=== PATIENT | female | born 1955 | race Caucasian/White ===

== ENCOUNTER 2023-11-16 06:48 | Outpatient (OUT) | payer MEDICARE, SELFPAY ==
[2023-11-16 07:30] LABS: Basophils Percent Auto 0.4 % (0.2-2.0); Eosinophils Absolute Auto 0.2 10^3/uL (0.0-0.7); Eosinophils Percent Auto 2.3 % (0.9-7.0); Hematocrit 42.4 % (36.0-48.0); Hemoglobin 12.9 g/dL (12.0-16.0); Immature Granulocytes Abs Auto 0.02 10^3/uL (0.00-0.03); Immature Granulocytes Pct Auto 0.2 % (0.0-0.5); Lymphocytes Absolute Auto 1.3 10^3/uL (1.2-3.8); Lymphocytes Percent Auto 14.5 % (20.5-60.0); Mean Corpuscular HGB Conc 30.4 g/dL (29.9-35.2); Mean Corpuscular Hemoglobin 27.9 pg (26.7-34.0); Mean Corpuscular Volume 91.6 fL (81.0-99.0); Mean Platelet Volume 9.4 fL (9.5-13.5); Monocytes Absolute Auto 0.6 10^3/uL (0.3-0.8); Neutrophils Percent Auto 76.6 % (43.0-75.0); Platelet Count 305 10^3/uL (150-450); Red Blood Count 4.63 10^6/uL (4.20-5.40); Red Cell Distribution Width 13.2 % (11.0-15.0); White Blood Count 9.1 10^3/uL (4.0-11.0)
[2023-11-16 08:15] LABS: Alanine Aminotransferase 25 U/L (14-59); Albumin Globulin Ratio 1.1; Albumin Level 3.5 g/dL (3.4-5.0); Alkaline Phosphatase 89 U/L (46-116); Anion Gap 12.1; Aspartate Amino Transferase 15 U/L (15-37); Bilirubin Total 0.6 mg/dL (0.2-1.0); Calcium 9.5 mg/dL (8.5-10.1); Carbon Dioxide 29.5 mmol/L (21.0-32.0); Chloride 105 mmol/L (98-107); Chol HDL Ratio 3.1; Cholesterol 218 mg/dL (<=200); Estimated GFR (African America >60 (>=60); Estimated GFR (Non-African Ame 59 (>=60); Globulin 3.2 g/dL; Glucose 97 mg/dL (74-106); HDL Cholesterol 70 mg/dL (40-60); Potassium 4.6 mmol/L (3.5-5.1); Sodium 142 mmol/L (136-145); Total Protein 6.7 g/dL (6.4-8.2); Triglycerides 166 mg/dL (<=150); VLDL CHOLESTEROL 33.2 mg/dL
== END 2023-11-16 06:49 | disposition home or self-care (01) ==
PROVIDERS: PCP Family Medicine; Visit Provider Family Medicine
DX: Z00.00 Encounter for general adult medical examination without abnormal findings (principal); E78.2 Mixed hyperlipidemia
CPT/HCPCS: 36415; 80053; 80061; 85025

== ENCOUNTER 2023-12-09 07:28 | Outpatient (OUT) | payer MEDICARE, SELFPAY ==
--- NOTE | 2023-12-09 07:31 | MM_ITS ---
Patient Name: JUANITA STOKES MR#: [id number] : 1955 Exam Date: 12/09/2023 Ordering Doctor: DR Yun Belcher M.D. RADIOLOGY REPORT PROCEDURE: MM TOMOSYNTHESIS SCREENING BI COMPARISON: MG MAMM SCREEN 3D FRED CAD, 11/18/2022. MG MAMM SCREEN 3D FRED CAD, 11/10/2021. INDICATIONS: Screening Calculator Name NCI Breast Cancer Risk Assessment Tool 5 Year Breast Cancer Risk 3.10% Lifetime Breast Cancer Risk 10.50% Personal Breast Cancer No Personal Ovarian Cancer No Treatments None Family Cancers Father with skin cancer at age ~70; Sister with breast cancer at age 38; Uncle-paternal with colon cancer at age 86. LOCATION: [facility] BREAST COMPOSITION: Scattered areas fibroglandular density. FINDINGS: DIAGNOSTIC CATEGORY 1--NEGATIVE. NO CHANGE FROM COMPARISON ASSESSMENT. Scattered benign-appearing calcifications are present. Scattered benign-appearing lymph nodes are present. RIGHT BREAST: No significant suspicious finding. LEFT BREAST: No significant suspicious finding. RECOMMENDATIONS: ROUTINE MAMMOGRAM AND CLINICAL EVALUATION IN 12 MONTHS. PLEASE NOTE: A NORMAL MAMMOGRAM DOES NOT EXCLUDE THE POSSIBILITY OF BREAST CANCER. A CLINICALLY SUSPICIOUS PALPABLE LUMP SHOULD BE BIOPSIED. Dictated by: Swapnil Vincent MD on 12/12/2023 at 07:56 Approved by: Swapnil Vincent MD on 12/12/2023 at 07:57
--- OUTSIDE RECORDS SUMMARY | 2023-12-09 07:31 | XMS_ITS | CCD ---
Author Name Unknown Address [address] [place] [address] Organization [facility] Care Team Providers Care [employer] News Reporter Name Role Phone KamleshBabita Unavailable YUN GLOVER Primary Care Physician [phone] Vishal WOODARD Attending Unavailable Vishal WOODARD Referring Unavailable Vishal WOODARD Admitting Unavailable Racheal Macias Admitting Unavailable Racheal Macias Attending Unavailable Racheal Macias Attending Unavailable Yun Glover Unavailable DR YUN GLOVER Primary Care Unavailable DIAB ., PAYAM Admitting Unavailable DIAB ., PAYAM Consulting Unavailable DIAB ., PAYAM Attending Unavailable ADALBERTO, DR YUN Tijerina Primary Care Unavailable ADALBERTO, DR YUN Tijerina Primary Care Unavailable ADALBERTO, DR YUN Tijerina Attending Unavailable PRESTON, DR SOLOMON Byrne Consulting Unavailable ADALBERTO, DR YUN Tijerina Admitting Unavailable ADALBERTO, DR YUN Tijerina Consulting Unavailable Camila Mcdonald Unavailable MD Yun Glover Primary Care Provider [phone] GOLDY Mcdonald Attending Provider MD Yun Glover Attending Provider Yun Glover Attending Unavailable Yun Glover Admitting Unavailable Camila Mcdonald Attending Unavailable Camila cMdonald Admitting Unavailable Yun Glover Primary Care Unavailable Allergies Allergy Classification Reported Allergen(s) Allergy Type Date of Onset Reaction(s) Facility (5 sources) patient allergy list reviewed by nurse or physicia Propensity to adverse reactions 9 Comment:Done Freeze Tag Other (5 sources) Allergies Reconciled Propensity to adverse reactions Unknown Freeze Tag Other Medications Current Medications Medication Drug Class(es) Dates Sig (Normalized) Sig (Original) Aspir-81 81 MG (7 sources) take 1 tablet by mouth once daily Aspir-81 81 MG 1 tablet Orally Once a day Active aspirin 81 mg oral tablet (2 sources) Platelet Aggregation Inhibitor, Nonsteroidal Anti-inflammatory Drug Start: 02-15-2013 take 1 tablet by mouth once daily aspirin 81 mg oral tablet 81 mg = 1 tab(s), Oral, Daily, Refills(s) 0, Prophylaxis Start Date: 02/15/13 Status: Ordered atorvastatin 10 mg oral tablet (9 sources) HMG-CoA Reductase Inhibitor Start: 02-15-2013 take 1 tablet by mouth once daily at bedtime Lipitor 10 mg Tab 10 mg = 1 tab(s), Oral, Once a day (at bedtime), Refills(s) 0, High cholesterol Start Date: 02/15/13 Status: Ordered take 1 tablet by mouth once najma y Atorvastatin Calcium 20 MG TAKE 1 TABLET BY MOUTH EVERY DAY for 90 Active Atorvastatin Elliott cium Active calcium carbonate 1250 mg oral tablet (4 sources) take 1 tablet by mouth every twelve hours Calcium 500 MG 1 tablet with meals Orally Twice a day Active famotidine 20 mg oral tablet (2 sources) Histamine-2 Receptor Antagonist Start: End: take 1 tablet by mouth once daily at bedtime Pepcid 20 mg Tab 20 mg = 1 tab(s), Oral, Once a day (at bedtime), X 90 day(s), # 90 tab(s), Refills(s) 0, Pharmacy: [facility]/pharmacy #[id number], 169, cm, 12/10/22 14:03:00 EST, Height/Length Dosing, 92.2, kg, 12/10/22 14:03:00 EST, Weight Dosing Start Date: 12/10/22 Stop Date: 03/10/23 Status: Ordered magnesium sulfate 225 MG / potassium chloride 188 MG / sodium sulfate 1479 MG Oral Tablet [Sutab] (1 source) Start: 023 take 1 tablet by mouth once Sutab oral tablet See Instructions, 1 EA, Refill(s) 0, BOB, Please follow instructions per packaging and physician's handout, [facility]/pharmacy #[id number], 169, cm, 12/10/22 14:03:00 EST, Height/Length Dosing, 92.2, kg, 12/10/22 14:03:00 EST, Weight Dosing Start Date: 12/10/22 Status: Ordered meloxicam 15 mg oral tablet (6 sources) Nonsteroidal Anti-inflammatory Drug take 1 tablet by mouth every twenty-four hours Meloxicam 15 MG 1 tablet Orally Once a day for 30 days Active methylPREDNISolone 4 mg oral tablet (2 sources) Corticosteroid Start: Medrol 4 MG as directed Orally As Directed for 6 days Jul, Active montelukast 10 mg oral tablet (2 sources) Leukotriene Receptor Antagonist Start: take 10 mg by mouth once daily montelukast 10 mg, Oral, Daily, Refills(s) 0, Allergy symptoms Start Date: 07/15/21 Status: Ordered omeprazole 20 mg delayed release oral capsule (7 sources) Proton Pump Inhibitor take 1 capsule by mouth once daily PriLOSEC 20 MG 1 capsule Orally Once a day Active pantoprazole 40 mg delayed release oral tablet (4 sources) Proton Pump Inhibitor Start: 023 End: 023 take 1 tablet by mouth once daily Pantoprazole [address] Tab 40 mg = 1 tab(s), Oral, Daily, X 90 day(s), # 90 tab(s), Refills(s) 2, Pharmacy: [facility]/pharmacy #[id number], 169, cm, 12/10/22 14:03:00 EST, Height/Length Dosing, 92.2, kg, 12/10/22 14:03:00 EST, Weight Dosing Start Date: 12/10/22 Stop Date: 09/06/23 Status: Ordered Completed/Discontinued Medications Medication Drug Class(es) Dates Sig (Normalized) Sig (Original) Docusate (7 sources) Doculase Not-Ervin ing/PRN Doculase Not-Ervin ing Doculase Active paxlovid (300/100) 20 x 150 mg & 10 x 100mg tablet therapy pack (3 sources) Start: 02-24-2023 take 3 tablets by mouth every twelve hours Paxlovid (300/100) 20 x 150 MG & 10 x 100MG 3 tablets Orally Twice a day for 5 days Feb, Not-Taking/PRN triamcinolone acetonide 40 mg/ml injectable suspension (6 sources) Corticosteroid Start: 05-26-2022 Kenalog-40 May, 40 mg Vitamin D 1000 UNIT (7 sources) take 1 tablet by mouth once daily as needed Vitamin D 1000 UNIT 1 tablet Orally Once a day Not-Taking/PRN take 1 tablet by mouth once najma y Vitamin D 1000 UNIT 1 tablet Orally Once a day Not-Taking take 1 tablet by mouth once najma y Vitamin D 1000 UNIT 1 tablet Orally Once a day Active {20 (nirmatrelvir 150 MG Oral Tablet) / 10 (ritonavir 100 MG Oral Tablet) } Pack [Paxlovid 5-Day] (3 sources) Start: 02-24-2023 take 3 tablets by mouth every twelve hours Paxlovid (300/100) 20 x 150 MG & 10 x 100MG 3 tablets Orally Twice a day for 5 days Feb, Not-Taking Start: 02-24-2023 take 3 tablets by mo uth every twelve hours Paxlovid (300/100) 20 x 150 MG & 10 x 100MG 3 tablets Orally Twice a day for 5 days Feb, Active Problems Active Problems Problem Classification Problem Date Documented Da te Episodic/Chronic Coagulation and hemorrhagic disorders (5 sources) Spontaneous ecchymosis; Translations: [Spontaneous ecchymoses] Episodic Disorders of lipid metabolism (10 sources) Hyperlipidemia; Translations: [Hyperlipidemia, unspecified] Chronic Diverticulosis and diverticulitis (2 sources) Diverticulitis 07-27-2019 Chronic E Codes: Struck by; against (1 source) Walked into furniture, initial encounter; Translations: [WALKED INTO FURNITURE INITIAL ENC] Onset: Episodic Esophageal disorders (12 sources) Gastroesophageal reflux disease; Translations: [GERD [Gastroesophageal reflux disease]] Chronic Gastritis and duodenitis (2 sources) Chronic gastritis 09-04-2021 Chronic Hemorrhoids (2 sources) Hemorrhoids 07-27-2019 Episodic Joint disorders and dislocations; trauma-related (6 sources) Patellofemoral stress syndrome; Translations: [Patellofemoral disorders, right knee] Chronic Osteoarthritis (5 sources) Primary osteoarthritis, left ankle and foot; Translations: [Osteoarthritis of left foot] Chronic Other aftercare (1 source) manager terminal (current) use of aspirin; Translations: [FCI CURRENT USE OF ASPIRIN] Onset: 3 Episodic Other and unspecified benign neoplasm (6 sources) History of polyp of colon 12-09-2022 Episodic Other and unspecified benign neoplasm (3 sources) Polyp of colon; Translations: [Polyp of colon] Onset: 3 09-28-2019 Episodic Other circulatory disease (2 sources) Feeling of lump in throat 07-15-2021 Episodic Other connective tissue disease (3 sources) Other specified soft tissue disorders; Translations: [OTHER SPEC SOFT TISSUE DISORDERS] Onset: 3 Episodic Other connective tissue disease (1 source) Pain in left foot Episodic Other gastrointestinal disorders (2 sources) Abdominal wind pain 12-10-2022 Episodic Other gastrointestinal disorders (2 sources) Heartburn 07-27-2019 Episodic Other lower respiratory disease (5 sources) Chronic cough; Translations: [Chronic cough] Episodic Other non-traumatic joint disorders (5 sources) Arthralgia of the lower leg; Translations: [Pain in right knee] Episodic Other nutritional; endocrine; and metabolic disorders (5 sources) Obese class I; Translations: [Body mass index (BMI) 31.0-31.9, adult] Chronic Other screening for suspected conditions (not mental disorders or infectious disease) (5 sources) Encounter for screening mammogram for malignant neoplasm of breast; Translations: [ENC SCR MAMMO MALIG NEOPLASM BREAST] Onset: 2 Episodic Other upper respiratory disease (12 sources) Seasonal allergic rhinitis; Translations: [Other seasonal allergic rhinitis] Chronic Other upper respiratory disease (1 source) Other seasonal allergic rhinitis Onset: 1 Resolved: 1 Chronic Other upper respiratory disease (5 sources) Allergic rhinitis; Translations: [Allergic rhinitis, unspecified] Chronic Residual codes; unclassified (2 sources) Family history of cancer of colon 12-10-2022 Episodic Residual codes; unclassified (2 sources) Family history of polyp of colon 12-10-2022 Episodic Residual codes; unclassified (5 sources) Family history of breast cancer; Translations: [Family history of malignant neoplasm of breast] Episodic Residual codes; unclassified (5 sources) Family history of malignant neoplasm of gastrointestinal tract; Translations: [Family history of malignant neoplasm of digestive organs] Episodic Residual codes; unclassified (5 sources) Family history of diabetes mellitus; Translations: [Family history of diabetes mellitus] Episodic Screening and history of mental health and substance abuse codes (1 source) Personal history of nicotine dependence; Translations: [PERSONAL HISTORY OF NICOTINE DEPEND] Onset: 3 Episodic Superficial injury; contusion (1 source) Contusion of right lower leg, initial encounter; Translations: [CONTUSION RIGHT LOWER LEG INITIAL] Onset: 3 Episodic Unclassified (1 source) Encounter for screening for malignant neoplasm of cervix; Translations: [Encounter for screening for malignant neoplasm of cervix] Onset: 3 Unclassified (1 source) Pain in left foot; Translations: [Pain in left foot] Onset: 3 Past or Other Problems Problem Classification Problem Date Documented Da te Episodic/Chronic Acute bronchitis (5 sources) Acute bronchitis; Translations: [Acute bronchitis, unspecified] Onset: 12-04-2013 Episodic Conditions associated with dizziness or vertigo (5 sources) Benign paroxysmal positional vertigo; Translations: [Benign paroxysmal positional vertigo] Onset: 05-19-2017 Episodic Esophageal disorders (1 source) Esophageal disorders Immunizations and screening for infectious disease (6 sources) Contact with and (suspected) exposure to other viral communicable diseases; Translations: [Vaccination given] Onset: 09-14-2018 Resolved: 10-13-2021 Episodic Mycoses (5 sources) Candidiasis; Translations: [Candidiasis, unspecified] Onset: 09-10-2015 Episodic Other connective tissue disease (1 source) Myalgia/myositis - multiple; Translations: [Unspecified myalgia and myositis] Onset: 03-16-2019 Episodic Other connective tissue disease (5 sources) Hand pain; Translations: [Pain in unspecified hand] Onset: 12-25-2013 Episodic Other connective tissue disease (5 sources) Spasm; Translations: [Spasm of muscle] Onset: 09-14-2018 Episodic Other connective tissue disease (4 sources) Muscle pain; Translations: [Unspecified myalgia and myositis] Onset: 03-16-2019 Episodic Other non-traumatic joint disorders (5 sources) Shoulder joint pain; Translations: [Pain in joint, shoulder region] Onset: 08-14-2013 Episodic Other upper respiratory disease (5 sources) Bleeding from nose; Translations: [Epistaxis] Onset: 09-14-2018 Episodic Other upper respiratory infections (5 sources) Acute maxillary sinusitis; Translations: [Acute recurrent maxillary sinusitis] Onset: 08-30-2016 Episodic Residual codes; unclassified (1 source) Family history of malignant neoplasm of breast; Translations: [FAMILY HX MALIG NEOPLASM OF BREAST] Onset: 11-20-2022 Episodic Residual codes; unclassified (1 source) Family history of malignant neoplasm of digestive organs; Translations: [FAM HX MIRTA NEOPLASM DIGESTIV ORGN] Onset: 11-20-2022 Episodic Residual codes; unclassified (1 source) Family history of malignant neoplasm of other organs or systems; Translations: [FAM HX MALHOLGER NEOPLASM OTH ORGN/SYS] Onset: 11-20-2022 Episodic Urinary tract infections (5 sources) Acute cystitis; Translations: [Acute cystitis] Onset: 09-10-2015 Episodic Viral infection (1 source) COVID-19 Results Test Name Value Interpretation Reference Range Facility IGP,Aptima HPV,Age Gdlnon Pap Image Guided Note Normal . [facility] Comment on above: Order Comment: LATISHA LIZAMA TECHNIQUE:: BROOM-ALONE GYNOCOLOGICAL BODY SITE:: CERVIX ENDOCERVIX Result Comment: TEST S RESULT FLAG UNITS REF RANGE LAB Clinician Provided Cytology Information Source.............Cervix;Endocervix No. of containers..01 ThinPrep Vial Age Algo ACOG Allyn... Note 01 <21 or >65 or no age provided FLAG LEGEND: L-Low Normal,H-High Normal,LL-Alert Low,HH-Alert High <-Panic Low,>-Panic High,A-Abnormal,AA-Critical Abnormal Performed at: 01 =G [facility] [address] [place] [id number] Argelia Stewart MD, Performed By: #### P AP [id number] #### [facility] , Result Comment: TEST S RESULT FLAG UNITS REF RANGE LAB DIAGNOSIS: 02 NEGATIVE FOR INTRAEPITHELIAL LESION OR MALIGNANCY. CELLULAR CHANGES ASSOCIATED WITH ATROPHY ARE PRESENT. Specimen adequacy: 02 Satisfactory for evaluation. Endocervical component may not be distinguished in cases of atrophy. Performed by: 02 John Birch, Conveyor Technician ([facility]) . 02 Note: Note 02 The Pap smear is a screening test designed to aid in the detection of premalignant and malignant conditions of the uterine cervix. It is not a diagnostic procedure and should not be used as the sole means of detecting cervical cancer. Both false-positive and false-negative reports do occur. Test Methodology: Note 02 This liquid based ThinPrep(R) pap test was screened with the use of an image guided system. FLAG LEGEND: L-Low Normal,H-High Normal,LL-Alert Low,HH-Alert High <-Panic Low,>-Panic High,A-Abnormal,AA-Critical Abnormal Performed at: 02 WB [facility] [address] [place] [address] Argelia Stewart MD, Performed at: =G - [facility] [address], [place] [id number] Flame Hardening Machine Setter: Argelia Stewart MD, Phone: [phone] Performed at: - [facility] [address], [place] [id number] Flame Hardening Machine Setter: Argelia Stewart MD, Phone: [phone] PERFORMED BY: [address] [facility] PATHOLOGIST CHIEF CONCIERGE ROSALBA SONI M.D. XR foot LT min 3V*on 023 XR foot LT min 3V* [facility] [employer] Other XR foot LT min 3V* [facility] Freeze Tag Other XR foot LT min 3V* [address] [facility] Freeze Tag Other XR foot LT min 3V* [facility] Freeze Tag Other XR foot LT min 3V* XRay Report Freeze Tag Other XR foot LT min 3V* Signed Freeze Tag Other XR foot LT min 3V* Patient: Sharyn Riggs MR#: [id number] Freeze Tag Other XR foot LT min 3V* : 1955 Acct:[id number] Freeze Tag Other XR foot LT min 3V* Age/Sex: 68 / F ADM Date: 08/06/23 Freeze Tag Other XR foot LT min 3V* Loc: XDUCLY Room: Type: [facility] Freeze Tag Other XR foot LT min 3V* Attending Dr: Camila WINSLOW Freeze Tag Other XR foot LT min 3V* Copies to: GOLDY Broderick Freeze Tag Other XR foot LT min 3V* Ordering Provider: GOLDY Brdoerick Freeze Tag Other XR foot LT min 3V* Date of Service: 08/06/23 Freeze Tag Other XR foot LT min 3V* XR/XR foot LT min 3V*: LEFT FOOT PAIN Freeze Tag Other XR foot LT min 3V* XR foot LT min 3V* 08/06/2023 11:23 AM Freeze Tag Other XR foot LT min 3V* SIGNS AND SYMPTOMS: Left foot pain along the dorsum of the left foot/metatarsals for 3 weeks Freeze Tag Other XR foot LT min 3V* PROTOCOL: Frontal, lateral, and oblique radiographs of the left foot Freeze Tag Other XR foot LT min 3V* COMPARISON: None Freeze Tag Other XR foot LT min 3V* FINDINGS: Freeze Tag Other XR foot LT min 3V* The bones are in anatomic alignment. There is no fracture or dislocation. Degenerative changes are Freeze Tag Other XR foot LT min 3V* noted throughout the midfoot with mild soft tissue swelling over the dorsum of the midfoot. Mild Freeze Tag Other XR foot LT min 3V* plantar and Achilles surface calcaneal spurring is noted. Freeze Tag Other XR foot LT min 3V* XR/XR foot LT min 3V* Freeze Tag Other XR foot LT min 3V* IMPRESSION: Freeze Tag Other XR foot LT min 3V* No acute bony injury. Freeze Tag Other XR foot LT min 3V* Degenerative changes are noted in the midfoot with soft tissue swelling over the dorsum of the Freeze Tag Other XR foot LT min 3V* midfoot. Freeze Tag Other XR foot LT min 3V* Impression dictated by: Jay Bowling M.D.08/06/2023 11:49 AM Freeze Tag Other XR foot LT min 3V* Dictation Location: RADIO-PC-13 Freeze Tag Other XR foot LT min 3V* Transcribed By: PWS 08/06/23 [facility] Freeze Tag Other XR foot LT min 3V* Dictated By: Jay Bowling II, MD 08/06/23 [facility] Freeze Tag Other XR foot LT min 3V* Signed By: Freeze Tag Other XR foot LT min 3V* 08/06/[address] [place] [address] [employer] Other XR foot LT min 3V* [facility] Main [place] [address] [place] [address] XRay Report Signed Patient: Sharyn Riggs MR#: [id number] : 1955 Acct:[id number] Age/Sex: 68 / F ADM Date: 08/06/23 [facility]: Type: [facility] Attending Dr: Camila WINSLOW Copies to: GOLDY Broderick Ordering Provider: GOLYD Broderick Date of Service: 08/06/23 XR/XR foot LT min 3V*: LEFT FOOT PAIN XR foot LT min 3V* 08/06/2023 11:23 AM SIGNS AND SYMPTOMS: Left foot pain along the dorsum of the left foot/metatarsals for 3 weeks PROTOCOL: Frontal, lateral, and oblique radiographs of the left foot COMPARISON: None FINDINGS: The bones are in anatomic alignment. There is no fracture or dislocation. Degenerative changes are noted throughout the midfoot with mild soft tissue swelling over the dorsum of the midfoot. Mild plantar and Achilles surface calcaneal spurring is noted. XR/XR foot LT min 3V* IMPRESSION: No acute bony injury. Degenerative changes are noted in the midfoot with soft tissue swelling over the dorsum of the midfoot. Impression dictated by: Jay Bowling M.D.08/06/2023 11:49 AM Dictation Location: [place] [address] Transcribed By: NICKY 08/06/23 1149 Dictated By: Jay oBwling II, MD 08/06/23 1147 Signed By: 08/06/23 1149 [facility] Postoperative Documentson Postoperative Documents [id number] 1.00CD:127 Normal [facility] Patient Letter FTMCon 2022 Patient [place] [facility] [place] 15, 2023 [place] [address] SHARYN RIGGS 1955 Below is a summary of the results of your recent colonoscopy. Your results have been sent to your primary care provider along with recommendations on when the procedure should be repeated. COLONOSCOPY WITH POLYP REMOVAL _X__ Normal - NO CANCER Type of polyp tubular adenoma - not cancer but can become cancer if not removed. Additional colonoscopies will be necessary to monitor your condition and assure that new polyps have not developed. Based on your results we are recommending you repeat the procedure in 5 years You will be placed in our reminder system and will receive a reminder letter prior to your next due date. [facility] [phone] Normal [facility] Reminderson 02-15-2023 Reminders - From: Elisabeth Beck I To: JULIO - Reminders/Recalls; Sent: 02/15/2023 14:22:52 EDT Show up: 12/10/2027 14:22:00 EST Subject: Colonoscopy Recall Due Date/Time: 02/08/2028 14:22:00 EDT Reminder/Recall 5 year colon recall 02/08/2028 Dr. Woodard [facility] IntraOperative Documentson 0 02-11-2023 IntraOperative Documents [id number] .00CD:127 [facility] Coding Summary.on 02-10-2023 Coding Summary. CD:[id number] W w+PGhlYWQ+QZ9DCQKxL01 ahGOadD3vL9FIBUjAKqoj DSYOBJvQEpMxycKrDI8gp XNjZXJu IC8+RN8oBOQaXdbgwZXuh 1Q4eRM3Q96lbv5kIMvcyX J7THXqTmZyzeqas2sqvIo 6IDcuNmluOyBt NWRphL77MYH1fI40Pz69w CBshZGpb8uxgSh5ThKwEU MzWDT9bBqnBCsqr2IiGQA oA21iaGXyr8B9 HFPaoJvobTNoBgThdYJ2y Y0rVKwncbfpd5tdjvksOv u5fq47dYGhr2F0lTW2D3M lvgY6YNJukYOi LaxppNNXrI7vibfeu4zln jskXnZnVPCeFIm2HYp5SH FzjNixKlHmJX21RYK9NLW uabDfO1QqFPTs sZsqAtA7z4S1Ff9BF5YJX kbuR6LDRRDYYGpyqEG+PC 52ox82Q8LyBbbgUcz0HYY wQJK7aAG8eG9y YOSfJOhxb7L1mUD5V4Eyk sVgkt1tg1hsOVAjOFsyG4 7zxCLps7D6OEQuiTL7MZY ppCtaAxIzjG17 Oyc+WDKepXfrg7RtPxzqp 0xiy0zkqHb8CuctLVXckb UyjZnuUYG7y1WdYq4qEYQ qbME3pJV4zB1u IaDsSoK9ADndL972CaIzx FCdNykdB63hG2ZqeHD+PH AgGzt8ROHqxIrfRX7vE2U hZGRpbmctbGVm sUntQX2oTCRqfqvzHDTag F3fMYDyJ1c8QiMcQoC4LH iyK9XtQLXwnfklKe17kO3 dIpZsWpL0ZPgl R6YfllP8NBLpeJMaNRmbK KB8C24tk9A6WWIoEOZxDK N2cRT4hS1mwJnkvwsfcTA mdDsgdmVydGlj NUsgQHjdW787QMBopUumL kNvZGluZyBEYXRlOiAgMD MvMjMvMjAyMzwvdGQ+PHR tOLT5fCuoDOAl zMAdLLhbBr1pdWsnxZpbL I6nVSSbfaoeYMChjX5uZN MecNKfaUauNQ9jVJKglff zx824OaKcSOO2 EANufKAoN4BbqI9oDlHcA HVjXVPsN1IcsCEyXSxgV1 32TKvbEjQ9JVKafvZnP2C sLWFsaWduOiB0 i9B9Hz9Tl5PgyxjxO0Euc QYiBxQyMotrLOb9G7NjEo wvdHI+WS78CPFtBT68OSm 1WTU9sAsjFXyl JVYmQ1VmnJ6zVeLyQDLnJ GRkOyc+PHRhYmxlIHdpZH RoPScxMDAlJyBzdHlsZT0 xAe2vJRZnPXGl kSsigBGfWmNev5bvXBKbJ FjmCX0kvEusE3VadJA3QK Qko2h7Xs11E91zQ7QuzOH +RMKjsJV8dZS5 pS5gYcFnRpC5BGfvL559K qKcjOIdZtuwz3nnr7lrcJ t6KoM9MLPbvtOtcOnkKDY 4f8AeOm02L45p IHdpZHRoPSIxNSUiIHZhb Qrxrb7wqF4mIt2+PGNvbC U6bJH3uU5bRfXbOcQ2UOr sS855BcKlxUPj Vxzcl2wjz3qukWq0JdWkG MQzlcLisJirTHG8v7OuZj 18B6SqvAhje4QdVgk1ti8 3bPTdr2B2dUX8 D3AnIUGsvbnvgUMacOvyG I0sTPDqsiohMOHozZ0fIG NlZ5d4RmDtAzC2WVfyE4E aeqR0WBRabPDp GWAlwZUKfN0zfqctr0zcx uatKtFdMKMpHRd9ISq9PB NpiTmiRiAxSGY9DkB6WLN 5dNQlmD4zrGwx jaswwE2aSzr+QME1tRPzw DCJSM2bXmwzoDC+PHRkIH K2bUwcCNwxOKIgtE7mIGD lN8c0XgYyKuJ7 HUxuR8PdreC7DZOtpALtY CTxuPOMhL6nozrck8oulz mjMtOnSKCxELo8FDa0WFZ saWduOiBsZWZ0 PcV4YKC4tXQpbJ2ztSbsj ekepN2gQzo+QmlydGggRG S8EYg6A2JmZua1ELKvjNn eOS0lcOEmYZac Ub8ukLszvNuiQD5vATMfl ylts767OxTvu8ejNVByoM KzNKlmXOJ8S64ry2W1MLL iYABsOQI0cDY4 jL9auHawaanchIOajDaew qKcwSjrFOsyIPsqL577JL CspTvwIcPnTGb8F8QlSdd 7DSRlnYcuMW9g uGRrDBorQj6vnTlpoZgiH T0rEMZoknzue372KjAhb1 ocDFYuzYIrMFkzXSB7U73 ew1W6UDUgCNCo FSD5iJB4bP4vqIzmrnnsg GVmdDsgdmVydGljYWwtYW zvL997VXNpcGhaKyArpTr 3F0HrLtg6OMAu iZcyGG9spIAcDErvMc5xz JivlBkaPG6dXGBokqpum0 45FpSjr4fgZALebJGmGPv mZPM6P29ge6X4 IFCcMUFmTJZ1fLR9hM3lk GlnbjogbGVmdDsgdmVydG yfWSmxBZyxZ911FIDbpXg nPlBhdGllbnQg THxeSFz6E0QmPywldOC+P T12GMOuGL90jILghPEbm7 xmbKv6TxTnBAYmFBW0uQh wSQbzc7QwRFGg P66ouLJkr5N6HHIkpQjuv CMaXgDwqHY8xW3sPOwpha utf1rsvmauVbejs4kdmw8 9vF55R52wMFge ZHRoPSIzMCUiIHZhbGlnb b5jwX8nGh7+XBEofTO0nA D8oS7dHZMkRtZ4NVooC91 9InRvcCIvPjxj r3kpa0kgrWy9SaE7ZIWjs vAuaRbkUMO4p8EeQy04E3 9sIHdpZHRoPSIyMCUiIHZ lzVkokh7nuH5o Ii8+ODLvbHB3nUC2uX3zC pByLyY8JMdvF250OwCcoN LeHrhtE33uH0DtxON+PHR wAkh6PXGkfAza WK0ryWRkRAhtIn9sUWM7G xEvEfKjRXkxY3HzAYLfxq ffbculeFQ7SANlVDVkkH5 9Mu5tjNjlAHXz eMSUmR0afxtpc3vynizaV xBtUVTwJNe7MHr5PGDodS lxSlLiXGM3NbE4DWD4hKC szL3ixZzsmkwj kT7qJ9HhSRQrhpzfNm65r P1dUxFqVeQ4LPmaMrm+Tk 9ATVNJLK7CGZmwtEV+PHR gYRL6cRymIYbi PQKsuN8tHZNgI0v4SpTbA yT2TMxkD8KhPSGytuibRw 60xZ8eSjOmYeL6CJemI1T wflZ6OQNnqBJc XWwbEJH6T14ju2F6EVVhN WZlRQA1uJC1iX1yhDbygk ogbGVmdDsgdmVydGljYWw kPTmcC770WJZu kVdxMmZ2YjJ6UjN0YQQ9P 6ZsThq8LSNudCmfNT8yvO HvHYjlIq4fnCzyzQeqWS4 wNTBpbjtwYWRk xS7mDHLrlKKkdSwzZB1wA UMvjoqsk188KfZvIUS1TM WaeASmP1FyeV9oDmIoOGY jESAbA7IiwGBv JZzfR037ZYfwDxB1MLUwc vRqJ5LcHKMzbUsqJlX7m2 Y6Ug69PaSTJZVkkeqxnFN +FFApUCR8bPji PFwmMCTxjO4yUXXwT0h8P pPjHgO0VAypG1JtJADxnk vhJa28eV1lLfTtYzH9ZYw gK4VqzzF4REYz mNGeGGplZIA0E35tt9Z0C NRhLRLxSHT3nUF5hB4yeX lnbjogbGVmdDsgdmVydGl nXDfrDIbtC997 IHRvcDsnPkZlbWFsZTwvd GQ+KYJlGNX8aYtzHVtqAR KfrG5zYEDhI7t1SzPtFbH 9BVvmZ6JsVGDr lmxjWj54oX0lLjBpCgQ1C EerX0JcbfW0PCArwIXaVP tjFSE3T48dm9K2NEEgTME nZIQ5lNA0hE7b bGlnbjogbGVmdDsgdmVyd FbeQXhnJBgfB720RGWpvF xwWg08vEHdvGwfwkB8O6G kPjwvdHI+PC90 RWIrAJ82gMDjdGAol0mwt Nr4RfQzBXAsXAV8uUfsPB nvy2GmBTMlH42jyKOhv6M 6IGNvbGxhcHNl WcWguHB2cG0eVOeubdrfj 6ejbkixKcbav7hbgc85pD 95G54wJEoxVLCqSYCpYJO kFLBlwLzqqj5t sW2pTc9+QYXogBJ7hOT6e W4lHsZuXcI4YDonQ373Wq OroRPaYaxib0cbq8zkcJh 9IjIwJSIgdmFs nJuzSJM6l0MbLa78D65pB HdpZHRoPSIyMCUiIHZhbG absb0hxY1xDc0+EK0oh5l olb32gW09eSY+ BQKjKBG0rIsoZPhiJVQua Z1lJMlnGiF7BTOxLhQlkS 36gUQpIPssEm2ujLjnsRp hMO0dVWFqcyqk x604YmSyy8gaVHZfgKJwM GrgUFC0E35vp8O8IRDuHI IzVNO2jMD6rB6daZgexko gbGVmdDsgdmVy cAplMTbcPCoeS831TUGzi CsaQuFtyTVxM7gbcsGBRP 1lOjwvdGQ+GFIwHAQ1tLj yTAcfSYAniJ3u FPHxD6n0NeKwXbI4DWzyJ 5MbmsS5GUKmjLKfLDLtkI CCdR1hyigpm5xprjkvBsZ uMPScXBo0XOu4 OFQgjVziAyKwHIB0KpG1O FX1zTFbvY7nxBaijbzppR 9wOyc+RklOOjwvdGQ+PHR rNYU3zKnfRNpq QDPewI3eAHUhB7h4PvYsO aO0DYqxP5KjhdP4DJYvkC JjZCHunPUXnS3ngwanq9h vcjogIzAwMDAw UOc9TTi3PLAdrSplZkDwQ UL0ImY5RYN3gXEccQ5hzQ gzhddgmX8sTts+TVJOOjw vdGQ+PHRkIHN0 iIitUFliZXWpxE7lLQSnY 5g4WsLeOvV5UYjsN0Irvo E6QSYgtXGaLSIhyJPDsJ7 ynezkh4uwljtc YpKuOZIpRPh7FUc8AXPgx OedCjTzJUN9VsB8LKC9jB JtaB6vzArhwcofbN2aIci +DEX0IVG1ZG01 YD94P6VlJqwswTOohXJ+P HRhYmxlIHdpZHRoPScxMD DnUlAadZrfKH7jRe0hVGM yLWNvbGxhcHNl MjEed0ha (more content not included)... Normal [facility] Main OR Intraoperative Recor don 02-10-2023 Main OR Intraoperative Record IntraOp Document Type FT Summary Primary Physician: Vishal WOODARD MD Finalized Date/Time: 02/10/23 07:41:19 Pt. Name: SHARYN RIGGS /Sex: 1955 Female Med Rec #: [id number] Physician: Vishal WOODARD MD Financial #: [id number] Pt. Type: O Room/Bed: / Admit/Disch: 02/07/23 12:18:07 - 02/07/23 23:59:59 Institution: Case Times FT Entry 1 Patient Times In Room 02/07/23 13:15:00 Out Room 02/07/23 13:38:00 Procedure Times Start 02/07/23 13:26:00 Stop 02/07/23 13:36:00 Anesthesia Times Start 02/07/23 13:15:00 Stop 02/07/23 13:38:00 Time at [place] 02/07/23 13:29:00 Last Modified By: Anna Borja RN 02/07/23 13:39:22 General Comments: 02/10/23 Chart opened to review and send charges LRoth CSFA Case Attendance FT Entry 1 Entry 2 Entry 3 Case Attendee Huong Virk CRNA, RN, Ann Irizarry Role Performed ANIMAL HUSBANDMAN [employer] Teacher Librarian - Primary Staff - Other Time In 02/07/23 13:15:00 02/07/23 13:15:00 02/07/23 13:25:00 Time Out 02/07/23 13:38:00 02/07/23 13:38:00 02/07/23 13:38:00 Procedure COLONOSCOPY(.) COLONOSCOPY(.) COLONOSCOPY(.) Comments Dr. Prescott supervising Help in room. procedure. Last Modified By: Kev BLACKBURN, Amy Borja RN, Anna Borja RN, Anna Salazar 02/10/23 07:40:43 02/07/23 13:39:30 02/07/23 13:39:30 Entry 4 Entry 5 Case Attendee Mauro BLACKBURN, Sonali WOODARD MD, Vishal Fletcher Role Performed Scrub - Primary Surgeon - Primary Time In 02/07/23 13:15:00 02/07/23 13:15:00 Time Out 02/07/23 13:38:00 02/07/23 13:38:00 Procedure COLONOSCOPY(.) COLONOSCOPY(.) Comments Last Modified By: Huong RN, Anna Borja RN, Anna Salazar 02/07/23 13:39:30 02/07/23 13:39:30 Perioperative Protocols FT Pre-Care Text: Implements protective measures prior to operative or invasive procedure, confirms identity before the operative or invasive procedure, verifies operative procedure, surgical site, and laterality Entry 1 Procedure(s) COLONOSCOPY(.) Patient Identity Birthday, ID Band Verified (select at Check, Patient least 2): Participation Consents / H and P Anesthesia Consent, Operative Site N/A Verified HandP, Surgery/Procedure Marking Verified Consent Surgical Site No Laterality Verified n/a Verified Procedure Verified Yes Correct Patient Yes Position Verified Availability Equipment, Medication Prep Dry n/a Verified (If Applicable) PreOp Antibiotic No Time Out Moose ANIMAL HUSBANDMAN, Given Participants Huong Knight RN, Mauro Joyner CST, SAMIR Salazar MD, Maher Time Out Complete 02/07/23 13:18:00 Outcomes Met? Yes Last Modified By: Anna Borja RN 02/07/23 13:18:24 Post-Care Text: The patient is free from signs and symptoms of injury caused by extraneous objects Allergy Information FT Pre-Care Text: Verifies allergies Entry 1 Allergies Reviewed? Yes Allergies Reviewed Self/Patient With Outcomes Met? Yes Last Modified By: Anna Borja RN 02/07/23 13:18:32 Post-Care Text: The patient received appropriate medication(s) safely administered during the perioperative period Surgical Procedures FT Entry 1 Procedure Description Procedure COLONOSCOPY Modifiers . Surgeon Description Colonoscopy with cecal mucosa bridge biopsy, ascending colon polypectomy. Primary Procedure Yes Primary Surgeon Vishal WOODARD MD Start 02/07/23 13:26:00 Stop 02/07/23 13:36:00 Anesthesia Type General Surgical Service Gastroenterology Wound Class 2 - Clean-Contaminated Last Modified By: Anna Borja RN 02/07/23 13:37:06 General Case Data FT Pre-Care Text: Classifies surgical wound, implements aseptic technique, initiates traffic control Entry 1 Case Information OR ENDO 1 FT Case Level Level 2 Wound Class 2 - Clean-Contaminated Specialty Gastroenterology ASA Class 2 Preop Diagnosis Hx colon polyps Postop Same As Preop No Postop Diagnosis External hemorrhoids, Outcomes Met? Yes ascending colon polyp and internal hemorrhoids. Last Modified By: Anna Borja RN 02/07/23 13:37:14 Post-Care Text: The patient is free from signs and symptoms of infection Skin Assessment (Pre Procedure) FT Pre-Care Text: Implements protective measures to prevent skin/ tissue injury due to thermal or mechanical sources Evaluates for signs and symptoms of physical injury to skin and tissue Entry 1 Skin Integrity Intact, [place], Warm, and Skin Abnormality No Dry Outcomes Met? Yes Last Modified By: Anna Borja RN 02/07/23 13:19:08 Post-Care Text: The patient is free from signs and symptoms of injury caused by extraneous objects Patient Positioning FT Pre-Care Text: Identifies physical alterations that require additional precautions for procedure-specific positioning, verifies presence of prosthetics or corrective devices, positions the patient, evaluates the patient for signs and symptoms of injury as a result of positioning Entry 1 Procedure COLONOSCOPY( (more content not included)... Normal [facility] Consenton 02-09-2023 Consent [id number]#1 .00CD:127 Normal [facility] Discharge Instructionson Discharge Instructions [id number]#1 .00CD:127 Normal [facility] Consent for Treatmenton 01-20 Consent for Treatment [id number]#1 .00CD:127 Normal [facility] Endoscopic Procedure Report - Otheron 02-07-2023 Endoscopic Procedure Report - Other Patient: SHARYN RIGGS Age: 67 years Sex: Female : 1955 Associated Diagnoses: None Author: Vishal WOODARD MD Pre-Procedure Procedure Date 02/07/2023 13:37:00 . Procedure Type: Colonoscopy with removal of tumor(s), polyp(s), or other lesion(s) by cold snare technique. Procedure provider Performed by Vishal Woodard MD. Current history and physical Documented on chart. Colorectal neoplasm risk assessment Average risk. Informed Consent After discussing the rationale, risks and benefits, and alternatives to this procedure, the patient provided signed consent for the procedure. Pre-procedure diagnosis: History of colon polyps. ASA Classification: Class III. . Procedure The procedure was performed in the hospital. Rectal exam was performed and was normal with no masses palpated. The patient was positioned in the left lateral decubitus position and a digital rectal exam was performed.. Endoscope type used was an adult-size. The endoscope was lubricated then introduced through the anus. The scope was advanced to the cecum verified by photographing the appendiceal orifice, verified by photographing the ileocecal valve, verified by transillumination, The time to the cecum was 3 minutes, The withdrawal time was 7 minutes. No difficulties encountered during the procedure. The bowel preparation quality was adequate (see polyps greater than or equal to 6 millimeters). The patient tolerated the procedure well. Findings 1. Sessile polyp, 5 mm, in the ascending, removed completely with cold snare 2. Moderate nonbleeding internal and external hemorrhoids Images Procedure images: Rec1_hd_video_ __[id number].jpg Rec1_hd_video_ _[id number].jpg Rec1_hd_video_2022_ __[id number].jpg Rec1_hd_video_ __[id number].jpg Rec1_hd_video_ __[id number].jpg . Post-Procedure Complications: none. Estimated blood loss: none. Specimens: sent to pathology. Devices/ implants: none left in place. Impression and Plan 1. Sessile polyp, 5 mm, in the ascending, removed completely with cold snare 2. Moderate nonbleeding internal and external hemorrhoids Recommendations: Repeat colonoscopy:: In 5 years, Pending pathology results. Follow-up:: Clinic follow-up in 1-2 weeks. Diet:: Resume previous diet. Medication resumption:: Continue current medications. Return to activities:: After 24 hours. Cecal mucosal bridge noted, 1 cm, biopsied [facility] Comment on above: Result Comment: Elec tronically Signed By: Vishal WOODARD MD\.br\Date and Time Signed: 02/07/23 14:08 EDT Other Comment: Neelam mckeon Attachment - attachment storage system not supported [id number] Can be viewed in source system Missing Attachment - attachment storage system not supported [id number] Can be viewed in source system Missing Attachment - attachment storage system not supported [id number] Can be viewed in source system Missing Attachment - attachment storage system not supported [id number] Can be viewed in source system Missing Attachment - attachment storage system not supported [id number] Can be viewed in source system Main OR PACU I Recordon 01-20 Main OR PACU I Record PACU Phase I Document Type FT Summary Primary Physician: Vishal WOODARD MD Finalized Date/Time: 02/07/23 14:20:26 Pt. Name: SHARYN RIGGS/Sex: 1955 Female Med Rec #: [id number] Physician: Vishal WOODARD MD Financial #: [id number] Pt. Type: O Room/Bed: / Admit/Disch: 02/07/23 12:18:07 - Institution: Case Times PACU I FT Pre-Care Text: Identifies barriers to communication and implements measures to provide psychological support Develops individualized plan of care, and ensures continuity of care Maintains patient's dignity and privacy, and maintains patient confidentiality Identifies and reports philosophical, cultural, and spiritual beliefs and values Identifies individual values and wishes concerning care Implements aseptic technique, and administers prescribed antibiotic therapy and immunizing agents as ordered Evaluates postoperative tissue perfusion Implements thermoregulation measures, and monitors body temperature Evaluates postoperative respiratory status Evaluates postoperative cardiac status Evaluates postoperative neurological status Assesses pain control, collaborated in initiating patient-controlled analgesia and implements alternative methods of pain control Verifies allergies, administers prescribed medications and solutions, evaluates response to medications Entry 1 In PACU I 02/07/23 13:41:00 Discharge from PACU 02/07/23 14:11:00 I Outcomes Met? Yes Last Modified By: Stephanie Bustillo I 02/07/23 14:20:08 Post-Care Text: The patient demonstrates knowledge of the expected response to the operative or invasive procedure The patient's care is consistent with the individualized perioperative plan of care The patient's right to privacy is maintained The patient's value system, lifestyle, ethnicity, and culture are considered, respected, and incorporated into the perioperative plan of care The patient participates in decisions affecting his or her perioperative plan of care The patient is free from signs and symptoms of infection The patient has wound/tissue perfusion consistent with or improved from baseline levels established preoperatively The patient is at or returning to normothermia at the conclusion of the immediate postoperative period The patient's respiratory function is consistent with or improved from baseline levels established preoperatively The patient's cardiovascular status is consistent with or improved from baseline levels established preoperatively The patient's cardiovascular status is consistent with or improved from baseline levels established preoperatively The patient demonstrates and/or reports adequate pain control throughout the perioperative period The patient received appropriate medication(s), safely administered during the perioperative period Acuity Level PACU I FT Entry 1 Start Time 02/07/23 13:41:00 Stop Time 02/07/23 14:11:00 Acuity Level Acuity Level I Last Modified By: Stephanie Bustillo I 02/07/23 14:20:20 Finalized By: Stephanie Bustillo I Document Signatures Signed By: Stephanie Bustillo I 02/07/23 14:20 [facility] Main OR Preoperative Recordo n 02-07-2023 Main OR Preoperative Record Holding Area Document Type FT Summary Primary Physician: Vishal WOODARD MD Finalized Date/Time: 02/07/23 12:51:47 Pt. Name: SHARYN RIGGS /Sex: 1955 Female Med Rec #: [id number] Physician: Vishal WOODARD MD Financial #: [id number] Pt. Type: O Room/Bed: / Admit/Disch: 02/07/23 12:18:07 - Institution: Case Times Holding FT Pre-Care Text: Verifies consent for planned procedure, identifies individual values and wishes concerning care, includes family members in perioperative teaching Secures patient's records' belongings, and valuables, maintains patient's dignity and privacy, and maintains patient confidentiality Entry 1 In Holding 02/07/23 12:40:00 Outcomes Met? Yes Last Modified By: Mak Scott RN 02/07/23 12:50:21 Post-Care Text: The patient participates in decisions affecting his or her perioperative plan of care The patient's right to privacy is maintained Surgery Checklist FT Entry 1 Patient Birthday, ID Band Procedure History and Physical, Identification: Check, Patient Verification: Surgical Consent, With Participation Patient NPO after Midnight: No Date/Time: 02/07/23 09:30:00 Results Reviewed light yellow liquid Personal Items: Glasses Comments: bowel results Personal Items glasses, clothing, shoes Limitations: none Comment: Complaints of Pain: No Pain Comment: pt denies any pain at this time Operative Site n/a Marked By: n/a Marking: Location: n/a Availability Equipment Verified: Does Patient Smoke No Patient states Yes Comment - Adult Spouse- Romeo postop adult Supervision supervision available Case Cancelled in No Holding Area see comments below for reason Last Modified By: Mak Scott RN 02/07/23 12:51:46 General Comments: pt finished bowel prep at 0930, per patient nothing to eat or drink since MSRN Finalized By: Mak Scott RN Document Signatures Signed By: Mak Scott RN 02/07/23 12:51 Normal [facility] Monitor Recordon 02-07-2023 Monitor Record [id number]# 1.00CD:127 Normal [facility] Monitor Record [id number]# 1.00CD:127 Normal [facility] Progress Note-Physicianon Progress Note-Physician Patient: SHARYN RIGGS Age: 67 years Sex: Female : 1955 Associated Diagnoses: None Author: Ellis Prescott Jr., DO Postoperative Information Postoperative disposition: Postoperative disposition: Home. Optimetrix number: Optimetrix number [id number]. Anesthetic utilized: General. Physical Examination Vital Signs 02/07/2023 14:06 EDT Heart Rate Monitored 59 bpm LOW Respiratory Rate Monitored 17 br/min (Modified) Systolic Blood Pressure 120 mmHg Diastolic Blood Pressure 78 mmHg Mean Arterial Pressure, Cuff 92 mmHg SpO2 96 % 02/07/2023 13:55 EDT Heart Rate Monitored 58 bpm LOW Respiratory Rate Monitored 14 br/min Systolic Blood Pressure 119 mmHg Diastolic Blood Pressure 78 mmHg Mean Arterial Pressure, Cuff 92 mmHg SpO2 100 % 02/07/2023 13:50 EDT Heart Rate Monitored 50 bpm LOW Respiratory Rate Monitored 15 br/min Systolic Blood Pressure 118 mmHg Diastolic Blood Pressure 77 mmHg Mean Arterial Pressure, Cuff 91 mmHg SpO2 98 % 02/07/2023 13:45 EDT Heart Rate Monitored 55 bpm LOW Respiratory Rate Monitored 16 br/min Systolic Blood Pressure 116 mmHg Diastolic Blood Pressure 63 mmHg Mean Arterial Pressure, Cuff 81 mmHg SpO2 96 % 02/07/2023 13:41 EDT Temperature Temporal Artery 36.8 DegC Heart Rate Monitored 57 bpm LOW Respiratory Rate Monitored 17 br/min Systolic Blood Pressure 105 mmHg Diastolic Blood Pressure 62 mmHg Mean Arterial Pressure, Cuff 76 mmHg SpO2 99 % Pain Assessment: Controlled. General: Awake, Alert, Appropriate. Respiratory: Adequate air exchange, Non-labored. Cardiovascular: Stable, Normal peripheral perfusion. Neurological: Neurologic exam at baseline. No changes.. Assessment Anesthetic outcome No anesthetic complications noted. No nausea/vomiting. Review / Management Condition: Stable. Plan Transfer/Discharge: Transfer/Discharge Discharge when meets criteria ( From PACU to Ambulatory Surgery Unit, and To home ). [facility] Comment on above: Result Comment: Elec tronically Signed By: Ellis Prescott Jr., DO\.br\Date and Time Signed: 02/07/23 15:00 EDT Progress Note-Physician Patient: SHARYN RIGGS Age: 67 years Sex: Female : 1955 Associated Diagnoses: None Author: Ellis Prescott Jr., DO Preoperative Information Anesthesia history: Patient history: No prior anesthetic problems. Informed consent: Signed by patient. Re-evaluation prior to induction: Initial evaluation reviewed: No significant change. Review of Systems Respiratory: Negative except as documented in history of present illness. Cardiovascular: Negative except as documented in history of present illness. Health Status Allergies: Allergic Reactions (Selected) No Known Allergies, Allergies (1) Active Reaction No Known Allergies None Documented Current medications: (Selected) Inpatient Medications Ordered Lactated Ringers IV Addis 1000 mL 1,000 mL: 1,000 mL, IV, 100 mL/hr, Routine, Start date 02/07/23 12:29:00 EDT, 10 hour(s), Total volume (mL): 1,000 Sodium Chloride 0.9% IV Addis 1000 mL 1,000 mL: 1,000 mL, IV, 20 mL/hr, Routine, Start date 02/07/23 7:00:00 EDT, 50 hour(s), Total volume (mL): 1,000 Prescriptions Prescribed Pantoprazole [address] Tab: 40 mg = 1 tab(s), Oral, Daily, X 90 day(s), # 90 tab(s), Refills(s) 2, Pharmacy: [facility]/pharmacy #[id number], 169, cm, 12/10/22 14:03:00 EST, Height/Length Dosing, 92.2, kg, 12/10/22 14:03:00 EST, Weight Dosing Pepcid 20 mg Tab: 20 mg = 1 tab(s), Oral, Once a day (at bedtime), X 90 day(s), # 90 tab(s), Refills(s) 0, Pharmacy: [facility]/pharmacy #[id number], 169, cm, 12/10/22 14:03:00 EST, Height/Length Dosing, 92.2, kg, 12/10/22 14:03:00 EST, Weight Dosing Sutab oral tablet: See Instructions, 1 EA, Refill(s) 0, BOB, Please follow instructions per packaging and physician's handout, [facility]/pharmacy #[id number], 169, cm, 12/10/22 14:03:00 EST, Height/Length Dosing, 92.2, kg, 12/10/22 14:03:00 EST, Weight Dosing Documented Medications Documented Lipitor 10 mg Tab: 10 mg = 1 tab(s), Oral, Once a day (at bedtime), Refills(s) 0, High cholesterol aspirin 81 mg oral tablet: 81 mg = 1 tab(s), Oral, Daily, Refills(s) 0, Prophylaxis montelukast: 10 mg, Oral, Daily, Refills(s) 0, Allergy symptoms, Home Medications (6) Active aspirin 81 mg oral tablet 81 mg = 1 tab(s), Oral, Daily Lipitor 10 mg Tab 10 mg = 1 tab(s), Oral, Once a day (at bedtime) montelukast 10 mg, Oral, Daily Pantoprazole [address] Tab 40 mg = 1 tab(s), Oral, Daily Pepcid 20 mg Tab 20 mg = 1 tab(s), Oral, Once a day (at bedtime) Sutab oral tablet See Instructions , Medications (2) Active Scheduled: (0) Continuous: (2) Lactated Ringers 1,000 mL 1,000 mL, IV, 100 mL/hr Sodium Chloride 0.9% 1,000 mL 1,000 mL, IV, 20 mL/hr PRN: (0) Problem list: All Problems Chronic gastritis / SNOMED CT 40138814 / Confirmed Colon polyps / SNOMED CT 968617585 / Confirmed Diverticulitis / SNOMED CT 247273487 / Confirmed Encounter for colonoscopy due to history of colonic polyp / SNOMED CT 6881297248 / Confirmed Family history of colon cancer / SNOMED CT 339385047 / Confirmed Family history of colonic polyps / SNOMED CT 7088776637 / Confirmed Gas pain / SNOMED CT 974293930 / Confirmed Heartburn / SNOMED CT 70746091 / Confirmed Hemorrhoids / SNOMED CT 633886246 / Confirmed History of colon polyps / SNOMED CT 1127848925 / Confirmed History of rectal polyps / SNOMED CT 3560971403 / Confirmed Obesity / ICD-9-CM 278.00 / Possible Sensation of lump in throat / SNOMED CT 023301050 / Confirmed Histories Past Medical History: No active or resolved past medical history items have been selected or recorded. Procedure history: Esophagogastroduodeno scopy and biopsy ([id number]) on 08/31/2021 at 66 Years. Colonoscopy ([id number]) on 09/24/2019 at 64 Years. Tonsillectomy (915019472). Social History Social & Psychosocial Habits Alcohol 07/27/2019 Risk Assessment: Denies Alcohol Use Exercise 07/27/2019 Risk Assessment: Does not exercise Other 07/27/2019 Name: Caffeine-Coffee 2 cups daily Substance Abuse 07/27/2019 Risk Assessment: Denies Substance Abuse Tobacco 12/10/2022 Tobacco Use: Former smoker, quit more Smokeless tobacco use: Never Type: Cigarettes . Physical Examination VS/Measurements Airway: Mallampati classification: II (soft palate, fauces, uvula visible). Respiratory: Lungs are clear to auscultation, Respirations are non-labored. Cardiovascular: Regular rhythm. Plan [place] [employer] (ASA) physical status classification: Class II. Anesthetic Preoperative Plan: Anesthesia General, and -TIVA. [facility] Comment on above: Result Comment: Elec tronically Signed By: Ellis Prescott Jr., DO\.br\Date and Time Signed: 02/07/23 12:30 EDT Coding Summary.on 12-14-2022 Coding Summary. CD:[id number] G h0bWw+PGhlYWQ+GD9LMJX oY51hkQHwwP6TJ8hZLJ4O FIMMUADNEK5DMN9orBQ6R DtqH7BrriLp RvyseNTfQV39ENo8GMN8d PgzIYfibY8bnRKoG5e6Gl XoHD15wW53OHquFHUzXkL 3LjZpbjsgbWFy Y5hoRtXmdQOkYrp+PHRhY mxlIHdpZHRoPScxMDAlJy FfxAxrQC9yEm1zQIZeADH vbGxhcHNlOiBj r3qtREJfBYxrQC5fxDflJ 8LffTV6COVww3f3Fm37zA I+IMJlWAY1fCddOYevj50 5JvKcj2ppIYE5 tBHcRYgeXOR7M56be1F0N BRiNQUvQIT4nQL3dT5pcL pqprrwH6BlgAAfDtC5UFJ 9yVZglH9jyWnw gdheoO9yKrm+S95BOF0II NQMCB4KAfh4P0HgSbjieC I+SX22DORtGI01zQVrqFY pv4jxeLo5PkVx XRDbVPA7lNooLUcyv0ThF UUiX48mpGHvo6K7OMMxxA usbSTwEsIcqCN9aW2cHEv vohshm1crowbb Kxjne5tncl89wE87J60sB AyiUBHjISE3IXSuOWVhsA vyol9avC5vJb1+MRllh1k fl3ikoFl2SyGv CBGyjzGuvSmeFOJ9x5FgC k22I9HlxYfan8QaVkg0sf 21uVZvf2V6cEL3AJzkKBX qfX5eAHdlQwK9 UHSkQfPnpE80wIBiGOtfG h1koUehtZsjQR8hMCZsqi gqIJKipY0hWKZenGNccWw oAK2gYQErszub y136TnVwZIU1YKYqhIEqJ 1LopF5eVtGwWDFvJGLwW3 ZcdSMaWZhnZ126KPvyJjK 9ORBrypNpN8Vj BTCmnPxcFbY8f0I4Nn9Dl 2RorraxXZT3ZHegYLMtZl W6HcVgWeK6N0XvUxw6DJI ibKqsHD0yT6Dm VMJxpbdxbjldkPG2ARCtT FPfyJ54mSTgXDnnRd5fn1 Q8o926GDAqQDTeyR80Vg2 udDogMTBwdCBU eW8fimfnu7gligqmSrJiK QWdZCq6OAo5FMBspKopTj QdWDH3XwV0LUH5gJLzyB1 eeSbmsdnzwT1l Oyc+O86pfF7xBRV3MNV5m rfkFASfurXyUJ78VH36G9 RyPjwvdGFibGU+PGRpdiB ucHtuZU5rGpNf j2hxw5QjFPifM7HtAAVdT KjkTew1OUBpGGX4qMZ6bZ 2rGXKlTFlay1U8fXE6V4S dxzZfce7zr3cn HOMoZAxgW07haJVxl0K8X JSqkPS0OZAfxBogQiEqbM 93Oyc+UMXcfZujs8HcKbs pc7wyo8wwuZz1 LlOaSUNyavHpmTjrTPR0f 6BlRh88T00cJHujDPMjBK FdTFEkRDItjRbggh2muQ4 wIi8+PGNvbCB3 pLF8kF8pHRCpMaR2OCmkF 744ZkHdgALuMrhqn0tqv9 tnjIw9DfYsPBHnghZhsVk zBUU9t1QdJw72 T62cXQnzHRXqDLHoSNBiE PBxsBnojc1amV4lPa4+PC 5sc2ypts67sQ61pCP+PHR lCNU6jKvuGGqi MLQvlA7wJTqgGtM6ZPEnE tAqhU00mHFcBKanVc9vuI yeaObsEV7fWPQnupofs95 9PqDyn4giJEDb jIRvEVfwOGK4H69nz4I8Y ZNsFTUbDKQ1aEA8wC7joQ lnbjogbGVmdDsgdmVydGl rUOnbFIkwI160 IHRvcDsnPlBhdGllbnQgT rDaHHe4H0CeYof1GXGdiH ojVA5tkZNhAMabDx2rtCs trUpyGH8hQPOd gzkrs992TzYxi1eyNZDzy THjXUowKXY9T75yj2I0YH JwKJOrHOX2oLO3xC3olFd nbjogbGVmdDsg faJgiUltSJryUYhqS033G HRvcDsnPkJpcnRoIERhdG M2AY07JR95kXZxm0A6nLD 7I9WyKXRifbuj vltetNZ4VSFvZZQisG51Q i4frVawQk6hOEBiJPN1OL GdrLGiJ7SzgU8uJsOvWGZ fDZGmG4UskVNs WEutO957YWrhBrK0RTRcb sFxP0OpKODwnNkwVcM8m7 B9Mf7HD4Z6JX86IG98dZT ph8Q0nDC3C0Vj BCGjajooamsxoHI9UJTlF RXgyI10Ud9urNzuBp2lYM LxZME6PAIcdYDcZ5ZykF4 yOiAjMDAwMDAw R1UyyBHlDYmfB974IOlxD nG1FOPzmpTzX7WeTVAwoY swIlC8e9L5Lx5YWWt0IG8 9AB68mLBil4I8 wFM3N9VwCKHicnfghcvim XT7TMWxSGEiuV30Um4fkK owBb8qXODpRTL5CJGqoVS aC2ShwY2cReSt TXBrZBXqK4LgfFJqPIheY 588EDjzUmO6HJQrhjKdV4 EfXPTqjXcvLcH5l6S3Xn5 NYUClOZ47BVT0 sBI8OJ29TF25H7YpExuxd GFibGU+PHRhYmxlIHdpZH RoPScxMDAlJyBzdHlsZT0 xJj0rQWEbOSHw gJliyQWcRgWdy9gpVXFjE DteBP4wkPukO6JirZF3SK Zsh6g9Of34Z83hH6YmoLT +DSAkrSS8yQE1 dB9eZvLzRvW0FDhgJ710M mIhlFGpEgtxx3tmk3cvyO y8LdE0ZNNkxnPhpTryKSP 1b8PgYv71A00k IHdpZHRoPSIxNSUiIHZhb Hsoyf0paV2lCv1+PGNvbC Q2cIQ3pJ0aOzPzBxY1BFa pN888YfAmrUZv Ghyjl6ibd3aoeQf7EnGjE BDnddEecEhkAJN9y0SbZr 13B6ZlkIsmi4PaHrc4le1 2sZZii1L6kPY2 U3VsCNGpdjzliXBykCmsL O6dLTNrwbnkREDsiN5iRL UlY6y5XiUuArT3GQgpZ1X frtZ7CYStwUHg GDhfEEZ7A84px3M1GAFyJ RFgWQZ9jJW3xX4zuYrhhi ogbGVmdDsgdmVydGljYWw uEDmhR260JRZz yXwtHFWbjD7rCJPdnNRtm WhoTF0mQKOnpmfmLl7ZHR fuMpDWZZY8S3EwZah8LXP chSviZJ2jmRGz GNxnWu9oxMeluRfcLM9rQ KKvbmfePFHcgP4oXPMwbV MfcUsmMH8gPOAtsvpay04 4BbXbUFC3NMQg wCLqR1SszN4oIuLsSWRcX YSvT1DocBNwKJxuZ380DG fnNaV8LFThauYuO2RcUVP rzAfuXcW8a0S5 Ss4vWu2cLT3oMNE1LD71G G43sZPcz8G5lQE9I6JgUT XozwmbsmmvyWO8RPFwNYM tgL08hQWoSIhk Ma9lx6S5m047CELjTROyg U61Td4hgRinJCYwcKRYzS 1atsmyf5dlxohnMxRbYUF tIQl4SBv0PJUl iRcxXoSpHBY0LiC3LMB7o QLytK7ohLpwqrrxvQ6yKx c+MaDfQUUohcH0Q6KvCrt 9KFFylYdgVG8d mSEyZJzeGx9dqQrhoFziZ V3oFFUvfldrPMCfsN7bKL RnmTQxiTstSW0aXUOwxeh fe687TfRuKRN9 RTRemLPiQ5ThqZ0fYsWuW ZEtXCXfO7KqcSLaINnwW4 77ZZbfQfZ9NUSmywXdZ5V sLWFsaWduOiB0 v3V6Rj4ERW7euGH7Z4LxF xl6EGYdbLzsJB7fnRQrRT bfIm5ppEctiOebVM6bKAK cxtumBCGogW4d YLPrlCBtuNyhVZ1oCYVfy sflr028AmMlXHC1AIDycT KyX0RhhI2qZuUeHNYwMMI hH4BihLXdPJfi J084GPlmTcF2QTDzoaWbU 6WtTKQniPuyMuR4l0A4Tk 3TjKQuJEOnMK13SA86SB4 1Q9OtLcxouGBz bGU+PHRhYmxlIHdpZHRoP YtqNVBqHlOzzTiuNG1kNy 9yZGVyLWNvbGxhcHNlOiB fn6jgYXLxICef MZ6mcXwmI7MubZA3NSBdn 8x2Ag37J43tC8LzaYD+PG RrwRO4vKN1dH0zLeMrXqG 8LYtjA740IoHo eISbMtfep4ytw5njwVx4V uXpGDGmrwUcdTynXHM6q2 NfNy76I85mIOulZQIeNMG yMCUiIHZhbGln ee8ifG5wZb3+BUAsnHY4s ZL4mJ5mNlAwUuS1DCbxH7 60XcDbvHYnKhryG19sE6V vdXA+PHRyPjx0 JIKqgYjbTT5cjTTuEHywD y9pHUJ8SxCwKsGbVVxkB7 RuLTEzyukcdihikMZ2YFR xQJYluY05Vh8y eWvdVp5nXNScIQW7CPRst GDqU6KwvJ8eUwLyDOMnDO JnQ9XvaNEoWKoxE559CGl gAoH3SVPanqJb M1NoBVMpwZqoXqM0r9W4F x6OaDpqoCUnSS9zDaRfZJ i4Z1PqEaa7JKLprKpkPA4 wdTGkCVufJg3h hKmucKhrMK0rQFQinkwwp 267BhBkb0dpISZdvOPhJQ gpAZA2I89jm7P4VBNbKAP pTCZ8vBA7lH1x bGlnbjogbGVmdDsgdmVyd MblRIlgGAjfL449VJPqxD qsIoOJXfy7Q3HmEeh1RXH txCqzCI3dnZWr QPzgDp1omNwohXpdAK5tA RYmuampa875OnGzp9uwGF FwhPXqBIodSCY3V44sq4N 4GJAvMEYtZMZ4 oDL2wW6fkPelzadgbEPql DsgdmVydGljYWwtYWxpZ2 12NEEjtRziIe7LZej8G6N dSsf6CKVfrRll TR9otWTpUSfoEw6xtWcda MwhSL4hOHPguaknp819Gg Tor2jbNCLotRXyFUpxPSO 9O81qv4J6QATy THMlYBR2nRX2rP4cjBsez jogbGVmdDsgdmVydGljYW oxPDbiE569MQJqiFkrQrV heWVyOjwvdGQ+ MB02bf91B2RqMqmrReu3P RTwFZQ7oWQ3qM1xTFJiMB tqg3D1nKO1D5CndaGpqq3 wj3sqMIVbCXdv Y29s (more content not included)... Normal [facility] Consent for Procedure/Surger yon 12-13-2022 Consent for Procedure/Surgery [id number] .[id number]:127 Normal [facility] Ambulatory Visit Summaryon 0 12-10-2022 Ambulatory Visit Summary SHARYN RIGGS :1955 Visit Date:12/10/2022 Ambulatory Visit Instructions Your Diagnosis History of colon polyps History of rectal polyps Heartburn Gas pain Family history of colon cancer Family history of colonic polyps Your Care Team Attending Physician - Racheal Macias CNP Primary Care Physician - YUN GLOVER MD This Is Your Medications List famotidine (Pepcid 20 mg Tab) magnesium sulfate/potass Cl/sodium sulf (Sutab oral tablet) pantoprazole (Pantoprazole [address] Tab) Contact prescribing physician if questions or concerns aspirin (aspirin 81 mg oral tablet) atorvastatin (Lipitor 10 mg Tab) montelukast Procedures Performed Esophagogastroduodeno scopy and biopsy (08/31/2021), Colonoscopy (09/24/2019), Tonsillectomy. Discharge Vitals Temperature (Temporal Artery) 36.3 ?C Heart Rate (Peripheral) 58 Blood Pressure 132/82 Height 169 cm Height 67 in Weight 92.2 kg Weight 202.84 lb BMI 32.28 What to do next Scheduled Follow-Up Appointments Tuesday 1:30 PM EDT Where: [facility] You Need to Schedule the Following Appointments Follow Up with Racheal Macias CNP When: Within 1 to 2 weeks Comments: Following colonoscopy. Where: Medications What How Much When Why Instructions New famotidine (Pepcid 20 mg Tab) 1 Tablets By Mouth Once a day (at bedtime) Heartburn Duration: 90 Days Pickup at [facility]/pharmacy #[id number] New magnesium sulfate/ potass Cl/ sodium sulf (Sutab oral tablet) See instructions Please follow instructions per packaging and physician's handout Pickup at [facility]/pharmacy #[id number] Changed pantoprazole (Pantoprazole [address] Tab) 1 Tablets By Mouth Every day Heartburn Duration: 90 Days Pickup at [facility]/pharmacy #[id number] Unchanged aspirin (aspirin 81 mg oral tablet) 1 Tablets By Mouth Every day Contact prescribing physician if questions or concerns Unchanged atorvastatin (Lipitor 10 mg Tab) 1 Tablets By Mouth Once a day (at bedtime) Contact prescribing physician if questions or concerns Unchanged montelukast 10 Milligram By Mouth Every day Contact prescribing physician if questions or concerns Pharmacy Information [facility]/pharmacy #[id number]: [address], [place] [id number] [phone] Allergies No Known Allergies Problems Ongoing - Any problem that you are currently receiving treatment for. Chronic gastritis Colon polyps Diverticulitis Encounter for colonoscopy due to history of colonic polyp Family history of colon cancer Family history of colonic polyps Gas pain Heartburn Hemorrhoids History of colon polyps History of rectal polyps Sensation of lump in throat Education Materials Colonoscopy, Adult A colonoscopy is an exam to look at the entire large intestine. During the exam, a lubricated, flexible tube that has a camera on the end of it is inserted into the anus and then passed into the rectum, colon, and other parts of the large intestine. You may have a colonoscopy as a part of normal colorectal screening or if you have certain symptoms, such as: ? Lack of red blood cells (anemia). ? Diarrhea that does not go away. ? Abdominal pain. ? Blood in your stool (feces). A colonoscopy can help screen for and diagnose medical problems, including: ? Tumors. ? Polyps. ? Inflammation. ? Areas of bleeding. Tell a health care provider about: ? Any allergies you have. ? All medicines you are taking, including vitamins, herbs, eye drops, creams, and pmwh-cjl-wecxmnj medicines. ? Any problems you or family members have had with anesthetic medicines. ? Any blood disorders you have. ? Any surgeries you have had. ? Any medical conditions you have. ? Any problems you have had passing stool. What are the risks? Generally, this is a safe procedure. However, problems may occur, including: ? Bleeding. ? A tear in the intestine. ? A reaction to medicines given during the exam. ? Infection (rare). What happens before the procedure? Eating and drinking restrictions Follow instructions from your health care provider about eating and drinking, which may include: ? A few days before the procedure ? follow a low-fiber diet. Avoid nuts, seeds, dried fruit, raw fruits, and vegetables. ? 1?3 days before the procedure ? follow a clear liquid diet. Drink only clear liquids, such as clear broth or bouillon, black coffee or tea, clear juice, clear soft drinks or sports drinks, gelatin dessert, and popsicles. Avoid any liquids that contain red or purple dye. ? On the day of the procedure ? do not eat or drink anything starting 2 hours before the procedure, or within the time period that your health care provider recommends. Up to 2 hours before the procedure, you may continue to drink clear liquids, such as water or clear fruit juice. Bowel prep If you were prescribed an oral bowel prep to clean out your colon: ? (more content not included)... Normal [facility] BMPon 12-10-2022 Anion gap [Moles/Vol] 9 mmol/L Normal 6-16 [facility] Comment on above: Performed By: #### 2 [id number], [id number], [id number], [id number] ####[facility] [address] [place] [address] Calcium [Mass/Vol] 9.4 mg/dL Normal 8.9-11.1 [facility] Comment on above: Performed By: #### 2 [id number], [id number], [id number], [id number] ####[facility] [address] [place] [address] Chloride [Moles/Vol] 108 mmol/L Normal 101-111 [facility] Comment on above: Performed By: #### 2 [id number], 6443283, [id number], [id number] ####[facility] [address] [place] [address] CO2 [Moles/Vol] 29 mmol/L Normal 21-31 [facility] Comment on above: Performed By: #### 2 [id number], [id number], [id number], [id number] ####[facility] [address] [place] [address] Creatinine [Mass/Vol] 0.8 mg/dL Normal 0.5-1.3 [facility] Comment on above: Performed By: #### 2 603810, 4313005, [id number], [id number] ####[facility] [address] [place] [address] Glucose [Mass/Vol] 72 mg/dL Normal 55-199 [facility] Comment on above: Result Comment: If t his glucose result represents a fasting glucose, interpretation should refer to the following reference range: 55-99 mg/dL Performed By: #### 2 [id number], 6557594, [id number], [id number] ####[facility] [address] [facility] [place] [address] Potassium [Moles/Vol] 4.0 mmol/L Normal 3.5-5.3 [facility] Comment on above: Performed By: #### 2 560313, 7131192, 7126213, [id number] ####[facility] [address] [place] [address] Sodium [Moles/Vol] 142 mmol/L Normal 135-145 [facility] Comment on above: Performed By: #### 2 865315, 1950164, 6501377, [id number] ####[facility] [address] [place] [address] Urea nitrogen [Mass/Vol] 17 mg/dL Normal 5-21 [facility] Comment on above: Performed By: #### 2 002368, 2703857, 8415419, [id number] ####[facility] [address] [place] [address] Urea nitrogen/Creatinine [Mass ratio] 21 No Units High 10-20 [facility] Comment on above: Performed By: #### 2 286100, 5121866, 6372732, [id number] ####[facility] [address] [place] [address] CHEMISTRYOrdered By: SYSTEM SYSTEM on 12-10-2022 Anion gap [Moles/Vol] 9 mmol/L Normal 6 - 16 mEq/L [facility] [place]isol Calcium [Mass/Vol] 9.4 mg/dL Normal 8.9 - 11. 1 mg/dL [facility] Chloride [Moles/Vol] 108 mmol/L Normal 101 - 1 11 mmol/L [facility] CO2 [Moles/Vol] 29 mmol/L Normal 21 - 31 mmol/L [facility] Cobalamin (Vitamin B12) [Mass/Vol] 209 pg/mL Normal 50 - 1500 pg/mL [facility] Creatinine [Mass/Vol] 0.8 mg/dL Normal 0.5 - 1.3 mg/dL [facility] GFR/1.73 sq M.predicted among blacks MDRD (S/P/Bld) [Vol rate/Area] mL/min/1.73 m2 Normal >=59mL/min/1. 73 m2 [facility] [place] Chem S GFR/1.73 sq M.predicted among non-blacks MDRD (S/P/Bld) [Vol rate/Area] mL/min/1.73 m2 Normal >=59mL/min/1. 73 m2 [facility] [place] Chem S Glucose [Mass/Vol] 72 mg/dL Normal 55 - 199 mg/dL [facility] [place] Remisol Magnesium [Mass/Vol] 2.1 mg/dL Normal 1.3 - 2 .4 mg/dL [facility] [place] Remisol Potassium [Moles/Vol] 4.0 mmol/L Normal 3.5 - 5.3 mmol/L [facility] Sodium [Moles/Vol] 142 mmol/L Normal 135 - 145 mmol/L [facility] [place] Remisol Urea nitrogen [Mass/Vol] 17 mg/dL Normal 5 - 21 mg/dL [facility] [place] Remisol Urea nitrogen/Creatinine [Mass ratio] 21 mg/mg High 10 - 20 [facility] [place] Remisol Consent for Treatmenton 11-22 Consent for Treatment [id number] .[id number]:127 Normal [facility] Gastroenterology Office/Clin ic Noteon 12-10-2022 Gastroenterology Office/Clinic Note Chief Complaint Colonoscopy recheck. HPI Staff Patient is a 67 year old female here today to schedule colonoscopy recheck and discuss Protonix. Her last colonoscopy was 09/24/2019. History of Present Illness Patient is a 67-year-old female who presents for colonoscopy. PMH of HLD- managed by patient's PCP. Patient had previous colonoscopy 09/[address] Gomez that revealed hemorrhoids, diverticulosis, hyperplastic polyp removed from cecum, transverse colon polyp that pathology revealed was with focal adenomatous changes, hyperplastic polyp removed from sigmoid, 3 hyperplastic polyps removed from rectum, and polyp from previous polypectomy site was removed. Patient had previous EGD 08/[address] Woodard that revealed normal esophagus, normal stomach, normal duodenum, stomach biopsy revealed gastritis, negative for intestinal metaplasia, negative for H. pylori. Family history of colon cancer: Patient's maternal uncle and paternal uncle. Family history of colon polyps: Patient's mother and father. Personal history of colon cancer: Denies. Personal history of colon polyps: yes, see above. Takes aspirin daily. During today's visit, patient reports she is doing well. She explains having 1 occasion of heartburn when she eats late. She reports she feels pantoprazole 40mg daily is controlling her heartburn well. Is having gas that is occurring for the last 6 months, occurring daily without regard to food. Has not tried probiotics in past. She explains feeling like water was sitting in esophagus after taking calcium pill like reflux over the last year occurring rarely and has recently started taking calcium pill during the day to see if it would help with reflux at night- occurring 1 time a week. Explains she has been taking pantoprazole at night, not during the day. Is having 1 BM every other day that is her baseline. Denies dysphagia, abdominal pain, nausea/vomiting, fevers/chills, denies diarrhea. Denies having any other GI complaints. Review of Systems PHQ Score Initial Depression Screen Score: 0 ROS - Provider Constitutional: no fever, no chills. Skin: no Jaundice. ENMT: Denies dysphagia, yes occasional heartburn. Respiratory: no shortness of breath. Cardiovascular: no chest pain. Gastrointestinal: no nausea, no vomiting, no diarrhea, no GI bleeding. Physical Exam Vitals & Measurements T: 36.3 ?C(Temporal Artery) HR: 58(Peripheral) BP: 132/82 HT: 67 in HT: 169 cm WT: 92.2 kg WT: 202.84 lb BMI: 32.28 General: Well developed, well nourished, in no acute distress Head: Normocephalic/atrauma tic Lungs: Normal respiratory effort and clear to auscultation Cardio: Regular rate and rhythm, normal S1 and S2, no murmur, no rub Abdomen: Soft, non-distended, non-tender. Normoactive bowel sounds present in all 4 abdominal quadrants, bilaterally. Mental Status: Alert and oriented x3. Normal mood and affect Assessment/Plan 1. History of colon polyps (Z86.010: Personal history of colonic polyps) Previous colonoscopy 09/2019 revealed hyperplastic polyp removed from cecum, transverse colon polyp that pathology revealed was with focal adenomatous changes, hyperplastic polyp removed from sigmoid, 3 hyperplastic polyps removed from rectum- see HPI for further details regarding. Ordered Colonoscopy. Takes aspirin daily. Ordered: Colonoscopy (Hospital Procedure) 2. History of rectal polyps (Z87.19: Personal history of other diseases of the digestive system) Previous colonoscopy 09/2019 revealed hyperplastic polyp removed from cecum, transverse colon polyp that pathology revealed was with focal adenomatous changes, hyperplastic polyp removed from sigmoid, 3 hyperplastic polyps removed from rectum- see HPI for further details regarding. Ordered Colonoscopy. Takes aspirin daily. Ordered: Colonoscopy (Hospital Procedure) 3. Heartburn (R12: Heartburn) Previous EGD 08/2021 revealed normal esophagus, normal stomach, normal duodenum, stomach biopsy revealed gastritis, negative for intestinal metaplasia, negative for H. pylori. Explains feeling like water was sitting in esophagus after taking calcium pill like reflux over the last year, and has recently started taking calcium pill during the day to see if it would help with reflux at night- occurs 1 time a week. Avoid NSAIDs. Continue pantoprazole 40mg daily.- educated to take 30 minutes before breakfast. Ordered pepcid 20mg at bedtime- instructed regarding use. Ordered vitamin B12 level and magnesium level to evaluate for deficiencies and BMP to evaluate renal function while on pantoprazole long-term. Ordered: famotidine, 20 mg = 1 tab(s), Oral, Once a day (at bedtime), X 90 day(s), # 90 tab(s), Refills(s) 0, Pharmacy: [facility]/pharmacy #[id number], 169, cm, 12/10/22 14:03:00 EST, Height/Length Dosing, 92.2, kg, 12/10/22 14:03:00 EST, Weight Dosing pantoprazole, 40 mg = 1 tab(s), Oral, Daily, X 90 day(s), # 90 tab(s), Refills(s) 2, Pharmacy: [facility]/pharmacy #[id number], 169, cm, 12/10/22 14:03:00 (more content not included)... Normal [facility] Comment on above: Result Comment: Elec tronically Signed By: Racheal Macias CNP\.br\Date and Time Signed: 12/10/22 14:51 EST Magnesiumon 12-10-2022 Magnesium [Mass/Vol] 2.1 mg/dL Normal 1.3-2.4 [facility] Comment on above: Performed By: #### 2 [id number], [id number], [id number], [id number] ####[facility] [address] [place] [address] Patient Educationon 12-10-19 Patient Education Radiology Colonoscopy, Adult A colonoscopy is an exam to look at the entire large intestine. During the exam, a lubricated, flexible tube that has a camera on the end of it is inserted into the anus and then passed into the rectum, colon, and other parts of the large intestine. You may have a colonoscopy as a part of normal colorectal screening or if you have certain symptoms, such as: ? Lack of red blood cells (anemia). ? Diarrhea that does not go away. ? Abdominal pain. ? Blood in your stool (feces). A colonoscopy can help screen for and diagnose medical problems, including: ? Tumors. ? Polyps. ? Inflammation. ? Areas of bleeding. Tell a health care provider about: ? Any allergies you have. ? All medicines you are taking, including vitamins, herbs, eye drops, creams, and zkwh-cor-uishrsd medicines. ? Any problems you or family members have had with anesthetic medicines. ? Any blood disorders you have. ? Any surgeries you have had. ? Any medical conditions you have. ? Any problems you have had passing stool. What are the risks? Generally, this is a safe procedure. However, problems may occur, including: ? Bleeding. ? A tear in the intestine. ? A reaction to medicines given during the exam. ? Infection (rare). What happens before the procedure? Eating and drinking restrictions Follow instructions from your health care provider about eating and drinking, which may include: ? A few days before the procedure ? follow a low-fiber diet. Avoid nuts, seeds, dried fruit, raw fruits, and vegetables. ? 1?3 days before the procedure ? follow a clear liquid diet. Drink only clear liquids, such as clear broth or bouillon, black coffee or tea, clear juice, clear soft drinks or sports drinks, gelatin dessert, and popsicles. Avoid any liquids that contain red or purple dye. ? On the day of the procedure ? do not eat or drink anything starting 2 hours before the procedure, or within the time period that your health care provider recommends. Up to 2 hours before the procedure, you may continue to drink clear liquids, such as water or clear fruit juice. Bowel prep If you were prescribed an oral bowel prep to clean out your colon: ? Take it as told by your health care provider. Starting the day before your procedure, you will need to drink a large amount of medicated liquid. The liquid will cause you to have multiple loose stools until your stool is almost clear or light green. ? If your skin or anus gets irritated from diarrhea, you may use these to relieve the irritation: ? Medicated wipes, such as adult wet wipes with aloe and vitamin E. ? A skin-soothing product like petroleum jelly. ? If you vomit while drinking the bowel prep, take a break for up to 60 minutes and then begin the bowel prep again. If vomiting continues and you cannot take the bowel prep without vomiting, call your health care provider. ? To clean out your colon, you may also be given: ? Laxative medicines. ? Instructions about how to use an enema. General instructions ? Ask your health care provider about: ? Changing or stopping your regular medicines or supplements. This is especially important if you are taking iron supplements, diabetes medicines, or blood thinners. ? Taking medicines such as aspirin and ibuprofen. These medicines can thin your blood. Do not take these medicines before the procedure if your health care provider tells you not to. ? Plan to have someone take you home from the hospital or clinic. What happens during the procedure? ? An IV may be inserted into one of your veins. ? You will be given medicine to help you relax (sedative). ? To reduce your risk of infection: ? Your health care team will wash or sanitize their hands. ? Your anal area will be washed with soap. ? You will be asked to lie on your side with your knees bent. ? Your health care provider will lubricate a long, thin, flexible tube. The tube will have a camera and a light on the end. ? The tube will be inserted into your anus. ? The tube will be gently eased through your rectum and colon. ? Air will be delivered into your colon to keep it open. You may feel some pressure or cramping. ? The camera will be used to take images during the procedure. ? A small tissue sample may be removed to be examined under a microscope (biopsy). ? If small polyps are found, your health care provider may remove them and have them checked for cancer cells. ? When the exam is done, the tube will be removed. The procedure may vary among health care providers and hospitals. What happens after the procedure? ? Your blood pressure, heart rate, breathing rate, and blood oxygen level will be monitored until the medicines you were given have worn off. ? Do not drive for 24 hours after the exam. ? You may have a small amount of blood in your stool. ? You may pass gas and have mild abdominal cramping or bloating due to the air t (more content not included)... Normal [facility] Vit B12on 12-10-2022 Cobalamin (Vitamin B12) [Mass/Vol] 209 pg/mL Normal 50-1500 [facility] Comment on above: Performed By: #### 2 [id number], [id number], [id number], [id number] ####[facility] [address] [place] [address] eGFRon 12-10-2022 GFR/1.73 sq M.predicted among blacks MDRD (S/P/Bld) [Vol rate/Area] mL/min/{1.73_m2} Normal >=59 [facility] Comment on above: Order Comment: Order added by Discern Expert. Result Comment: eGFR is race adjusted. AA=. Performed By: #### 2 [id number], [id number], [id number], [id number] ####[facility] [address] [place] [address] GFR/1.73 sq M.predicted among non-blacks MDRD (S/P/Bld) [Vol rate/Area] mL/min/{1.73_m2} Normal >=59 [facility] Comment on above: Order Comment: Order added by Discern Expert. Result Comment: [employer] Rep trish kidney disease could be indicated at eGFR's of less than 60 mL/min/1.73m2. Kidney failure is indicated at less than 15 mL/min/1.73m2. Performed By: #### 2 [id number], 8997611, [id number], [id number] ####[facility] [address] [place] [address] MG MAMM SCREEN 3D FRED CADon 11-18-2022 MG MAMM SCREEN 3D FRED CAD Patient: SHARYN RIGGS Exam Date: 11/18/2022 : 1955 Gender:F Ordering : DR YUN GLOVER M.D. Admission #: [id number] Family : Order #: [id number] CLICK HERE TO VIEW EXAM RADIOLOGY REPORT PROCEDURE: MAMMOGRAM SCREENING 3D BILATERAL CAD COMPARISON: MG MAMM SCREEN 3D FRED CAD, 11/10/2021. MG MAMM SCREEN FRED W CAD, 03/26/2019. INDICATIONS: Screening mammography Calculator Name NCI Breast Cancer Risk Assessment Tool 5 Year Breast Cancer Risk 3.10% Lifetime Breast Cancer Risk 11.00% Personal Breast Cancer No Personal Ovarian Cancer No Treatments None Family Cancers Father with skin cancer at age 70; Sister with breast cancer at age 38; Uncle-paternal with colon cancer at age 86. LOCATION: [facility] BREAST COMPOSITION: Scattered areas fibroglandular density. FINDINGS: DIAGNOSTIC CATEGORY 1--NEGATIVE. NO CHANGE FROM COMPARISON ASSESSMENT. Scattered benign-appearing calcifications are present. Scattered benign-appearing lymph nodes are present. RIGHT BREAST: No significant suspicious finding. LEFT BREAST: No significant suspicious finding. RECOMMENDATIONS: ROUTINE MAMMOGRAM AND CLINICAL EVALUATION IN 12 MONTHS. PLEASE NOTE: A NORMAL MAMMOGRAM DOES NOT EXCLUDE THE POSSIBILITY OF BREAST CANCER. A CLINICALLY SUSPICIOUS PALPABLE LUMP SHOULD BE BIOPSIED. Dictated by: Solomon Vincent MD on 11/18/2022 at 11:43 Approved by: Solomon Vincent MD on 11/18/2022 at 11:45 Normal [facility] COVID Quick Testingon 2020 Result Negative [employer] [facility] Other Vital Signs Date Time Vital Sign Value Performing Clinician Facility 11-07-2023 08:30-0500 Body height 171.45 cm Yun Glover Other [facility] Other 11-07-2023 08:30-0500 Body mass index (BMI) [Ratio] 31.17 kg/m2 Yun Glover Other [facility] Other 11-07-2023 08:30-0500 Body weight 91.63 kg Yun Glover Other [facility] Other 11-07-2023 08:30-0500 Diastolic blood pressure 79 mm[Hg] Yun Glover Other [facility] Other 11-07-2023 08:30-0500 Systolic blood pressure 149 mm[Hg] Yun Adalberto Other [facility] Other 08-06-2023 10:10-0400 Body height 171.45 cm Camila Mcdonald Other [facility] Other 08-06-2023 10:10-0400 Body mass index (BMI) [Ratio] 30.86 kg/m2 Camila Floresmond Other [facility] Other 08-06-2023 10:10-0400 Body temperature 97.9 [degF] Camila Floresmond Other [facility] Other 08-06-2023 10:10-0400 Body weight 90.72 kg Camila Floresmond Other [facility] Other 08-06-2023 10:10-0400 Diastolic blood pressure 76 mm[Hg] Camila Tamara Other [facility] Other 08-06-2023 10:10-0400 Respiratory rate 18 /min Camila Tamara Other [facility] Other 08-06-2023 10:10-0400 SaO2% (BldA) [Mass fraction] 97 % Camila Tamara Other [facility] Other 08-06-2023 10:10-0400 Systolic blood pressure 118 mm[Hg] Camila Tamara Other [facility] Other 02-07-2023 14:06-0400 Diastolic blood pressure 78 mm[Hg] Vishal WOODARD [facility] 02-07-2023 14:06-0400 Heart rate 59 /min Rodgers SALAM [facility] 02-07-2023 14:06-0400 Mean blood pressure 92 mm[Hg] Rodgers SALAM [facility] 02-07-2023 14:06-0400 Respiratory rate 17 /min Rodgers SALAM [facility] 02-07-2023 14:06-0400 SaO2% (BldA) [Mass fraction] 96 % Rodgers SALAM [facility] 02-07-2023 14:06-0400 Systolic blood pressure 120 mm[Hg] Rodgers SALAM [facility] 02-07-2023 13:55-0400 Diastolic blood pressure 78 mm[Hg] Rodgers SALAM [facility] 02-07-2023 13:55-0400 Heart rate 58 /min Rodgers SALAM [facility] 02-07-2023 13:55-0400 Mean blood pressure 92 mm[Hg] Rodgers SALAM [facility] 02-07-2023 13:55-0400 Respiratory rate 14 /min Rodgers SALAM [facility] 02-07-2023 13:55-0400 SaO2% (BldA) [Mass fraction] 100 % Rodgers SALAM [facility] 02-07-2023 13:55-0400 Systolic blood pressure 119 mm[Hg] Rodgers SALAM [facility] 02-07-2023 13:50-0400 Diastolic blood pressure 77 mm[Hg] Rodgers SALAM [facility] 02-07-2023 13:50-0400 Heart rate 50 /min Rodgers SALAM [facility] 02-07-2023 13:50-0400 Mean blood pressure 91 mm[Hg] Rodgers SALAM [facility] 02-07-2023 13:50-0400 Respiratory rate 15 /min Rodgers SALAM [facility] 02-07-2023 13:50-0400 SaO2% (BldA) [Mass fraction] 98 % Rodgers SALAM [facility] 02-07-2023 13:50-0400 Systolic blood pressure 118 mm[Hg] Rodgers SALAM [facility] 02-07-2023 13:41-0400 Body temperature 98.24 [degF] Rodgers SALAM [facility] 02-07-2023 12:51-0400 Blood Pressure Location Rodgers SALAM [facility] 02-07-2023 12:51-0400 Body temperature 97.34 [degF] Rodgers SALAM [facility] 02-07-2023 12:51-0400 Respiratory rate 18 /min Rodgers SALAM [facility] 10-13-2021 11:15-0500 Body height 170.18 cm Babita Whitlock Other [employer] [facility] [employer] Other 10-13-2021 11:15-0500 Body mass index (BMI) [Ratio] 31.32 kg/m2 Babita Whitlock Other [facility] Other 10-13-2021 11:15-0500 Body temperature 97.8 [degF] Babita Whitlock Other [facility] Other 10-13-2021 11:15-0500 Body weight 90.72 kg Babita Whitlock Other [facility] Other 10-13-2021 11:15-0500 SaO2% (BldA) [Mass fraction] 96 % Babita Whitlock Other [facility] Other Encounters Encounter Date Encounter Type Care Provider Facility Start: 11-17-2023 End: 11-17-2023 ambulatory Yun Glover Other [facility] Other Start: 11-17-2023 Telephone encounter Yun Glover [facility] Start: 11-16-2023 End: 11-16-2023 ambulatory Yun Glover Other [facility] [facility] Other Start: 11-16-2023 Telephone encounter Yun Glover [facility] Start: 11-07-2023 Encounter for gynecological examination (general) (routine) without abnormal findings Yun Glover [facility] Start: 11-07-2023 Patient encounter procedure Yun Glover [facility] Start: 11-07-2023 End: 11-07-2023 ambulatory Yun Glover Facility:[facility] Start: 11-07-2023 End: 11-07-2023 ambulatory MD Yun Glover Work Phone: [facility] Work Phone: Start: 11-07-2023 End: 11-07-2023 Departed Referred MD Yun Glover Work Phone: [facility] [place] Work Phone: Start: 10-25-2023 End: 10-25-2023 ambulatory Yun Glover Other [employer] Other Start: 10-25-2023 Encounter for genera l adult medical examination without abnormal findings Yun Glover [facility] Start: 12-05-2023 Telephone encounter Yun Glover [facility] Start: 08-06-2023 Office outpatient vi sit 15 minutes Camila Mcdonald [facility] Start: 08-06-2023 End: 08-06-2023 ambulatory MD Yun Glover Work Phone: [employer] Other Start: 08-06-2023 End: 08-06-2023 Patient encounter procedure MD Yun Glover Work Phone: [facility] Work Phone: Start: 04-16-2023 End: 04-16-[address] YUN GLOVER Facility: Start: 03-06-[address] YUN GLOVER [facility] ity:H1 Start: 02-24-2023 (Televisit) Televisit Yun Glover [facility] Start: 02-24-2023 End: 02-24-2023 ambulatory Yun Glover Other [employer] Other Start: 02-07-2023 End: 02-08-2023 ambulatory Vishal WOODARD [place] [place]: 02-07-2023 End: 02-07-2023 Patient encounter procedure Vishal WOODARD [facility] Start: 12-10-2022 End: 12-11-2022 ambulatory Racheal Macias [place] [place]: 12-10-2022 End: 12-11-2022 ambulatory Racheal Macias Facility:[facility] Start: 12-10-2022 End: 12-10-2022 Patient encounter procedure Racheal Macias [facility] Start: 11-18-2022 End: 11-19-[address] YUN GLOVER Facility: Start: 05-10-2022 Adult health examination Nate Mcdonald Other [employer] Other Start: 05-10-2022 Gynecological examination normal Camila Mcdonald Other [employer] Other Start: 10-13-2021 End: 10-13-2021 ambulatory Babita Whitlock Other [employer] Other Start: 10-13-2021 Office outpatient vi sit 15 minutes Babita Whitlock [facility] Procedures Date Procedure Procedure Detail Performing Clinician Start: 08-06-2023 X-ray of left foot MD Justine Glover Work Phone: Start: 02-07-2023 Colonoscopy Vishal Fletcher Start: 08-31-2021 Endoscopy and biopsy of upper gastrointestinal tract Racheal Macais Start: 09-24-2019 Colonoscopy Racheal richardson Start: 03-16-2019 Screening for malign ant neoplasm of colon Camila Mcdonald Other Start: 12-25-2013 General examination of patient Camila Mcdonald Other Tonsillectomy Racheal Macias Plan of Treatment Date Care Activity Detail Author Start: 11-07-2023 [facility] Human papilloma viru s 16+18+31+33+35+39+45+51+52+56+58 +59+66+68 DNA [Presence] in Cervix by Probe with signal amplification [facility] Immunizations Immunization Date Immunization Notes Care Provider Fa cility 10-13-2022 influenza virus vaccine, split virus (incl. purified surface antigen) Camila Mcdonald Other [facility] Other 10-13-2022 influenza virus vaccine, unspecified formulation Racheal Macias [facility] 05-11-2022 COVID-19 Vaccine Pfi zer - Documentation Purposes Only Camila Mcdonald Other [facility] Other 05-11-2022 SARS-CoV-2 mRNA (cbtckvegqfr-ksyq-pjfcw se) vaccine Racheal Macias [facility] 10-30-2021 influenza virus vaccine, split virus (incl. purified surface antigen) Camila Tamara Other [facility] Other 10-30-2021 influenza virus vaccine, unspecified formulation Racheal Macias [facility] 10-12-2021 SARS-CoV-2 (COVID-19 ) mRNA-1273 vaccine Racheal Macias [facility] 01-28-2021 SARS-CoV-2 (COVID-19 ) Ad26 vaccine, recombinant Rachealjono Macias [facility] 10-06-2019 influenza virus vaccine, unspecified formulation Racheal Macias [facility] 10-06-2019 pneumococcal polysaccharide vaccine, 23 valent Racheal Macias [facility] 09-14-2018 influenza virus vaccine, split virus (incl. purified surface antigen) Camila Tamara Other [facility] Other 09-14-2018 influenza virus vaccine, unspecified formulation Racheal Macias [facility] 08-22-2012 tetanus and diphther ia toxoids, adsorbed, preservative free, for adult use (5 Lf of tetanus toxoid and 2 Lf of diphtheria toxoid) Camila Mcdonald Other [facility] Other Payers Date Payer Category Payer Self-pay [id number] 1958 Medicare [id number] 2.1 [id number] 1958 Private Health Insurance [id number] 1955 Unknown [id number] 2.16.8 [id number] 1955 Unknown [id number] 2.16.8 [id number] 1955 Unknown [id number] 2.16.8 [id number] 1955 Unknown [id number] 2.16.84 [id number] 1955 Unknown [id number] 2.16.84 [id number] Unknown [id number] 2.16.8 [id number] Unknown [id number] 2.16.8 [id number] Social History Date Type Detail Facility Unknown if ever smoked [facility] Other Sex Assigned At [facility] Start: 12-10-2022 Tobacco smoking status Ex-smoker (fi nding) [facility] Tobacco smoking status Never [facility] Start: 1955 Sex Assigned At Female F [facility] Functional Status Date Assessment Result Facility 02-07-2023 Functional Status N/A [facility] Clinical Notes 10-13-2021 to 11-16-2023 Note Date & Type Note Facility 11-16-2023 Evaluation note Encounter Date Diagnosis Assessment Notes Oct, GERD [Gastroesop hageal reflux disease] (ICD9-CM - 530.81) [facility] Other 12-18-2023 Evaluation note* Encounter Date Diagnosis Assessment Notes Treatment Notes Treatment Clinical Notes Oct, Medicare annual wellness visit, subsequent (ICD-10 - Z00.00) Personalized health advice was given to the beneficiary including a written plan for screenings discussed and provided. Advanced care planning reviewed and/or information given as requested. Additional counseling was provided here today in regards to, [ ]. The above visit was performed by [ ], under direct supervision of [ ]. Document reviewed and amended by provider signed below. Oct, Primary osteoarthritis of left foot (ICD-10 - M19.072) Discussed etiology, advised orthotics, Pt will call if she wants to go w a podiatry referral. Oct, Screening mammogram, encounter for (ICD-10 - Z12.31) Oct, Encounter for gynecological examination without abnormal finding (ICD-10 - Z01.419) Clinical impressions discussed. Monthly SBE advised along with yearly mammograms. Colon and osteoporosis screening reviewed and ordered if indicated (see preventative tab below). I will contact pt. with the results of her pap testing and arrange follow up based on the results. All questions answered to her satisfaction and patient sent home stable [facility] Other 12-05-2023 Evaluation note* Encounter Date Diagnosis Assessment Notes Treatment Notes Treatment Clinical Notes Oct, Wellness examination (ICD-10 - Z00.00) Oct, Mixed hyperlipidemia (ICD-10 - E78.2) [facility] Other 09-16-2023 Evaluation note* Encounter Date Diagnosis Assessment Notes Treatment Notes Treatment Clinical Notes Jul, Left foot pain (ICD-10 - M79.672) Jul, Primary osteoarthritis of left foot (ICD-10 - M19.072) Osteoarthritis home care material was printed Drink plenty of fluids, get plenty of rest. Take the Medrol Dosepak as prescribed until gone. Wear the Everette wrap for comfort and compression. Ice and elevate your foot 2-3 times a day you may continue to use the Voltaren cream as needed. Take Tylenol as needed for pain. Follow-up with your family physician if no improvement in 2 to 3 days [facility] Other 04-06-2023 Evaluation note* Encounter Date Diagnosis Assessment Notes Treatment Notes Treatment Clinical Notes Feb, COVID-19 (ICD-10 - U07.1) Instructed patient to isolate per CDC guidlines for 10 days from symptom onset. She may return to work after isolation period as long as symptoms are improving and has been afebrile for 24 hours without use of antipyretic. Advised patient that treatment of COVID is with viral supportive care. Instructed to use Capmist as needed for congestion and cough, she may also use OTC plain mucinex (no D or DM) and throat lozenges. Increase fluids and rest. Follow-up with PCP, referral placed. Immediate eval for SOB, difficulty, chest pain, fevers that do not break with antipyretic or any other concenring symptoms. Patient verbalizes understanding and is agreeable to treatment plan. Discussed time off re: work and trips for work that are coming up. [facility] Other 03-22-2023 Note [id number]:127[facility] 02-07-2023 Hospital Discharge instructions Patient Education 02/07/2023 13:45:47 Colonoscopy, Care After Surgery Salam (CUSTOM) Colonoscopy Care After Surgery Please read the instructions outlined below and refer to this sheet in the next few weeks. These discharge instructions provide you with general information on caring for yourself after you leave thespital. Your doctor may also give you specific instructions. While your treatment has been planned according to the most current medical practices available, unavoidable complications occasionally occur. If you have any problems or questions after discharge, please call your doctor. ACTIVITY You may resume your regular activity, but move at a slower pace for the next 24 hours. Take frequent rest periods for the next 24 hours. Walking will help get rid of the air and reduce the bloated feeling in your abdomen (belly). No driving for 24 hours (because of the anesthesia (medicine) used during the test). You may shower. Do not sign any important legal documents or operate any machinery for 24 hours (because of the anesthesia used during the test). NUTRITION Drink plenty of fluids. You may resume your normal diet as instructed by your doctor. Begin with a light meal and progress to your normal diet. Heavy or fried foods are harder to digestand may make you feel nauseated (sick to your stomach). Avoid alcoholic beverages for 24 hours or as instructed. MEDICATIONS You may resume your normal medications unless your doctor tells you otherwise. WHAT YOU CAN EXPECT TODAY Some feelings of bloating in the abdomen. Passage of more gas than usual. Spotting of blood in your stool or on the toilet paper. FOLLOW-UP Your doctor will discuss the results of your test with you. SEEK IMMEDIATE MEDICAL ATTENTION IF: There is more than a spotting of blood in your stool. There is abdominal distention (your abdomen is swollen). There is vomiting. You have a temperature over 101.5 F. There is abdominal pain or discomfort that is severe or gets worse throughout the day. 02/07/2023 13:45:47 Colon Polyps Colon Polyps Polyps are tissue growths inside the body. Polyps can grow in many places, including the large intestine (colon). A polyp may be a round bump or a mushroom-shaped growth. You could have one polyp or several. Most colon polyps are noncancerous (benign). However, some colon polyps can become cancerous over time. Finding and removing the polyps early can help prevent this. What are the causes? The exact cause of colon polyps is not known. What increases the risk? You are more likely to develop this condition if you: Have a family history of colon cancer or colon polyps. Are older than 50 or older than 45 if you are . Have inflammatory bowel disease, such as ulcerative colitis or Crohn's disease. Have certain hereditary conditions, such as: ?Familial adenomatous polyposis. ?Grullon syndrome. ?Turcot syndrome. ?Peutz Jeghers syndrome. Are overweight. Smoke cigarettes. Do not get enough exercise. Drink too much alcohol. Eat a diet that is high in fat and red meat and low in fiber. Had childhood cancer that was treated with abdominal radiation. What are the signs or symptoms? Most polyps do not cause symptoms. If you have symptoms, they may include: Blood coming from your rectum when having a bowel movement. Blood in your stool. The stool may look dark red or black. Abdominal pain. A change in bowel habits, such as constipation or diarrhea. How is this diagnosed? This condition is diagnosed with a colonoscopy. This is a procedure in which a lighted, flexible scope is inserted into the anus and then passed into the colon to examine the area. Polyps are sometimes found when a colonoscopy is done as part of routine cancer screening tests. How is this treated? Treatment for this condition involves removing any polyps that are found. Most polyps can be removed during a colonoscopy. Those polyps will then be tested for cancer. Additional treatment may be needed depending on the results of testing. Follow these instructions at home: Lifestyle Maintain a healthy weight, or lose weight if recommended by your health care provider. Exercise every day or as told by your health care provider. Do not use any products that contain nicotine or tobacco, such as cigarettes and e-cigarettes. If you need help quitting, ask your health care provider. If you drink alcohol, limit how much you have: ?0 1 drink a day for women. ? 0 2 drinks a day for men. Be aware of how much alcohol is in your drink. In the [place] one drink equals one 12 oz bottle of beer (355 mL), one 5 oz glass of wine (148 mL), or one 1 oz shot of hard liquor (44 mL). Eating and drinking Eat foods that are high in fiber, such as fruits, vegetables, and whole grains. Eat foods that are high in calcium and vitamin D, such as milk, cheese, yogurt, eggs, liver, fish, and broccoli. Limit foods that are high in fat, such as fried foods and desserts. Limit the amount of red meat and processed meat you eat, such as hot dogs, sausage, turpin, and lunch meats. General instructions Keep all follow-up visits as told by your health care provider. This is important. ?This includes having regularly scheduled colonoscopies. ?Talk to your health care provider about when you need a colonoscopy. Contact a health care provider if: You have new or worsening bleeding during a bowel movement. You have new or increased blood in your stool. You have a change in bowel habits. You lose weight for no known reason. Summary Polyps are tissue growths inside the body. Polyps can grow in many places, including the colon. Most colon polyps are noncancerous (benign), but some can become cancerous over time. This condition is diagnosed with a colonoscopy. Treatment for this condition involves removing any polyps that are found. Most polyps can be removed during a colonoscopy. This information is not intended to replace advice given to you by your health care provider. Make sure you discuss any questions you have with your health care provider. Document Released: 08/03/2005 Document Revised: 02/22/2019 Document Reviewed: 02/22/2019 [employer] Patient Education 2020 [employer]. 02/07/2023 13:45:47 Hemorrhoids, Ohfn-af-Xogy Hemorrhoids Hemorrhoids are swollen veins that may develop: In the butt (rectum). These are called internal hemorrhoids. Around the opening of the butt (anus). These are called external hemorrhoids. Hemorrhoids can cause pain, itching, or bleeding. Most of the time, they do not cause serious problems. They usually get better with diet changes, lifestyle changes, and other home treatments. What are the causes? This condition may be caused by: Having trouble pooping (constipation). Pushing hard (straining) to poop. Watery poop (diarrhea). . Being very overweight (obese). Sitting for long periods of time. Heavy lifting or other activity that causes you to strain. Anal sex. Riding a bike for a long period of time. What are the signs or symptoms? Symptoms of this condition include: Pain. Itching or soreness in the butt. Bleeding from the butt. Leaking poop. Swelling in the area. One or more lumps around the opening of your butt. How is this diagnosed? A doctor can often diagnose this condition by looking at the affected area. The doctor may also: Do an exam that involves feeling the area with a gloved hand (digital rectal exam). Examine the area inside your butt using a small tube (anoscope). Order blood tests. This may be done if you have lost a lot of blood. Have you get a test that involves looking inside the colon using a flexible tube with a camera on the end (sigmoidoscopy or colonoscopy). How is this treated? This condition can usually be treated at home. Your doctor may tell you to change what you eat, make lifestyle changes, or try home treatments. If these do not help, procedures can be done to remove the hemorrhoids or make them smaller. These may involve: Placing rubber bands at the base of the hemorrhoids to cut off their blood supply. Injecting medicine into the hemorrhoids to shrink them. Shining a type of light energy onto the hemorrhoids to cause them to fall off. Doing surgery to remove the hemorrhoids or cut off their blood supply. Follow these instructions at home: Eating and drinking Eat foods that have a lot of fiber in them. These include whole grains, beans, nuts, fruits, and vegetables. Ask your doctor about taking products that have added fiber (fibersupplements). Reduce the amount of fat in your diet. You can do this by: ?Eating low-fat dairy products. ?Eating less red meat. ?Avoiding processed foods. Drink enough fluid to keep your pee (urine) pale yellow. Managing pain and swelling Take a warm-water bath (sitz bath) for 20 minutes to ease pain. Do this 3 4 times a day. You may dothis in a bathtub or using a portable sitz bath that fits over the toilet. If told, put ice on the painful area. It may be helpful to use ice between your warm baths. ?Put ice in a plastic bag. ?Place a towel between your skin and the bag. ?Leave the ice on for 20 minutes, 2 3 times a day. General instructions Take qktk-vud-uqqszjf and prescription medicines only as told by your doctor. ?Medicated creams and medicines may be used as told. Exercise often. Ask your doctor how much and what kind of exercise is best for you. Go to the bathroom when you have the urge to poop. Do not wait. Avoid pushing too hard when you poop. Keep your butt dry and clean. Use wet toilet paper or moist towelettes after pooping. Do not sit on the toilet for a long time. Keep all follow-up visits as told by your doctor. This is important. Contact a doctor if you: Have pain and swelling that do not get better with treatment or medicine. Have trouble pooping. Cannot poop. Have pain or swelling outside the area of the hemorrhoids. Get help right away if you have: Bleeding that will not stop. Summary Hemorrhoids are swollen veins in the butt or around the opening of the butt. They can cause pain, itching, or bleeding. Eat foods that have a lot of fiber in them. These include whole grains, beans, nuts, fruits, and vegetables. Take a warm-water bath (sitz bath) for 20 minutes to ease pain. Do this 3 4 times a day. This information is not intended to replace advice given to you by your health care provider. Make sure you discuss any questions you have with your health care provider. Document Released: 08/16/2009 Document Revised: 11/15/2019 Document Reviewed: 03/29/2019 [employer] Patient Education 2019 [employer]. Follow Up Care 12/10/2022 15:05:12 With:Vishal WOODARD Address: [address] [place] [address] Business (1) When:1 to 2 weeks Comments:Call for any problems. Office will call to schedule follow up appointment. [facility]03-20-2023 Evaluation + Plan noteExtracted from: Title:ANES Post-operative Note - General Author: Ellis Prescott Jr., DO Date:02/07/23 Plan Transfer/Discharge: Transfer/Discharge Discharge when meets criteria ( From PACU to Ambulatory Surgery Unit, and To home ). Extracted from: Title:ANES Pre-operative Note - Endo Author:Ellis Santillan Jr., DO Date:02/07/23 Plan [place] [employer] Anesthesiologists (ASA) physical status classification: Class II. Anesthetic Preoperative Plan: Anesthesia General, and -TIVA. [facility]11-23-2021 Evaluation note* Encounter Date Diagnosis Assessment Notes Treatment Notes Treatment Clinical Notes Sep, Contact with and (suspected) exposure to other viral communicable diseases (ICD-10 - Z20.828) Today test was performed in office. Results are currently negative. That does not mean that you will not develop COVID or do not currently have a low viral count of COVID. The rapid test works best if symptoms have been over 72 hours and the results can vary if you are asymptomatic There is a higher chance of false negative results to occur if testing is performed too soon. It is recommended that even if results are negative and you have been exposed to someone that has COVID that you follow current CDC recommendations. These can be found at CDC.GOV. Follow up with primary care provider if symptoms persist or do not improve Sep, Seasonal allergic rhinitis, unspecified trigger (ICD-10 - J30.2) Take medication as directed. Use saline nasal spray may help with symptom relief. Follow up with primary care provider if symptoms persist as a therapy plan may need to be made. Sep, Other Additional time spent conducting pre-visit phone call, screening for symptoms, instructions on social distancing, application and removal of PPE, and cleaning of examination room, equipment and supplies was preformed. Patient education given for testing methodology and results. Patient care instructions given in writting by [facility] Care At Home document. [employer] [facility] [employer] Other Evaluation + Plan note Future Appointments Appointment Date:02/07/2023 01:30:00 PM Scheduled Provider: Location:[facility] Appointment Type:[facility]gery [facility] noteNo assessment information available [facility] Work Phone: evaluation noteNo InformationNortBerwick Hospital Center [employer] Other History general Narrative - Reported* Type Description Date Medical History Hyperlipidemia Medical History Acid reflux Surgical History hip surgery as a child [facility] [employer] Other Hisggrq general Narrative - Reported* Type Description Date Medical History Hyperlipidemia Medical History Acid reflux Medical History Arthritis Surgical History hip surgery as a child [facility] [employer] Other Hospital course Narrative No data available for this section [facility] No data available for this section [facility] No data available for this section [facility] Summary Purpose Family History No Family History Records FoundNo Family History Records FoundNo Family History Records Found Advance Directives Advance Directive Response Recorded Date/ Time Advance Directives No May 26 2 7:24pm Advance Directive Response Recorded Date/ Time Advance Directives No May 26 2 6:24pm Additional Source Comments REASON FOR VISIT (unrecogniz ed section and content) #6 BLACK EQUINOX, SINUS X 2 DAYS, COVID Provider VisitCOVID Positive- [phone] FOOT ON TOP, THROBBING PAINmessagewellnessRefilllabs Patient Care team informatio n (unrecognized section and content) Team Status: Active Member Role Status Dates Yun Glover MD Primary Care Provider Active Team Status: Inactive Member Role Status Dates Yun Glover MD Primary Care Provider Active GOLDY Almaraz Attending Provider Active Team Status: Inactive Member Role Status Dates Yun Glover MD Attending Provider Active INFORMATION SOURCE (unrecogn ized section and content) DATE CREATED AUTHOR 02/25/20[address] Lex Edmonds [facility] DATE CREATED AUTHOR AUTHOR'S ORGANIZ ATION 04/29/2023 [facility] DATE CREATED AUTHOR AUTHOR'S ORGANIZ ATION 11/11/2023 [facility] Goals (unrecognized section and content) Goals may be documented in a n alternate section FOR RECORDS PERTAINING TO PATIENTS WHO ARE OR HAVE BEEN ENROLLED IN A CHEMICAL DEPENDENCY/SUBSTANCEABUSE PROGRAM, SOME INFORMATION MAY BE OMITTED. This clinical summary was aggregated from multiple sources. Caution should be exercised in using it in the provision of clinical care. This summary normalizes information from multiple sources, and as a consequence, information in this document may materially change the coding, format and clinical context of patient data. In addition, data may be omitted in some cases. CLINICAL DECISIONS SHOULD BE BASED ON THE PRIMARY CLINICAL RECORDS. [employer] provides no warranty or guarantee of the accuracy or completeness of information in this document.
== END 2023-12-09 07:29 | disposition home or self-care (01) ==
LOC: MAMMO 07:28
PROVIDERS: PCP Family Medicine; Visit Provider Family Medicine
DX: Z12.31 Encounter for screening mammogram for malignant neoplasm of breast (principal); Z80.8 Family history of malignant neoplasm of other organs or systems; Z80.3 Family history of malignant neoplasm of breast; Z80.0 Family history of malignant neoplasm of digestive organs
CPT/HCPCS: 77063; 77067

== ENCOUNTER 2025-03-15 07:01 | Outpatient (OUT) | payer MEDICARE, SELFPAY ==
--- NOTE | 2025-03-15 07:03 | MM_ITS ---
Patient Name: JUANITA STOKES MR#: [id number] : 1955 Exam Date: 03/15/2025 Ordering Doctor: DR Yun Belcher M.D. RADIOLOGY REPORT PROCEDURE: MM TOMOSYNTHESIS SCREENING BI COMPARISON: MM TOMOSYNTHESIS SCREENING BI, 12/09/2023. MG MAMM SCREEN 3D FERD CAD, 11/18/2022. MG MAMM SCREEN 3D FRED CAD, 11/10/2021. MG MAMM FRED SCRN W CAD DIG, 01/10/2014. INDICATIONS: Screening Calculator Name NCI Breast Cancer Risk Assessment Tool 5 Year Breast Cancer Risk 3.20% Lifetime Breast Cancer Risk 10.10% Personal Breast Cancer No Personal Ovarian Cancer No Treatments None Family Cancers Father with skin cancer at age ~70; Sister with breast cancer at age 38; Uncle-paternal with colon cancer at age 86. LOCATION: [facility] BREAST COMPOSITION: There are scattered areas of fibroglandular density. FINDINGS: DIAGNOSTIC CATEGORY 1--NEGATIVE. LEFT BREAST: No significant suspicious finding. RIGHT BREAST: No significant suspicious finding. RECOMMENDATIONS: ROUTINE MAMMOGRAM AND CLINICAL EVALUATION IN 12 MONTHS. PLEASE NOTE: A NORMAL MAMMOGRAM DOES NOT EXCLUDE THE POSSIBILITY OF BREAST CANCER. A CLINICALLY SUSPICIOUS PALPABLE LUMP SHOULD BE BIOPSIED. Dictated by: Jac Landrum DO on 03/15/2025 at 14:17 Approved by: Jac Landrum DO on 03/15/2025 at 14:27
== END 2025-03-15 07:02 | disposition home or self-care (01) ==
LOC: MAMMO 07:01
PROVIDERS: PCP Family Medicine; Visit Provider Family Medicine
DX: Z12.31 Encounter for screening mammogram for malignant neoplasm of breast (principal); Z80.3 Family history of malignant neoplasm of breast; Z80.0 Family history of malignant neoplasm of digestive organs; Z80.8 Family history of malignant neoplasm of other organs or systems
CPT/HCPCS: 77063; 77067

== ENCOUNTER 2025-11-09 06:53 | Outpatient (OUT) | payer MEDICARE, SELFPAY ==
--- OUTSIDE RECORDS SUMMARY | 2025-10-31 19:39 | XMS_ITS | Continuity of Care Document ---
Author Organization [facility] Address [address] [place] [address] Phone Care Team Providers Care Truck Striker Name Role Phone Yun Belcher MD Primary Care Provider Yun Belcher MD Attending Provider [phone] Care Teams Visit Care Team Team Status: Inactive Member Role/Relationship Status Dates Yun Belcher MD Primary Care Provider Active Start: October 31, 2025 End: October 31, 2025Yun Belcher MDAttending ProviderActiveStart: October 31, 2025 End: October 31, 2025 Patient Care Team Team Status: Inactive Member Role/Relationship Status Dates Yun Belcher MD Attending Provider Active St art: October 31, 2025 End: October 31, 2025 Chief Complaint and Reason for Visit Chief Complaint Admit Date Wellness/PAP October 31, 2025 8:29am Reason for Visit Admit Date Benign hypertension October 31, 2025 8:29am Hyperlipidemia October 31, 2025 8:29am Pain in metatarsus, bilateral October 212024 8:29am Sprain of carpometacarpal (CMC) joint of left hand October 31, 2025 8:29am Wellness examination October 31, 2025 8:29am Reason for Referral Type Reason(s) Provider Provider Contact Information P rovider Address Start Date Sprain of carpometacarpal (CMC) joint of left hand S63.8X2A - Sprain of other part of left wrist and hand, initial encounterPain in metatarsus of both feet M89.8X7 - Other specified disorders of bone, ankle and footS63.8X2A - Sprain of other part of left wrist and hand, initial encounterFPG [place] OrthopedicsWork Phone: [phone] [place] [address]Dqbiiwnb 2024M89.8X7 - Other specified disorders of bone, ankle and footCourtlanderBryn Mawr Rehabilitation Hospital 2024 Allergies, Adverse Reactions, Alerts Allergen Type Severity Reaction Last Updated Verified Status No Known Allergies Allergy Unknown October 31, 2025 8:41amYesActive Social History Smoking Status Status Start Date End Date Date of Observa tion Ex-smoker (finding) June 10, 2024 11:42am Observation Status Observation Response Date of Response Legal Sex Female (finding) Sex Assigned At BirthFemaleJuly 1954 Family History Relationship Condition Age at Onset Recorded Date/T mary ann father Unknown motherFamily history of mental disorderUnknown Problems Active Problems Problem Diagnosis/Recorded Date Onset Date Stat us Sprain of carpometacarpal (C MC) joint of left hand October 31, 2025 10:39am Unknown Active Benign hypertension October 31, 2025 10:37am Unknow n Active Wellness examination October 25, 2025 2:03pm Unknown Active Hyperlipidemia June 10, 2024 10:33am Unknown Ac tive Pain in metatarsus, bilateral October 31, 2025 10:4 0am Unknown Active Gastro-esophageal reflux dis ease without esophagitis June 10, 2024 10:33am Unknown Active Allergic rhinitis March 27, 2025 6:05pm Unknown Ac tive Inactive/Resolved Problems Problem Diagnosis/Recorded Date Onset Date Stat us Sinusitis, acute maxillary October 15, 2024 11:28am Unknown Resolved Acute viral laryngitis June 10, 2024 11:33am Unknown Resolved Post-nasal drainage December 18, 2024 9:16am Unknown Resolved Chronic cough January 02, 2025 8:24am Unknown Resolved Medications Medication Status Dose Units Route Directions Qty Days Refills S tart Date Stop Date End Date Reason(s) Instructions Adherence Pantoprazole 40 mg tablet,delayed release (DR/EC) Discontinued 4 0 MG PO Daily 90 1February 2023 12:00amJune 2023 10:34amMeloxicam 15 mg tablet Discontinued0.ROUTE.UILRCNE150Zyqjr 2023 9:04amJune 2023 10:34amTAKE 1 TABLET BY MOUTH EVERY DAY FOR 30 DAYSAtorvastatin 20 mg tabletDiscontinued0 .ROUTE.UVKYZAX160Sab2023 11:40amMay 2024 10:40amTAKE 1 TABLET BY MOUTH EVERY DAYMeloxicam 15 mg tabletDiscontinued0.ROUTE.BTGLIFY731Lxzu 24th, 2024 10:34amJuly 2023 9:00amTAKE 1 TABLET BY MOUTH EVERY DAY FOR 30 DAYS Pantoprazole 40 mg tablet,delayed release (DR/EC)Discontinued0.ROUTE.EWZCCGR851 May 14, 2024 10:34amMarch 2024 1:05pmTAKE 1 TABLET BY MOUTH EVERY DAY Meloxicam 15 mg tabletDiscontinued0.ROUTE.WXFPDST181OmvdJune 18, 2024 9:00am September 14, 2024 8:09pmTAKE 1 TABLET BY MOUTH EVERY DAY FOR 30 DAYSMeloxicam 15 mg tabletDiscontinued0.ROUTE.COBFRUJ769Uzuxdnv 25th, 2024 8:09pmNovember 2023 10:31amTAKE 1 TABLET BY MOUTH EVERY DAY FOR 30 DAYSMeloxicam 15 mg tabletDiscontinued0.ROUTE.FBVHOPN812NotejemzOctober 16, 2024 10:31amDecember 2023 8:02amTAKE 1 TABLET BY MOUTH EVERY DAY FOR 30 DAYSMeloxicam 15 mg tablet Discontinued0.ROUTE.ZYXGAJP514HcopflntNovember 16, 2024 8:02amMarch 2024 1:35pm TAKE 1 TABLET BY MOUTH EVERY DAY FOR 30 DAYSPantoprazole 40 mg tablet,delayed release (DR/EC)Discontinued0.ROUTE.BBBELBI721AyswvJanuary 28, 2025 1:05pmSeptember 2024 7:43amTAKE 1 TABLET BY MOUTH EVERY DAYMeloxicam 15 mg tablet Discontinued0.ROUTE.GCYOVPV467CgxorFebruary 07, 2025 1:35pmJuly 2024 8:06amTAKE 1 TABLET BY MOUTH EVERY DAY FOR 30 DAYSAtorvastatin 20 mg tabletActive0.ROUTE .ABFVSCR338Aae2024 10:40amTAKE 1 TABLET BY MOUTH EVERY DAYUnknownMeloxicam 15 mg tabletDiscontinued0.ROUTE.SFVCVHA828PefxJune 07, 2025 8:06amOctober 2024 11:53amTAKE 1 TABLET BY MOUTH EVERY DAY FOR 30 DAYSPantoprazole 40 mg tablet,delayed release (DR/EC)Active0.ROUTE.ABEPHKV548Upxsffvpp 2024 7:43am TAKE 1 TABLET BY MOUTH EVERY DAYUnknownMeloxicam 15 mg tabletActive0.ROUTE .OISCOKT475Rrykwid 2024 11:53amTAKE 1 TABLET BY MOUTH EVERY DAYUnknown Cholecalciferol (Vitamin D3) 25 mcg (1,000 unit) tpkgbiTpaxebghhwjp70ZKSJXCcjne February 05, 2024 11:00pmJuly 2023 10:40amOmeprazole 20 mg capsule,delayed release(DR/EC)Dkfuacziovzd51PVJOSycleTzyxp 2023 11:00pmJuly 2023 10:40amAspirin 81 mg tablet,delayed release (DR/EC)Wbbwhldsrfzz56UQTHUijhcFvhhu 2023 11:00pmJuly 2023 10:40amMeloxicam 15 mg bksmgmPivvqoxjahyv87XP PODailyMarch 2023 11:00pmMarch 2023 9:04amAtorvastatin 20 mg tablet Adrmyswlagwx35NOYCVswcxNrlny 2023 11:00pmMay 2023 11:40amGuaifenesin (Mucinex) 600 mg tablet extended release 21okDqalgalkgqmp710GNDMSahnp dailyJuly 2023 11:00pmNovember 2023 8:38amCalcium Carbonate 500 mg calcium (1,250 mg) biekpqDjelms141IYQZSotsrRkbmcrij 2024 12:00amUnknownLoratadine (Allergy Relief (Loratadine)) 10 mg phoomtRamwoe27FAZUWrbdqEsganyjb 2024 12:00amUnknownFluticasone Propionate (Flonase Allergy Relief) 50 mcg/actuation spray,pqubkgwibmPklldn9YFQHHLKTNQDNWUUHoodlYcrhwnhx 2024 12:00amadminister into each nostrilUnknownLosartan 25 mg fxpuiyPvdmdu65QIJFNuygt253Mvwucked 2024 12:00amUnknownCefdinir 300 mg swjdzctUoimfcmncfft674QIWTVzaix ufsya074 October 15, 2024 12:00amJanuary 2024 8:43amBenzonatate 200 mg capsule Qfskncwrhnok267TGZD8-2 TIMES PER DAY as needed for ttore773JbyvakagOctober 15, 2024 12:00amJanuary 2024 8:42amCoenzyme Q10 (Co Q-10) 10 mg uwblglrCilgkk89CDCY DailyMarch 26, 2025 11:00pmUnknown Immunizations Immunization Event Date Not Given Reason Dose Number Sales Architect Lot Number Reason(s) Given Vaccine Information Statement (VIS) Detail Administration Location COVID-19 mRNA, Comirnaty (Oasys Mobile) May 11 influenza, unspecified formulationOctober 2017influenza, unspecified formulationDecember 2020influenza, unspecified formulationNovember 2021Tetanus, Diphtheria adult, 5 Lf pres free absOctober 2011 Vital Signs Vital Reading Result Reference Range Collection Date/Time Height 67 [in_i] October 31, 2025 8:79pmFhcxir44.25 kgDecember 2024 8:36amHeart Rate57 /jji83-101Qwghzhsz 11th, 2025 8:52amBP Snjwsbfe961 mm[Hg]100-140Decemb2024 8:52amBP Ztmybugry59 mm[Hg]60-100December 2024 8:52amBMI (Body Mass Index)32.8 kg/l7Uejnwupt2024 8:36am Advance Directives Advance Directive Response Recorded Date/ Time Advance Directives No May 26 6:24pm Insurance Providers Guarantor Sharyn Oneil Address [address] [address]Nsxffet Info.Home Phone: Coverage Status Update:2024 Payer Group Member ID Coverage Type Subscriber Relationship to Subscriber Effective Date Expiration Date Medicare Zina [id number] Noe Id: [id number] [address] [place] [place] [address] Home Phone: [facility] Claims Zina Hernandez Id: [id number] [id number] Noe Id: [id number] [facility] [place] [address] Home Phone: Self Encounters Encounter Location(s) Arrival/Admit Date Discharge/Departure Date Discharge/Departure Disposition Provider(s) Departed Physician/ Provider Office Visit -[facility] October 31, 2025 8:29am October 31, 2025 9:30am Discharged to home care or self care (routine discharge) Yun Belcher MD Departed Referred -[facility] October 31, 2025 8:53am October 31, 2025 8:54am Discharged to home care or self care (routine discharge) Yun Belcher MD Recent Diagnosis Onset Date Admit Date Benign hypertension Unknown October 8:29am Hyperlipidemia Unknown October 31 8:29am Pain in metatarsus, bilateral Unknown De cember 2024 8:29am Sprain of carpometacarpal (C MC) joint of left hand Unknown October 31, 2025 8:29am Wellness examination Unknown October 312024 8:29am Assessments Diagnosis Onset Date Resolution Status Admit Date Benign hypertension acuteDece2024 8:29amHyperlipidemiaacuteDecember 2024 8:29amPain in metatarsus, bilateralacuteDece2024 8:29amSprain of carpometacarpal (CMC) joint of left handacuteDece2024 8:29amWellness examinationacuteDece2024 8:29am Plan of Treatment Future Tests Future scheduled test information is unavailable Pending Tests Test Name Ordered Date Scheduled Date IG Pap w/Ct-Ng & HPV (Off-Site) October 31 025 8:53am Human Papillomavirus High RiskDe2024 8:53amHPV Low Volume Reflex October 31, 2025 8:53amHPV Genotype SourceDece2024 8:53amChlamydia trachomatis (LUIS) (LAB)October 31, 2025 8:53amNeisseria gonorrhoeae (LUIS) (LAB)October 31, 2025 8:53am Future Visits Future appointment information is unavailable Future Procedures Procedure Name Ordered Date Scheduled Date Pap IG, CtNg, rfx HPV Aptima October 31, 2025 8:53am October 31, 2025 8:53am Future Medications Future medication information is unavailable Patient Instructions Patient instructions are unavailable
--- OUTSIDE RECORDS SUMMARY | 2025-11-09 06:58 | XMS_ITS | Clinical Summary ---
Author Organization [facility] Address [address] [facility] [place] [address] Care Team Providers Care Swatcher Name Role Phone Unavailable Primary Care Provider Unavailabl e Social History Tobacco UseTypesPacks/DayYears UsedDateSmoking Tobacco: Never Assessed CommentsUnknownSex and Gender InformationValueDate RecordedSex Assigned at Not on fileLegal UfhCaugom62/15/2023 6:41 PM EDTGender IdentityNot on fileSexual OrientationNot on file Last Filed Vital Signs Vital SignReadingTime TakenCommentsBlood Xqaohywp435/8007 12:00 PM EDT Pulse--Temperature--Respiratory Rate--Oxygen Saturation--Inhaled Oxygen Concentration--Saunlu99.7 kg (200 lb)06/10/2020 12:00 PM SVSKdazbj439.2 cm (5' 7 )06/10/2020 12:00 PM EDTBody Mass Index31.32006/10/2020 12:00 PM EDT Plan of Treatment Not on file
[2025-11-09 07:51] LABS: Alanine Aminotransferase 24 U/L (14-59); Albumin Globulin Ratio 1.1; Albumin Level 3.6 g/dL (3.4-5.0); Alkaline Phosphatase 92 U/L (46-116); Anion Gap 11.7; Aspartate Amino Transferase 17 U/L (15-37); Blood Urea Nitrogen 16.0 mg/dL (7.0-18.0); Calcium 9.0 mg/dL (8.5-10.1); Carbon Dioxide 30.3 mmol/L (21.0-32.0); Chloride 107 mmol/L (98-107); Cholesterol 186 mg/dL (<=200); Estimated GFR (African America >60 (>=60 mL/min/1.73m^2); Estimated GFR (Non-African Ame 58 (>=60 mL/min/1.73m^2); Globulin 3.2 g/dL; Glucose 92 mg/dL (74-106); HDL Cholesterol 64 mg/dL (40-60); Potassium 4.0 mmol/L (3.5-5.1); Sodium 145 mmol/L (136-145); Total Protein 6.8 g/dL (6.4-8.2); Triglycerides 79 mg/dL (<=150); VLDL CHOLESTEROL 15.8 mg/dL
[2025-11-09 08:04] LABS: Hematocrit 42.7 % (36.0-48.0); Hemoglobin 13.2 g/dL (12.0-16.0); Immature Granulocytes Abs Auto 0.02 10^3/uL (0.00-0.03); Immature Granulocytes Pct Auto 0.3 % (0.0-0.5); Lymphocytes Absolute Auto 2.6 10^3/uL (1.2-3.8); Mean Corpuscular HGB Conc 30.9 g/dL (29.9-35.2); Mean Corpuscular Hemoglobin 27.7 pg (26.7-34.0); Mean Corpuscular Volume 89.7 fL (81.0-99.0); Platelet Count 362 10^3/uL (150-450); Red Blood Count 4.76 10^6/uL (4.20-5.40); White Blood Count 6.7 10^3/uL (4.0-11.0)
== END 2025-11-09 06:54 | disposition home or self-care (01) ==
LOC: LAB 06:55
PROVIDERS: PCP Family Medicine; Visit Provider Family Medicine
DX: Z00.00 Encounter for general adult medical examination without abnormal findings (principal); E78.5 Hyperlipidemia, unspecified
CPT/HCPCS: 36415; 80053; 80061; 85025

== ENCOUNTER 2025-11-18 08:59 | Outpatient (OUT) | payer MEDICARE, SELFPAY ==
--- NOTE | 2025-11-18 | XR_ITS ---
The [address] [address] Patient Name: JUANITA STOKES MRN: [id number] date: 1955 Sex: F Assigned Patient Location: [facility] Current Patient Location: [facility] Accession/Order Number: [id number] Exam Date: 11/18/2025 09:42 Report Date: 11/18/2025 11:01 At the request of: SAVAGE AMBROSE DO Procedure: XR wrist LT min 3V LEFT WRIST - 4 views COMPARISON: None CLINICAL DATA: Chronic left wrist pain laterally radiating to the thumb. No injury. AP, lateral, oblique and ulnar deviation views were obtained. There is osteopenia. No acute fracture or dislocation is seen. There is narrowing of the first carpal metacarpal joint with subchondral sclerosis and cystic change as well as minor hypertrophy. There are some additional cystic changes at the scaphoid and capitate. No soft tissue swelling is noted. XR/XR wrist LT min 3V IMPRESSION: OSTEOPENIA. DEGENERATIVE CHANGE AT THE FIRST CARPAL METACARPAL JOINT. Impression dictated by: Alba Vaughan M.D. 11/18/2025 11:01 AM Dictation Location: [employer]ri[employer]vi Electronically authenticated by: [id number] Y Date: 11/18/2025 11:01
--- OUTSIDE RECORDS SUMMARY | 2025-11-18 09:02 | XMS_ITS | Clinical Summary ---
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 Name Role Phone Unavailable Primary Care Provider Unavailabl e Social History Tobacco UseTypesPacks/DayYears UsedDateSmoking Tobacco: Never Assessed CommentsUnknownSex and Gender InformationValueDate RecordedSex Assigned at Not on fileLegal SoeLogngb79/15/2023 6:41 PM EDTGender IdentityNot on fileSexual OrientationNot on file Last Filed Vital Signs Vital SignReadingTime TakenCommentsBlood Mwajbuql455/8007 12:00 PM EDT Pulse--Temperature--Respiratory Rate--Oxygen Saturation--Inhaled Oxygen Concentration--Torqas46.7 kg (200 lb)06/10/2020 12:00 PM GDOFclvhb392.2 cm (5' 7 )06/10/2020 12:00 PM EDTBody Mass Index31.32006/10/2020 12:00 PM EDT Plan of Treatment Not on file
--- OUTSIDE RECORDS SUMMARY | 2025-11-18 09:05 | XMS_ITS | CCD ---
Author Organization [facility] Care Team Providers Care Dressmaking Teacher Name Role Phone KamleshCabreraie Unavailable YUN GLOVER Primary Care Physician [phone] Vishal WOODARD Attending Unavailable Vishal WOODARD Referring Unavailable Vishal WOODARD Admitting Unavailable Racheal Macias Admitting Unavailable Racheal Macias Attending Unavailable Racheal Macias Attending Unavailable Yun Glover Unavailable DR YUN GLOVER Primary Care Unavailable DIAB ., PAYAM Admitting Unavailable DIAB ., PAYAM Consulting Unavailable JEIMY ., PAYAM Attending Unavailable ADALBERTO, DR YUN Tijerina Primary Care Unavailable ADALBERTO, DR YUN Tijerina Primary Care Unavailable ADALBERTO, DR YUN Tijerina Attending Unavailable [place], DR SOLOMON Byrne Consulting Unavailable ADALBERTO, DR YUN Tijerina Admitting Unavailable ADALBERTO, DR YUN Tijerina Consulting Unavailable Camila Mcdonald Unavailable MD Yun Glover Primary Care Provider GOLDY Mcdonald Attending Provider MD Yun Glover Attending Provider Yun Glover Attending Unavailable Yun Glover Admitting Unavailable Camila Mcdonald Attending Unavailable Camila Mcdonald Admitting Unavailable Yun Glover Primary Care Unavailable Allergies Allergy ClassificationReported Allergen(s)Allergy TypeDate of OnsetReaction(s) Facility (5 sources)patient allergy list reviewed by nurse or physiciaPropensity to adverse xwlviwcqv44-83-8441Kgnaslr:[facility] Other (5 sources)Allergies ReconciledPropensity to adverse reactionsCommunity [facility] Other Medications Current Medications MedicationDrug Class(es)DatesSig (Normalized)Sig (Original)Aspir-81 81 MG (7 sources)take 1 tablet by mouth once dailyAspir-81 81 MG 1 tablet Orally Once a day Activeatorvastatin 20 mg oral tablet (16 sources)HMG-CoA Reductase InhibitorStart: 04-02-2024 End: 47-61-7243fgiz 1 tablet by mouth once dailyAtorvastatin 20 mg tablet Active 0 .ROUTE .COMPLEX 90 March 25, 2025 11:40am TAKE 1 TABLET BY MOUTH EVERY DAY Start: 02-06-2024 End: 81-59-0412tetp 2 tablets by mouth once dailyAtorvastatin 20 mg tablet Discontinued 40 MG PO Daily February 06, 2024 12:00am April 02, 2024 12:40pm Start: 02-06-2024 End: 40-97-5367riyc 40 mg by mouth once dailyAtorvastatin Discontinued 40 MG PO Daily February 06, 2024 12:00am April 02, 2024 12:40pmStart: 94-16-4415smts 1 tablet by mouth once daily at bedtimeLipitor 10 mg Tab 10 mg = 1 tab(s), Oral, Once a day (at bedtime), Refills(s) 0, High cholesterol Start Date: 02/15/13 Status: Orderedtake 1 tablet by mouth once dailyAtorvastatin Calcium 20 MG TAKE 1 TABLET BY MOUTH EVERY DAY for 90 ActiveAtorvastatin Calcium Activecalcium carbonate 1250 mg oral tablet (4 sources)take 1 tablet by mouth every twelve hoursCalcium 500 MG 1 tablet with meals Orally Twice a day Activefamotidine 20 mg oral tablet (2 sources)Histamine-2 Receptor AntagonistStart: 12-10-2022 End: 94-92-5186oeww 1 tablet by mouth once daily at bedtimePepcid 20 mg Tab 20 mg = 1 tab(s), Oral, Once a day (at bedtime), X 90 day(s), # 90 tab(s), Refills( s) 0, Pharmacy: [facility]/pharmacy #[id number], 169, cm, 12/10/22 14:03:00 EST, Height/Length Dosing, 92.2, kg,12/10/22 14:03:00 EST, Weight Dosing Start Date: 12/10/22 Stop Date: 03/10/23 Status: Orderedmagnesium sulfate 225 MG / potassium chloride 188 MG / sodium sulfate 1479 MG Oral Tablet [Sutab] (1 source)Start: 15-15-2416mtao 1 tablet by mouth onceSutab oral tablet See Instructions, 1 EA, Refill(s) 0, BOB, Please follow instructions per packaging and physician's handout, [facility]/pharmacy #[id number], 169, cm, 12/10/22 14:03:00 EST, Height/Length Dosing,92.2, kg, 12/10/22 14:03:00 EST, Weight Dosing Start Date: 12/10/22 Status: Orderedmeloxicam 15 mg oral tablet (20 sources)Nonsteroidal Anti-inflammatory DrugStart: 02-06-2024 End: 47-96-8706ykel 1 tablet by mouth once dailyMeloxicam 15 mg tablet Active 0 .ROUTE .COMPLEX February 07, 2025 2:35pm TAKE 1 TABLET BY MOUTH EVERY DAY FOR 30 DAYSStart: 02-06-2024 End: 46-36-7081fafn 1 tablet by mouth once dailyMeloxicam 15 mg tablet Discontinued 15 MG PO Daily February 06, 2024 12:00am February 06, 2024 10:04am take 1 tablet by mouth every twenty-four hoursMeloxicam 15 MG 1 tablet Orally Once a day for 30 days ActivemethylPREDNISolone 4 mg oral tablet (2 sources)CorticosteroidStart: 64-74-0939Jlwddg 4 MG as directed Orally As Directed for 6 days Jul, Activemontelukast 10 mg oral tablet (2 sources)Leukotriene Receptor AntagonistStart: 54-55-9764boya 10 mg by mouth once dailymontelukast 10 mg, Oral, Daily, Refills(s) 0, Allergy symptoms Start Date: 07/15/21 Status: Orderedpantoprazole 40 mg delayed release oral tablet (11 sources)Proton Pump InhibitorStart: 05-14-2024 End: 61-66-6456cfju 1 tablet by mouth once dailyPantoprazole 40 mg tablet,delayed release (DR/EC) Active 0 .ROUTE .COMPLEX January 28, 2025 2:05pm TAKE 1 TABLET BY MOUTH EVERY DAYStart: 01-09-2024 End: 97-32-7225peya 1 tablet by mouth once dailyPantoprazole 40 mg tablet,delayed release (DR/EC) Discontinued 40 MG PO Daily January 09, 2024 1:00am May 14, 2024 11:34amStart: 12-10-2022 End: 53-67-9266zlmt 1 tablet by mouth once dailyPantoprazole [address] Tab 40 mg = 1 tab(s), Oral, Daily, X 90 day(s), # 90 tab(s), Refills(s) 2, Pharmacy: [facility]/pharmacy #[id number], 169, cm, 12/10/22 14:03:00 EST, Height/Length Dosing, 92.2, kg, 12/10/2313:03:00 EST, Weight Dosing Start Date: 12/10/22 Stop Date: 09/06/23 Status: Orderedubidecarenone 10 mg oral capsule (1 source)Start: 12-84-2494Iakybnbs Q10 (Co Q-10) 10 mg capsule Active 10 MG PO Daily March 27, 2025 12:00am Completed/Discontinued Medications MedicationDrug Class(es)DatesSig (Normalized)Sig (Original)aspirin 81 mg delayed release oral tablet (5 sources)Platelet Aggregation Inhibitor, Nonsteroidal Anti-inflammatory Drug Start: 02-06-2024 End: 09-99-6020jsfz 1 tablet by mouth once dailyAspirin 81 mg tablet,delayed release (DR/EC) Discontinued 81 MG PO Daily February 06, 2024 12:00am June 10, 2024 11:40amStart: 82-56-3317gqrj 1 tablet by mouth once dailyaspirin 81 mg oral tablet 81 mg = 1 tab(s), Oral, Daily, Refills(s) 0, Prophylaxis Start Date: 02/15/13 Status: Orderedbenzonatate 200 mg oral capsule (2 sources)Non-narcotic AntitussiveStart: 10-15-2024 End: 25-50-9907Oqkgtltwfil 200 mg capsule Discontinued 200 MG PO 2-3 TIMES PER DAY as needed for cough 2023 1:00am December 18, 2024 9:42am cefdinir 300 mg oral capsule (2 sources)Cephalosporin AntibacterialStart: 10-15-2024 End: 42-18-4737tzdx 1 capsule by mouth twice dailyCefdinir 300 mg capsule Discontinued 300 MG PO Twice daily October 15, 2024 1:00am December 18, 2024 9:43amcholecalciferol 0.025 mg oral tablet (3 sources)Vitamin DStart: 02-06-2024 End: 97-11-0765vpyk 1 tablet by mouth once dailyCholecalciferol (Vitamin D3) 25 mcg (1,000 unit) tablet Discontinued 25 MCG PO Daily February 06, 2024 12:00am June 10, 2024 11:40amDocusate (7 sources)Doculase Not-Taking/PRNDoculase Not-TakingDoculase Kmqavg75 hr guaiFENesin 600 mg extended release oral tablet (3 sources)Start: 06-10-2024 End: 30-05-6486fzfx 1 tablet by mouth twice daily, then take 1 tablet by mouth every twelve hoursGuaifenesin (Mucinex) 600 mg tablet extended release 12hr Discontinued 600 MG PO Twice daily June 10, 2024 12:00am October 15, 2024 9:38amomeprazole 20 mg delayed release oral capsule (10 sources)Proton Pump InhibitorStart: 02-06-2024 End: 26-65-3952jtue 1 capsule by mouth once dailyOmeprazole 20 mg capsule,delayed release(DR/EC) Discontinued 20 MG PO Daily February 06, 2024 12:00am June 10, 2024 11:40amtake 1 capsule by mouth once dailyPriLOSEC 20 MG 1 capsule Orally Once a day Activepaxlovid (300/100) 20 x 150 mg & 10 x 100mg tablet therapy pack (3 sources)Start: 60-12-6283kqdz 3 tablets by mouth every twelve hoursPaxlovid (300/100) 20 x 150 MG & 10 x 100MG 3 tablets Orally Twice a day for 5 days Feb, Not-Taking/PRNtriamcinolone acetonide 40 mg/ml injectable suspension (6 sources)CorticosteroidStart: 55-63-5599Jlnoaal-40 May, 40 mgVitamin D 1000 UNIT (7 sources)take 1 tablet by mouth once daily as neededVitamin D 1000 UNIT 1 tablet Orally Once a day Not-Taking/PRNtake 1 tablet by mouth once dailyVitamin D 1000 UNIT 1 tablet Orally Once a day Not-Takingtake 1 tablet by mouth once dailyVitamin D 1000 UNIT 1 tablet Orally Once a day Active{20 (nirmatrelvir 150 MG Oral Tablet) / 10 (ritonavir 100 MG Oral Tablet) } Pack [Paxlovid 5-Day] (3 sources)Start: 69-58-0608etcn 3 tablets by mouth every twelve hoursPaxlovid (300/100) 20 x 150 MG & 10 x 100MG 3 tablets Orally Twice a day for 5 days Feb, Not-TakingStart: 06-32-9745bdrz 3 tablets by mouth every twelve hours Paxlovid (300/100) 20 x 150 MG & 10 x 100MG 3 tablets Orally Twice a day for 5 days Feb, Active Problems Active Problems Problem ClassificationProblemDateDocumented DateEpisodic/ChronicCoagulation and hemorrhagic disorders (5 sources)Spontaneous ecchymosis; Translations: [Spontaneous ecchymoses] EpisodicDisorders of lipid metabolism (10 sources)Hyperlipidemia; Translations: [Hyperlipidemia, unspecified]Chronic Diverticulosis and diverticulitis (2 sources)Suslyzwhkynmmm64-13-4627FsiiqujZ Codes: Struck by; against (1 source)Walked into furniture, initial encounter; Translations: [WALKED INTO FURNITURE INITIAL ENC]Onset: 56-68-6211SpsgcgguChxajfiuak disorders (13 sources)Gastroesophageal reflux disease; Translations: [GERD [Gastroesophageal reflux disease]]72-75-4520BkiisanSjvfykzgy and duodenitis (2 sources)Chronic ihlglldrr36-67-3988KtrgsvzScztomisjbc (2 sources)Aywcxsrybww95-64-5734MdnlcwuoQrofr disorders and dislocations; trauma-related (6 sources)Patellofemoral stress syndrome; Translations: [Patellofemoral disorders, right knee]ChronicOsteoarthritis (5 sources)Primary osteoarthritis, left ankle and foot; Translations: [Osteoarthritis of left foot]ChronicOther aftercare (1 source)intermediate (current) use of aspirin; Translations: [MCFP CURRENT USE OF ASPIRIN]Onset: 59-99-5888HlziuxwhMblgf and unspecified benign neoplasm (6 sources)History of polyp of rebau43-56-4086NccqtzafHuber and unspecified benign neoplasm (3 sources)Polyp of colon; Translations: [Polyp of colon]Onset: 02-07-2023 62-84-5825TjyhlmhpOnenp circulatory disease (2 sources)Feeling of lump in enmkeo53-52-9668CatefomuIgnjp connective tissue disease (3 sources)Other specified soft tissue disorders; Translations: [OTHER SPEC SOFT TISSUE DISORDERS]Onset: 99-35-2493SnvwgitxWqfjg connective tissue disease (1 source)Pain in left footEpisodicOther gastrointestinal disorders (2 sources)Abdominal wind fkrs58-36-7833SjvtxvkhThgvw gastrointestinal disorders (2 sources)Eopapnzal59-68-8252VyhveabhDfeti lower respiratory disease (6 sources)Chronic cough; Translations: [Chronic cough]55-90-8966LupfbrrgTwrnc non-traumatic joint disorders (5 sources)Arthralgia of the lower leg; Translations: [Pain in right knee] EpisodicOther nutritional; endocrine; and metabolic disorders (5 sources)Obese class I; Translations: [Body mass index (BMI) 31.0-31.9, adult] ChronicOther screening for suspected conditions (not mental disorders or infectious disease) (5 sources)Encounter for screening mammogram for malignant neoplasm of breast; Translations: [ENC SCR MAMMO MALIG NEOPLASM BREAST]Onset: 78-36-8768Epxbyhaz Other upper respiratory disease (12 sources)Seasonal allergic rhinitis; Translations: [Other seasonal allergic rhinitis]ChronicOther upper respiratory disease (1 source)Other seasonal allergic rhinitisOnset: 10-13-2021 Resolved: 52-59-4487GnuleycUmqax upper respiratory disease (5 sources)Allergic rhinitis; Translations: [Allergic rhinitis, unspecified] ChronicOther upper respiratory infections (11 sources)Acute maxillary sinusitis; Translations: [Acute recurrent maxillary sinusitis]Onset: 050494-16-2405XtswoaiuHigtcssw codes; unclassified (2 sources)Family history of cancer of qfghi62-61-3788GjxiefvrEapwlkgy codes; unclassified (2 sources)Family history of polyp of oqbkp99-98-0908WoyetbcwGvxgzqdc codes; unclassified (5 sources)Family history of breast cancer; Translations: [Family history of malignant neoplasm of breast]EpisodicResidual codes; unclassified (5 sources)Family history of malignant neoplasm of gastrointestinal tract; Translations: [Family history of malignant neoplasm of digestive organs]Episodic Residual codes; unclassified (5 sources)Family history of diabetes mellitus; Translations: [Family history of diabetes mellitus]EpisodicScreening and history of mental health and substance abuse codes (1 source)Personal history of nicotine dependence; Translations: [PERSONAL HISTORY OF NICOTINE DEPEND]Onset: 13-79-7529CiilvporBkgqzfastxi injury; contusion (1 source)Contusion of right lower leg, initial encounter; Translations: [CONTUSION RIGHT LOWER LEG INITIAL]Onset: 23-36-0538YribujokNfsybaetrvjw (1 source)Encounter for screening for malignant neoplasm of cervix; Translations: [Encounter for screening for malignant neoplasm of cervix]Onset: 67-96-7191Xwhqjaamywjk (1 source)Pain in left foot; Translations: [Pain in left foot]Onset: 08-06-2023 Past or Other Problems Problem ClassificationProblemDateDocumented DateEpisodic/ChronicAcute bronchitis (5 sources)Acute bronchitis; Translations: [Acute bronchitis, unspecified]Onset: 73-90-6443YkquqjsqEtmntsekqm associated with dizziness or vertigo (5 sources)Benign paroxysmal positional vertigo; Translations: [Benign paroxysmal positional vertigo]Onset: 63-46-2192SxpbkjgkZzjkszqymk disorders (1 source)Esophageal disordersImmunizations and screening for infectious disease (6 sources)Contact with and (suspected) exposure to other viral communicable diseases; Translations: [Vaccination given]Onset: 09-14-2018 Resolved: 61-08-4989LxasrzfkKztdfhw (5 sources)Candidiasis; Translations: [Candidiasis, unspecified]Onset: 14-72-2861JvavajzmKfbuf connective tissue disease (1 source)Myalgia/myositis - multiple; Translations: [Unspecified myalgia and myositis]Onset: 69-57-8736XrciwkdbJjjzp connective tissue disease (5 sources)Hand pain; Translations: [Pain in unspecified hand]Onset: 12-25-2013 EpisodicOther connective tissue disease (5 sources)Spasm; Translations: [Spasm of muscle]Onset: 25-56-2917SxcwykrgWjyfn connective tissue disease (4 sources)Muscle pain; Translations: [Unspecified myalgia and myositis]Onset: 07-05-4184FfmwiejnRgice non-traumatic joint disorders (5 sources)Shoulder joint pain; Translations: [Pain in joint, shoulder region] Onset: 71-77-5853PqefahvhDdgmp upper respiratory disease (5 sources)Bleeding from nose; Translations: [Epistaxis]Onset: 09-14-2018 EpisodicResidual codes; unclassified (1 source)Family history of malignant neoplasm of breast; Translations: [FAMILY HX MALIG NEOPLASM OF BREAST]Onset: 38-11-2530NpjvpjctUdepfthe codes; unclassified (1 source)Family history of malignant neoplasm of digestive organs; Translations: [FAM HX MALIG NEOPLASM DIGESTIV ORGN]Onset: 59-04-9742Fbzkdybi Residual codes; unclassified (1 source)Family history of malignant neoplasm of other organs or systems; Translations: [FAM HX MALIG NEOPLASM OTH ORGN/SYS]Onset: 01-87-0698Ugwqdfof Urinary tract infections (5 sources)Acute cystitis; Translations: [Acute cystitis]Onset: 09-10-2015 EpisodicViral infection (1 source)COVID-19 Results Test NameValueInterpretationReference RangeFacilityIGP,Aptima HPV,Age Gdlnon 73-37-5474Uuv Image GuidedNoteNormal.[facility]ion HospitalComment on above:Order Comment: COLLECTION TECHNIQUE:: BROOM-ALONE GYNOCOLOGICAL BODY SITE:: CERVIX ENDOCERVIXResult Comment: TESTS RESULT FLAG UNITS REF RANGE LAB Clinician Provided Cytology Information Source.............Cervix;Endocervix No. of containers..01 ThinPrep Vial Age Algo ACOG Allyn... Note 01 <21 or >65 or no age provided FLAG LEGEND: L-Low Normal,H-High Normal,LL-Alert Low,HH-Alert High <-Panic Low,>-Panic High,A-Abnormal,AA-Critical Abnormal Performed at: 01 =G [facility] [place] [address] Argelia Stewart MD, Xxdkobzgx By: #### PAP [id number] #### [facility] ,Result Comment: TESTS RESULT FLAG UNITS REF RANGE LAB DIAGNOSIS: 02 NEGATIVE FOR INTRAEPITHELIAL LESION OR MALIGNANCY. CELLULAR CHANGES ASSOCIATED WITH ATROPHY ARE PRESENT. Specimen adequacy: 02 Satisfactory for evaluation. Endocervical component may not be distinguished in cases of atrophy. Performed by: 02 John Birch, Tractor Driver ([facility]) . 02 Note: Note 02 The [...] <-Panic Low,>-Panic High,A-Abnormal,AA-Critical Abnormal Performed at: [address] [address] Argelia Stewart MD, Performed at: =G - [facility] [address] [id number] Geothermal Powerplant Mechanic: Argelia Stewart MD, Phone: [phone] Performed at: - [facility] [address] [id number] [employer]othermal Powerplant Mechanic: Argelia Stewart MD, Phone: [phone] PERFORMED BY: [facility] [address] [place] [id number] PATHOLOGIST COAL WHEELER ROSALBA SONI M.D.XR foot LT min 3V*on 18-16-4801SS foot LT min 3V*[facility] [employer] Other XR foot LT min 3V*[facility] [employer] Other XR foot LT min 3V*[address] [place] [address] [employer] Other XR foot LT min 3V*[facility] [employer] Other XR foot LT min 3V*[facility] [employer] Other XR foot LT min 3V*[facility] [employer] Other XR foot LT min 3V*Patient: Sharyn Riggs MR#: [id number] [facility] [employer] Other XR foot LT min 3V*: 1955 Acct:[id number] Other XR foot LT min 3V*Age/Sex: 68 / F ADM Date: 08/06/23 [facility] [employer] Other XR foot LT min 3V*Loc: XDUCLY Room: Type: REG CLINorth [employer] Other XR foot LT min 3V*Attending Dr: Camila WINSLOW [facility] [employer] Other XR foot LT min 3V*Copies to: GOLDY Broderick [facility] [employer] Other XR foot LT min 3V*Ordering Provider: TIAN BroderickWillapa [facility] Hospital [employer] Other XR foot LT min 3V*Date of Service: 08/06/23Avenue [employer] Other XR foot LT min 3V* XR/XR foot LT min 3V*: LEFT FOOT PAINAvenue [employer] Other XR foot LT min 3V*XR foot LT min 3V* 08/06/2023 11:23 [facility] [employer] Other XR foot LT min 3V*SIGNS AND SYMPTOMS: Left foot pain along the dorsum of the left foot/metatarsals for [address] [employer] Other XR foot LT min 3V*PROTOCOL: Frontal, lateral, and oblique radiographs of the left footAvenue [employer] Other XR foot LT min 3V*COMPARISON: [facility] [employer] Other XR foot LT min 3V*FINDINGS:[employer] Other XR foot LT min 3V*The bones are in anatomic alignment. There is no fracture or dislocation. Degenerative changes [facility] [employer] Other XR foot LT min 3V*noted throughout the midfoot with mild soft tissue swelling over the dorsum of the midfoot. [facility] [employer] Other XR foot LT min 3V*plantar and Achilles surface calcaneal spurring is noted.[employer] Other XR foot LT min 3V* XR/XR foot LT min 3V*[employer] Other XR foot LT min 3V*IMPRESSION:[employer] Other XR foot LT min 3V*No acute bony injury.[employer] Other XR foot LT min 3V*Degenerative changes are noted in the midfoot with soft tissue swelling over the dorsum of [employer] Other XR foot LT min 3V*midfoot.[employer] Other XR foot LT min 3V*Impression dictated by: Jay Bowling M.D.08/06/2023 11:49 [facility] [employer] Other XR foot LT min 3V*Dictation Location: [id number] [employer] Other XR foot LT min 3V*Transcribed By: NICKY 08/06/23 [facility] [employer] Other XR foot LT min 3V*Dictated By: Jay Bowling II, MD 08/06/23 [facility] Other XR foot LT min 3V*Signed By:[employer] Other XR foot LT min 3V*08/06/[address] [facility] [address] [facility] Other XR foot LT min 3V*[facility] [place] [address] XRay Report Signed Patient: Sharyn Riggs MR#: [id number] : 1955 Acct:[id number] Age/Sex: 68 / F ADM Date: 08/06/23 Loc: XDUCLY Room: Type: [facility] CLI Attending Dr: Camila WINSLOW Copies to: GOLDY Broderick Ordering Provider: GOLDY Broderick Date of Service: 08/06/23 XR/XR foot [...] Jay Bowling M.D.08/06/2023 11:49 AM Dictation Location: [place] [address] Transcribed By: [facility] 08/06/23 1149 Dictated By: Jay Bowling II, MD 08/06/23 1147 Signed By: 08/06/23 1149Magruder HospitalPostoperative Documentson 78-55-7698Yyjvsfbjazkms Documents [id number]:127[facility] HospitalPatient Letter FTon 86-07-2389Xqrxrvm Letter [facility] February 15, 2023 SHARYN RIGGS [address] [place] [address] SHARYN RIGGS 1955 Below is a summary of the results of your recent colonoscopy. Your results have been sent to your primary care provider along with recommendations on when the procedure should be repeated. COLONOSCOPY WITH POLYP REMOVAL _X__ Normal - NO CANCER Type of polyp tubular adenoma - not cancer but can become cancer if not removed. Additional colonoscopies will benecessary to monitor your condition and assure that new polyps have not developed. Based on your results we are recommending you repeat the procedure in 5 years You will be placed in our reminder system and will receive a reminder letter prior to your next duedate. [facility] [phone] 16-65-2863Tdvjkyjre From: Elisabeth Beck I To: [facility] - Reminders/Recalls; Sent: 02/15/2023 14:22:52 EDT Show up: 12/10/2027 14:22:00 EST Subject: Colonoscopy Recall Due Date/Time: 02/08/2028 14:22:00 EDT Reminder/Recall 5 year colon recall 02/08/2028 Dr. [facility] CampusIntraOperative Documentson 02-11-2023 IntraOperative [id number]#1.00CD:127 [facility] HospitalCoding Summary.on 52-79-6156Kyctyu Summary. CD:[id number]+PGhlYWQ+YQ6PGOYbP97nqPKqdP3aY6BVPSzSGmsnNSEYNWmDMrUctgNoR D7bwBNlFOCi [file] IlQuo3ll (more content not included)...[facility] HospitalMain OR Intraoperative Recordon 70-73-7869Qnqf OR Intraoperative RecordIntraOp Document Type FT Summary Primary Physician: Vishal WOODARD MD Finalized Date/Time: 02/10/23 07:41:19 Pt. Name: SHARYN RIGGS/Sex: 1955 Female Med Rec #: [id number] Physician: Vishal WOODARD MD Financial #: [id number] Pt. Type: O Room/Bed: / Admit/Disch: 02/07/23 12:18:07 - 02/07/23 23:59:59 Institution: Case Times FT Entry 1 Patient Times In Room 02/07/23 13:15:00 Out Room 02/07/23 13:38:00 Procedure Times Start 02/07/23 13:26:00 Stop 02/07/23 13:36:00 Anesthesia Times Start 02/07/23 13:15:00 Stop 02/07/23 13:38:00 Time at [facility] 02/07/23 13:29:00 Last Modified By: Huong PENA, Anna Salazar 02/07/23 13:39:22 General Comments: 02/10/23 Chart opened to review and send charges LRoth CSFA Case Attendance FT Entry 1 Entry 2 Entry 3 Case Attendee Moose MCDONNELL, Huong PENA, Ann Irizarry Role Performed MEDICAL CLAIMS SPECIALIST Network Admin - Primary Staff - Other Time In [...] Applicable) PreOp Antibiotic No Time Out Moose MCDONNELL, Given Participants Camila Richardson, Anna Borja RN, Mauro BLACKBURN, Sonali Fletcher, SAMIR ZAMUDIO, Vishal Time Out Complete 02/07/23 13:18:00 Outcomes Met? [...] colon polypectomy. Primary Procedure Yes Primary Surgeon SAMIR ZAMUDIO, Vishal Start 02/07/23 13:26:00 Stop 02/07/23 13:36:00 Anesthesia [...] and tissue Entry 1 Skin Integrity Intact, [place], Warm, and Skin Abnormality No Dry Outcomes [...] Entry 1 Procedure COLONOSCOPY( (more content not included)...NormalFisher Western Maryland Hospital CenterConsenton 15-68-5346Yamhixl [id number]#1.00CD:127NormPremier Health [facility] Hospital SouthDischarge Instructionson 61-49-1034Xzxtaykiu Instructions [id number]#1.00CD:127NoGood Samaritan HospitalConsent for Treatmenton 64-00-6110Fglljjs for Treatment [id number]#1.00CD:127NoGood Samaritan HospitalEndoscopic Procedure Report - Otheron 55-67-9574Tznbtofiwp Procedure Report - OtherPatient: SHARYN RIGGS Age: 67 years Sex: Female [...] internal and external hemorrhoids Images Procedure images: Rec1_hd_video_2022__T1_39_19_607.jpg Rec1_hd_video_2022__T1_36_19_707.jpg Rec1_hd_video_2022___34_45_650.jpg Rec1_hd_video_2022__T1_35_42_377.jpg Rec1_hd_video_2022__T12_34_22_055.jpg . Post-Procedure Complications: none. Estimated blood loss: [...] hours. Cecal mucosal bridge noted, 1 cm, [facility] Comment on above:Result Comment: Electronically Signed By: SAMIR ZAMUDIO, Vishal\.br\Date and Time Signed: 02/07/23 14:08 EDTOther Comment: Missing Attachment - attachment storage system not supported [id number] Can be viewed in source system Missing Attachment - attachment storage system not supported [id number] Can be viewed in source systemMissing Attachment - attachment storage system not supported [id number] Can be viewed in source systemMissing Attachment - attachment storage system not supported [id number] Can be viewed in source systemMissing Attachment - attachment storage system not supported 1681014 Can be viewed in source systemMain OR PACU I Recordon 12-81-4926Vdkv OR PACU I RecordPACU Phase I Document Type FT Summary Primary Physician: Vishal WOODARD MD Finalized Date/Time: 02/07/23 14:20:26 Pt. Name: SHARYN RIGGS [place]/Sex: 1955 Female Med Rec #: [id number] Physician: Vishal WOODARD MD Financial #: [id number] Pt. Type: O Room/Bed: / Admit/Disch: 02/07/23 [...] individualized perioperative plan of care The patient's rightto privacy is maintained The patient's value system, [...] with or improved from baseline levels established preoperativelyThe patient's cardiovascular status is consistent with or improved from baseline levels established preoperatively The patient's cardiovascular status is consistent with or improved from baseline levels established preoperatively The patient demonstrates and/or reports adequate pain control throughout the perioperative period The patient received appropriate medication(s), safely administered during the perioperativeperiod Acuity Level PACU I FT Entry 1 Start Time 02/07/23 13:41:00 Stop Time 02/07/23 14:11:00 Acuity Level Acuity Level I Last Modified By: Stephanie Bustillo I 02/07/23 14:20:20 Finalized By: Stephanie Bustillo I Document Signatures Signed By: Stephanie Bustillo I 02/07/23 14:20NormalSelect Medical Trihealth Rehabilitation HospitalMain OR Preoperative Recordon 72-68-7063Cuwl OR Preoperative RecordHolding Area Document Type FT Summary Primary Physician: Vishal WOODARD MD Finalized Date/Time: 02/07/23 12:51:47 Pt. Name: SHARYN RIGGS /Sex: 1955 Female Med Rec #: [id number] Physician: Vishal WOODARD MD Financial #: [id number] Pt. Type: O Room/Bed: / Admit/Disch: 02/07/23 [...] or her perioperative plan of care The patient'sright to privacy is maintained Surgery Checklist FT [...] Signatures Signed By: Mak Scott RN 02/07/23 12:51NormPremier Health Miami Valley Hospital SouthMonitor Recordon 58-82-8465Grqspzm Record [id number]:127NoianSelect Medical Trihealth Rehabilitation HospitalMonitor [id number]#1.00CD:127Normdandre [facility] HospitalProgress Note-Physicianon 38-38-5886Ytntjgol Note-PhysicianPatient: SHARYN RIGGS Age: 67 years Sex: Female : 1955 Associated Diagnoses: None Author: Ellis Prescott Jr., DO Postoperative Information Postoperative disposition: Postoperative disposition: Home. Optimetrix number: Optimetrix number [id number]. Anesthetic utilized: General. Physical Examination Vital Signs [...] to Ambulatory Surgery Unit, and To home ).[facility] Comment on above:Result Comment: Electronically Signed By: Ellis Prescott Jr., DO\.br\Date and Time Signed: 02/07/23 15:00 EDTProgress Note-PhysicianPatient: SHARYN RIGGS Age: 67 years Sex: Female [...] day(s), # 90 tab(s), Refills(s) 2, Pharmacy: [facility]/pharmacy #[id number], 169, cm, 12/10/22 14:03:00 EST, Height/Length Dosing, 92.2, kg, 12/10/22 14:03:00 EST, Weight Dosing Pepcid 20 mg Tab: 20 mg = 1 tab(s), Oral, Once a day (at bedtime), X 90 day(s), # 90 tab(s), Refills(s) 0, Pharmacy: [facility]/pharmacy #[id number], 169, cm, 12/10/22 14:03:00 EST, Height/Length Dosing, 92.2, kg, 12/10/22 14:03:00 EST, Weight Dosing Sutab oral tablet: See Instructions, 1 EA, Refill(s) 0, BOB, Please follow instructions per packaging and physician's handout, [facility]/pharmacy #[id number], 169, cm, 12/10/22 14:03:00 EST, Height/Length [...] All Problems Chronic gastritis / SNOMED CT 00402384 / Confirmed Colon polyps / SNOMED CT 271414779 / Confirmed Diverticulitis / SNOMED CT 770300128 / Confirmed Encounter for colonoscopy due to history of colonic polyp / SNOMED CT 0295088613 / Confirmed Family history of colon cancer / SNOMED CT 878145489 / Confirmed Family history of colonic polyps / SNOMED CT 1624394834 / Confirmed Gas pain / SNOMED CT 712117703 / Confirmed Heartburn / SNOMED CT 81764579 / Confirmed Hemorrhoids / SNOMED CT 836884888 / Confirmed History of colon polyps / SNOMED CT 3236855809 / Confirmed History of rectal polyps / SNOMED CT 8941812895 / Confirmed Obesity / ICD-9-CM 278.00 / Possible Sensation of lump in throat / SNOMED CT 883469435 / Confirmed Histories Past Medical History: No active or resolved past medical history items have been selected or recorded. Procedure history: Esophagogastroduodenoscopy and biopsy (6454358987) on 08/31/2021 at 66 Years. Colonoscopy (701810317) on 09/24/2019 at 64 Years. Tonsillectomy (092298576). Social History Social & Psychosocial Habits Alcohol [...] Respirations are non-labored. Cardiovascular: Regular rhythm. Plan [place] [employer]esthesiologists (ASA) physical status classification: Class II. Anesthetic Preoperative Plan: Anesthesia General, and -TIVA.[facility] HospitalComment on above:Result Comment: Electronically Signed By: Ellis Prescott Jr., DO.clem\Date and Time Signed: 02/07/23 12:30 EDTCoding Summary.on 56-26-1529Zdweco Summary. CD:[id number]:[id number]+[id number] KB4FEdbA3SsrjCx [file] Y29s (more content not included)...[facility] HospitalConsent for Procedure/Surgeryon 02-00-7989Tztuqzm for Procedure/Surgery [id number]#1.00CD:127NormPremier Health Miami Valley Hospital SouthAmbulatory Visit Summaryon 98-73-0410Gnvrachkkr Visit Summary SHARYN RIGGS :1955 Visit Date:12/10/2022 [...] (Lipitor 10 mg Tab) montelukast Procedures Performed Esophagogastroduodenoscopy and biopsy (08/31/2021), Colonoscopy (09/24/2019), Tonsillectomy. Discharge Vitals Temperature (Temporal Artery) 36.3 ?C Heart Rate (Peripheral) 58 Blood Pressure 132/82 Height 169 cm Height 67 in Weight 92.2 kg Weight 202.84 lb BMI 32.28 What to do next Scheduled Follow-Up Appointments Tuesday 1:30 PM EDT Where: [facility] You Need to Schedule the Following Appointments Follow Up with Racheal Macias CNP When: Within 1 to 2 weeks Comments: Following colonoscopy. Where: Medications What How Much When Why Instructions New famotidine (Pepcid 20 mg Tab) 1 Tablets By Mouth Once a day (at bedtime) Heartburn Duration: 90Days Pickup at [facility]/pharmacy #6149 New magnesium sulfate/ potass Cl/ sodium sulf (Sutab oral tablet) See instructions Please follow instructions per packaging and physician's handout Pickup at [facility]/pharmacy #6104 Changed pantoprazole (Pantoprazole [address] Tab) 1 Tablets By Mouth Every day Heartburn Duration: [address] [facility]/pharmacy #6177 Unchanged aspirin (aspirin 81 mg oral tablet) 1 Tablets By Mouth Every day Contact prescribing physician if questions or concerns Unchanged atorvastatin (Lipitor 10 mg Tab) 1 Tablets By Mouth Once a day (at bedtime) Contact prescribing physician if questions or concerns Unchanged montelukast 10 Milligram By Mouth Every day Contact prescribing physician if questions orconcerns Pharmacy Information [facility]/pharmacy #[id number]: [address], [place] [phone] Allergies No Known Allergies Problems Ongoing - [...] including vitamins, herbs, eye drops, creams, and waxv-ffx-ihbtvlw medicines. ? Any problems you or family [...] diet. Drink only clear liquids, such as clearbroth or bouillon, black coffee or tea, clear [...] out your colon: ? (more content not included)...NormalSelect Medical Trihealth Rehabilitation HospitalBMPon 12-10-2022 Anion gap [Moles/Vol]9 mmol/LNormal6-16[facility] Rehabilitation HospitalComment on above:Performed By: #### [id number], 5718277, 8918616, 19408690 ####[facility] [address] [place], [place] [address]Iqabvmd [Mass/Vol]9.4 mg/dLNormal8.9-11.1FOhioHealth Shelby HospitalComment on above:Performed By: #### 0741143, 1566656, 2115226, [id number] ####[facility] [address] [place], [place] [address]Dblymtue [Moles/Vol]108 mmol/LNormal 101-111[facility] Rehabilitation HospitalComment on above:Performed By: #### 8805273, 9825030, 2701245, 35926244 ####[facility] [address] [place], [place] [address]KO8 [Moles/Vol]29 mmol/ZHnayav11-09OpxrlsSelect Medical Trihealth Rehabilitation HospitalComment on above:Performed By: #### 9046085, 0406068, 9066305, 25582293 ####[facility] [address] [place], [place] [address]Jotdruhakj [Mass/Vol]0.8 mg/dLNormal0.5-1.3FOhioHealth Shelby Hospital Comment on above:Performed By: #### 7164154, 0495185, 5750973, 21947087 ####[facility] [address] [place] [address] Glucose [Mass/Vol]72 mg/eDZivbck43-584OckpkcSelect Medical Trihealth Rehabilitation HospitalComment on above:Result Comment: If this glucose result represents a fasting glucose, interpretation should refer tothe following reference range: 55-99 mg/dL Performed By: #### [id number], 9976660, 2104006, 46383687 ####[facility] [address] [place], [place] [address]Vorvubzhd [Moles/Vol]4.0 mmol/LNormal3.5-5.3FOhioHealth Shelby HospitalComment on above:Performed By: #### 6842333, 6188638, 8732068, 75198422 ####[address] [place], [place] [address]Gpzgis [Moles/Vol]142 mmol/LNormal 135-145[facility] Tri[facility] Rehabilitation HospitalComment on above:Performed By: #### 4979151, 8928895, 4209742, 82764515 ####[facility] [address] [place], [place] [address]Doaz nitrogen [Mass/Vol]17 mg/dLNormal5-21[facility] Rehabilitation HospitalComment on above:Performed By: #### 8827479, 7058520, 8146271, 20201341 ####[facility] [address] [place], [place] [address]Imxh nitrogen/Creatinine [Mass ratio]21 No ExcrfDmmm76-10 [facility] Rehabilitation HospitalComment on above:Performed By: #### 9956354, 7217234, 8001961, 72728029 ####[facility] [address] [place], [place] [address]ESTTEUHHRSbprfxv By: SYSTEM SYSTEM on 40-36-8046Igrta gap [Moles/Vol]9 mmol/LNormal6 - 16 mEq/LFTMC RemisolCalcium [Mass/Vol]9.4 mg/dL Normal8.9 - 11.1 mg/dLFTMC RemisolChloride [Moles/Vol]108 mmol/MOwzixt665 - 111 mmol/LFTMC RemisolCO2 [Moles/Vol]29 mmol/UZvykqh10 - 31 mmol/LFTMC Remisol Cobalamin (Vitamin B12) [Mass/Vol]209 pg/iVWidqgs67 - 1500 pg/mLFTMC Remisol Creatinine [Mass/Vol]0.8 mg/dLNormal0.5 - 1.3 mg/dLFTMC RemisolGFR/1.73 sq M.predicted among blacks MDRD (S/P/Bld) [Vol rate/Area]mL/min/1.73 x3Pllldw >=59mL/min/1.73 m2FTMC Chem SGFR/1.73 sq M.predicted among non-blacks MDRD (S/P/Bld) [Vol rate/Area]mL/min/1.73 f9Ipkvsy>=59mL/min/1.73 m2FTMC Chem S Glucose [Mass/Vol]72 mg/wVYxkzqg15 - 199 mg/dLFTMC RemisolMagnesium [Mass/Vol] 2.1 mg/dLNormal1.3 - 2.4 mg/dLFTMC RemisolPotassium [Moles/Vol]4.0 mmol/LNormal 3.5 - 5.3 mmol/LFTMC RemisolSodium [Moles/Vol]142 mmol/PWviuka506 - 145 mmol/L FT RemisolUrea nitrogen [Mass/Vol]17 mg/dLNormal5 - 21 mg/dLFTMC RemisolUrea nitrogen/Creatinine [Mass ratio]21 mg/meLgdj02 - 20FTMC RemisolConsent for Treatmenton 87-63-0597Ttdgfrf for Treatment [id number]#1.00CD:127NormalLex Western [facility] Hospital CenterGastroenterology Office/Clinic Noteon 50-13-6458Uoyxukndwwmekrvl Office/Clinic NoteChief Complaint Colonoscopy recheck. HPI Staff Patient is a 67 year old female here today to schedule colonoscopy recheck and discuss Protonix. Her last colonoscopy was 09/24/2019. History of Present Illness Patient is a 67-year-old female who presents for colonoscopy. PMH of HLD- managed by patient's PCP. Patient had previous colonoscopy 09/[address] Gomez that revealed hemorrhoids, diverticulosis,hyperplastic polyp removed from cecum, transverse colon polyp that pathology revealed was with focal adenomatous changes, hyperplastic polyp removed from sigmoid, 3 hyperplastic polyps removed from re ctum, and polyp from previous polypectomy site was removed. Patient had previous EGD 08/[address] Woodard that revealed normal esophagus, normal stomach, normal duodenum, stomach biopsy revealed gastritis, negative for intestinal metaplasia, negative for H.pylori. Family history of colon cancer: Patient's maternal [...] well nourished, in no acute distress Head: Normocephalic/atraumatic Lungs: Normal respiratory effort and clear to [...] hyperplastic polyp removed from cecum, transverse colon polypthat pathology revealed was with focal adenomatous changes, hyperplastic polyp removed from sigmoid, 3 hyperplastic polyps removed from rectum- see HPI for further details regarding. Ordered Colonoscopy. Takes aspirin daily. Ordered: Colonoscopy (Hospital Procedure) 2. History of rectal polyps (Z87.19: Personal history of other diseases of the digestive system) Previous colonoscopy 09/2019 revealed hyperplastic polyp removed from cecum, transverse colon polypthat pathology revealed was with focal adenomatous changes, [...] after taking calcium pill like reflux over thelast year, and has recently started taking calcium pill during the day to see if it would help withreflux at night- occurs 1 time a week. [...] day(s), # 90 tab(s), Refills(s) 0, Pharmacy: [facility]/pharmacy #[id number], 169, cm, 12/10/22 14:03:00 EST, Height/Length Dosing, 92.2, kg, 12/10/22 14:03:00 EST, Weight Dosing pantoprazole, 40 mg = 1 tab(s), Oral, Daily, X 90 day(s), # 90 tab(s), Refills(s) 2, Pharmacy: [facility]/pharmacy #6177, 169, cm, 12/10/22 14:03:00 (more content not included)...NormalFisher Western Maryland Hospital CenterComment on above:Result Comment: Electronically Signed By: Racheal Macias CNP\.br\Date and Time Signed: 12/10/22 14:51 ESTMagnesiumon 98-53-3829Uzrhsjwsz [Mass/Vol]2.1 mg/dL Normal1.3-2.4Fisher [facility] Hospital CenterComment on above:Performed By: #### [id number], 6410919, 1677444, [id number] ####[facility] [address] [place], [place] [address]Jieeagq Educationon 32-32-3646Ashtxzy EducationRadiology Colonoscopy, Adult A colonoscopy is an exam [...] including vitamins, herbs, eye drops, creams, and rrhq-igo-hnxuzmy medicines. ? Any problems you or family [...] drink anything starting 2 hours before the procedure,or within the time period that your health [...] flexible tube. The tube will have a cameraand a light on the end. ? The [...] to the air t (more content not included)...NormalSelect Medical Trihealth Rehabilitation HospitalVit B12on 09-41-4752Wamcshxcp (Vitamin B12) [Mass/Vol]209 pg/fPLwurie01-3954FopjgrSelect Medical Trihealth Rehabilitation HospitalComment on above:Performed By: #### 7069872, 4820318, 0669821, 87271968 ####[facility] [address] [place], [place] [address]zESWti 75-91-1014GNX/1.73 sq M.predicted among blacks MDRD (S/P/Bld) [Vol rate/Area]mL/min/{1.73_m2}Normal>=59[facility] Rehabilitation HospitalComment on above: Order Comment: Order added by Discern Expert.Result Comment: eGFR is race adjusted. AA=.Performed By: #### 7448837, 9837461, 5507132, 55756215 ####[facility] [address] [place], [place] [address]RCT/1.73 sq M.predicted among non-blacks MDRD (S/P/Bld) [Vol rate/Area] mL/min/{1.73_m2}Normal>=59[facility] Rehabilitation HospitalComment on above:Order Comment: Order added by Discern Expert.Result Comment: Chronic kidney disease could be indicated at eGFR's of less than 60 mL/min/1.73m2. Kidney failure is indicated at less than 15 mL/min/1.73m2.Performed By: #### 3115602, 8368302, 2074093, 91694327 ####[facility] [address] [place], [place] [address]MW MAMM SCREEN 3D FRED CADon 08-08-9120CN MAMM SCREEN 3D FRED CADPatient: SHARYN RIGGS Exam Date: 11/18/2022 : 1955 Gender:F Ordering : DR YUN GLOVER M.D. Admission #: [id number] Family : Order #: [id number] CLICK HERE TO VIEW EXAM RADIOLOGY REPORT [...] colon cancer at age 87. LOCATION: [facility] BREAST COMPOSITION: Scattered areas fibroglandular density. [...] by: Solomon Vincent MD on 11/18/2022 at 11:45[facility] COVID Quick Testingon 44-11-5823XrlphuEorwfdldNmgzb [employer] Other Vital Signs Date TimeVital SignValuePerforming ArtkfxgxgDiaupnjc07-33-9540 18:25-0400Body ezuteh190.18 [facility]Av[facility]05-[facility]-2025 18:25-0400Body mass index (BMI) [Ratio]33 kg/h0WuquomwvxAvita Health [facility]05-07-2025 18:25-0400Body gnzyelqwisp48.6 [degF][facility]05-07-2025 18:25-0400Body xkruxl62.7 kgAv[facility]05-07-2025 18:25-0400Diastolic blood nxxtvdoj89 mm[Hg][facility] 03-27-2025 18:25-0400Heart rate72 /[facility] 03-27-2025 18:25-0400Respiratory rate18 /[facility] 03-27-2025 18:25-5556QyQ6% (BldA) [Mass fraction]96 %[facility]05-07-2025 18:25-0400Systolic blood xerefkgp741 mm[Hg][facility]01-28-2025 08:38-0500Body .18 cmAv[facility]01-28-2025 08:38-0500Body mass index (BMI) [Ratio]32.2 kg/m2 [facility]01-28-2025 08:38-0500Body pixpwmuymma80.7 [degF][facility]01-28-2025 08:38-0500Body dcpfom97.44 kg [facility]01-28-2025 08:38-0500Diastolic blood bizrefoh59 mm[Hg][facility]01-28-2025 08:38-0500Heart rate62 /min [facility]01-28-2025 08:38-6921AyW9% (BldA) [Mass fraction]96 %[facility]01-28-2025 08:38-0500Systolic blood mkmalftt118 mm[Hg][facility]11-25-2024 08:34-0500 Body ofjawi949.18 cmAv[facility]11-25-2024 08:34-0500Body mass index (BMI) [Ratio]31.4 kg/t3RurqqgmszAvita Health System [facility]11-25-2024 08:34-0500Body .1 [degF][facility]11-25-2024 08:34-0500Body slrlbe72.17 kgAvita [facility]11-25-2024 08:34-0500Diastolic blood xvetgsdx42 mm[Hg][facility] 10-15-2024 08:34-0500Heart rate73 /[facility] 10-15-2024 08:34-0500Systolic blood mm[Hg][facility]07-21-2024 11:34-0400Body dekibe547.18 cmAv[facility]07-21-2024 11:34-0400Body mass index (BMI) [Ratio]32.4 kg/n5XlwivwcfbAvita Health System [facility] Hospital07-21-2024 11:34-0400Body vadlfdzworj84.7 [degF][facility]07-21-2024 11:34-0400Body pauweu12 kgAvita Health [facility]07-21-2024 11:34-0400Diastolic blood ictjeift56 mm[Hg][facility]07-21-2024 11:34-0400Heart rate76 /[facility]07-21-2024 11:34-4193RyA5% (BldA) [Mass fraction]97 %[facility]07-21-2024 11:34-0400Systolic blood ccrthpyt654 mm[Hg] [facility]12-18-2023 08:30-0500Body kptfuh309.45 cmYun Glover Other [employer] Other 12-18-2023 08:30-0500Body mass index (BMI) [Ratio] 31.17 kg/c1YtxydjYun Glover Other [employer] Other 12-18-2023 08:30-0500Body hrjuqh95.63 kgYun Glover Other [employer] Other 12-18-2023 08:30-0500Diastolic blood mm[Hg] Yun Adalberto Other [employer] Other 12-18-2023 08:30-0500Systolic blood olvraucz174 mm[Hg] Yun Glover Other [employer] Other 09-16-2023 10:10-0400Body qfuaoe675.45 cmPamela Tamara Other [employer] Other 09-16-2023 10:10-0400Body mass index (BMI) [Ratio] 30.86 kg/j1Mylzyk Tamara Other [employer] Other 09-16-2023 10:10-0400Body tarvxcrmjtu50.9 [degF]Camila Tamara Other [employer] Other 09-16-2023 10:10-0400Body lohrxy87.72 kgPamela Tamara Other [employer] Other 09-16-2023 10:10-0400Diastolic blood jhovtkwb85 mm[Hg] Camila Tamara Other [employer] Other 09-16-2023 10:10-0400Respiratory rate18 /minPamela Tamara Other [employer] Other 09-16-2023 10:10-4108KcQ4% (BldA) [Mass fraction]97 % Camila Tamara Other [employer] Other 09-16-2023 10:10-0400Systolic blood ljtgdafe229 mm[Hg] Camila Mcdonald Other [address] [employer] Other 03-20-2023 14:06-0400Diastolic blood bsxqyhxr01 mm[Hg] Rodgers SALAM [facility]03-20-2023 14:06-0400Heart rate59 /minMaher SALAM [facility]03-20-2023 14:06-0400Mean blood jqbbskxe99 mm[Hg]Rodgers SALAM [facility]03-20-2023 14:06-0400 Respiratory rate17 /minMaher SALAM [facility]03-20-2023 14:06-1837DcO2% (BldA) [Mass fraction]96 %Rodgers SALAM [facility]03-20-2023 14:06-0400 Systolic blood mm[Hg]Rodgers SALAM [facility]03-20-2023 13:55-0400 Diastolic blood porudnmo58 mm[Hg]Rodgers SALAM [facility]03-20-2023 13:55-0400Heart rate58 /minMaher SALAM [facility]03-20-2023 13:55-0400Mean blood yjbitcew08 mm[Hg]Rodgers SALAM [facility]03-20-2023 13:55-0400 Respiratory rate14 /minMaher SALAM [facility]03-20-2023 13:55-1135WrM4% (BldA) [Mass fraction]100 %Rodgers SALAM [facility]03-20-2023 13:55-0400 Systolic blood qzovpnzc619 mm[Hg]Rodgers SALAM [facility]03-20-2023 13:50-0400 Diastolic blood mgejlmdd08 mm[Hg]Rodgers SALAM [facility]03-20-2023 13:50-0400Heart rate50 /minMaher SALAM [facility]03-20-2023 13:50-0400Mean blood mtnbdjmu49 mm[Hg]Rodgers SALAM [facility]03-20-2023 13:50-0400 Respiratory rate15 /minMaher SALAM [facility]03-20-2023 13:50-6427HyR3% (BldA) [Mass fraction]98 %Rodgers SALAM [facility]03-20-2023 13:50-0400 Systolic blood gzfadrtm474 mm[Hg]Rodgers SALAM [facility]03-20-2023 13:41-0400Body gaixxkudnkp55.24 [degF]Rodgers SALAM [facility]03-20-2023 12:51-0400Blood Pressure LocationNyher SALAM [facility]03-20-2023 12:51-0400Body qhlwlibzpsr96.34 [degF]Rodgers SALAM [facility]03-20-2023 12:51-0400 Respiratory rate18 /minMaher SALAM [facility]11-23-2021 11:15-0500Body tycuyy187.18 Kevon Whitlock Other [employer] Other 11-23-2021 11:15-0500Body mass index (BMI) [Ratio] 31.32 kg/x9JanymuqwjBabita Whitlock Other [facility] [employer] Other 11-23-2021 11:15-0500Body evqmxeilsrw70.8 [degF] Babita Whitlock Other [employer] Other 11-23-2021 11:15-0500Body kmubuc67.72 kgStbud Whitlock Other no[employer]lectica Other 11-23-2021 11:15-1942VoL1% (BldA) [Mass fraction]96 % Babita Whitlock Other no[employer] Other Encounters Encounter DateEncounter TypeCare ProviderFacilityStart: 03-27-2025 End: 25-49-4257dfmudshmkvHmqkxojxrSt. [facility] Work Phone: Start: 03-27-2025 End: 00-92-7609Tnddvfk encounter procedureCritical Access Hospital [facility] Work Phone: Start: 12-18-2024 End: 72-78-3315jqniovytvaZfdcxwscdSt. [facility] Hospital Work Phone: Start: 12-18-2024 End: 47-20-8306Vdporas encounter procedureFirballad health Physician Group-[facility] Work Phone: Start: 10-15-2024 End: 42-23-9707Aljqxvf encounter procedureFirla crosses Physician [facility] Work Phone: Start: 06-10-2024 End: 86-72-3522zblfugawusUugmcfninSt. Vincent Hospital Work Phone: start: 06-10-2024 End: 51-35-8735Aklrspo encounter procedureCritical Access Hospital [facility] Work Phone: Start: 11-17-2023 End: 01-87-6989xekdtvwjmnQncmwq Braun Other [employer] Other Start: 41-50-8158Fzpcqwbnq encounterMarcia [facility] Hospitaltart: 11-16-2023 End: 08-57-3577ycmbpcsrvsCyduuq Braun Other [employer] Other Start: 65-66-0598Wupmzqkej encounterMarcia Kanakanak Hospitaltart: 38-52-4888Imbalizph for gynecological examination (general) (routine) without abnormal findingsMarcia [facility] Start: 19-53-5170Tjpagqr encounter procedureMarcielsa [facility] Start: 11-07-2023 End: 99-80-5253ijtsaczumyMqkcux E BraunFacility:[facility] Hospitaltart: 11-07-2023 End: 75-78-8701gtsgjwqqbzXU Yun Adalberto Work Phone: [facility] Work Phone: Start: 11-07-2023 End: 61-78-9600Imudhgat Referred Yun Adalberto Work Phone: [facility] [place] Work Phone: Start: 10-25-2023 End: 81-44-2428dzbczymjbbQzqaux Braun Other [employer] Other Start: 20-89-0444Nabtzptqh for general adult medical examination without abnormal findingsMarcia [facility]akan[facility] Hospitaltart: 72-36-9312Ucpvukyea encounterMarcia [facility] ClinicStart: 05-28-5590Ykprhy outpatient visit 15 minutesPamela DymondFPG [facility] Start: 08-06-2023 End: 26-25-3524gdengsncrtXQ Marcia E Braun Work Phone: [facility] [employer] Other Start: 08-06-2023 End: 40-03-7902Ncgizoy encounter procedureMD Yun Glover Work Phone: [facility] Work Phone: Start: 04-16-2023 End: 70-69-7202nsefafqxjlKK MARCIA E BRAUNFacility:N9Ufzmh: 08-83-5659popmtgcell DR YUN GLOVERFacility:J0Ycncn: 02-24-2023(Televisit) TelevisitYun Glover [facility]: 02-24-2023 End: 22-50-1675szggqianqqDqqgxw Braun Other [address] [employer] Other Start: 02-07-2023 End: 61-04-1243rkdqrfddacWhccb SALAMFacility:FTMCStart: 02-07-2023 End: 32-09-9742Swboegt encounter procedureMaher SALAM [facility] Start: 12-10-2022 End: 90-10-8714bmcivpidnsBlxb A MylesmetzFacility:FTMCStart: 12-10-2022 End: 22-51-3657khindpdyhyDhfr A SteinmetzFacility:[facility] DHStart: 12-10-2022 End: 22-15-0244Vykkdlo encounter procedureBeth A Gilberto [facility] Start: 11-18-2022 End: 23-58-7320uitbqqjavdXGGayle GLOVERFacility:E6Bszdf: 82-93-2382Skmsz health examinationCamila Mcdonald Other [employer] Other Start: 88-77-8523Rrhvcbqazsnam examination normal Camila Mcdonald Other [employer] Other Start: 10-13-2021 End: 21-22-6039giutoglcweJddsrhubp Kamlesh Other nort [employer] Other Start: 83-14-8814Semssp outpatient visit 15 minutes Babita WhitlockFPArun [facility] Procedures DateProcedureProcedure DetailPerforming ClinicianStart: 89-83-1658N-ray of left footMD Yun Glover Work Phone: Start: 95-82-5626MnfvqpsuohaYvwsi SALAM Start: 65-36-9985Vzedjvxwf and biopsy of upper gastrointestinal tractBeok Macias Start: 96-80-4360MiokbifkbytIdpz Gilberto Start: 34-86-7495Xorbzmllo for malignant neoplasm of colonCamila Mcdonald Other Start: 72-19-9888Hzzoluc examination of Johnnie Mcdonald Other TonsillectomyBeok Macias Plan of Treatment DateCare ActivityDetailAuthorStart: 89-21-5511OddjxvdnoAv[facility] Human papilloma virus 16+18+31+33+35+39+45+51+52+56+58+59+66+68 DNA [Presence] in Cervix by Probe with signal amplificationAvita Health System Galion Hospital Immunizations Immunization DateImmunizationNotesCare UxqldkveQdgxpzqs72-51-7987ynmxfnqjs virus vaccine, split virus (incl. purified surface antigen)Camila Mcdonald Other [employer] Other 11551267-21-6820ednzgeddy virus vaccine, unspecified formulationRacheal Macias 651-2841Swvgpz-KhksfRegency [facility]06-21-2022 COVID-19 Vaccine Pfizer - Documentation Purposes Erin Tamara Other [facility]06-21-2022SARS-CoV-2 mRNA (gpbfojojruu-sijn-vrrlcyf) vaccineBeok Macias 766-1772Qqtrcs-HhwwmRegency [facility]12-10-2021 influenza virus vaccine, split virus (incl. purified surface antigen)Camila Tamara Other Avenue [employer] Other 1126325-21-1581hhnkzxljb virus vaccine, unspecified formulationRacheal Macias 729-4381Ioxxzn-OpjpaRegency Hospital [facility]11-22-2021 SARS-CoV-2 (COVID-19) mRNA-1273 vaccineBeok Macias 889-5001Duiijt-QuzpzRegency Hospital [facility]03-10-2021 SARS-CoV-2 (COVID-19) Ad26 vaccine, recombinantBeok Macias 195-1080Nqlntb-HytxhRegency Hospital [facility]11-16-2019 influenza virus vaccine, unspecified formulationRacheal Macias 116-9293Vzecff-WeqvaRegency Hospital [facility] West11-16-2019 pneumococcal polysaccharide vaccine, 23 valentBeok Macias 815-0602Riiflk-KpbmrRegency Hospital [facility]10-25-2018 influenza virus vaccine, split virus (incl. purified surface antigen)Camila Tamara Other Avenue [employer] Other 1098885-87-1870tfhfzafxk virus vaccine, unspecified formulationRacheal Macias 113-4224Kdhuwc-KdjsrRegency Hospital [facility]10-02-2012 tetanus and diphtheria toxoids, adsorbed, preservative free, for adult use (5 Lf of tetanus toxoid and 2 Lf of diphtheria toxoid)Camila Tamara Other [facility] Payers DatePayer CategoryPayerPolicy [id number]-omi [id number] Health [id number] [id number] 2.16.840.1.156706.3.579.2.727 [id number] 2.16.840.1.014125.3.57[id number] 2.16.840.1.951627.3.57[id number] 2.16.840.1.982698.3.57[id number] 2.16.840.1.7[id number] 2.16.840.1.442843.3.579.2.531 [id number] 2.16.840.1.393674.3.579.2.531 Social History DateTypeDetailFacilityUnknown if ever smokedNort [employer] Other Sex Assigned At [facility] Start: 12-10-2022 End: 87-85-3876Vograbf smoking statusEx-smoker (finding)[facility] HealthTobacco smoking statusNeverCrystal [facility] Digestive HealthStart: 51-11-1231Vzx Assigned At [facility]ertart: 12-18-2024 End: 50-41-7241FpkSpbnqq (finding)[facility] Functional Status PrgfHpqudibdpqQpkdqhHjamdsse36-31-9555Krwrbpquwk StatusN/AFtonia [facility] Clinical Notes 10-13-2021 to 10-15-2024 Note Date & UdzpDtoiMruhgrvs68-00-3043 Evaluation note* Diagnosis Onset Date Resolution Status Admit Date Sinusitis, acute maxillary acuteNovember 2023 8:31am [facility] Work Phone: [phone] Evaluation note* Encounter Date Diagnosis Assessment Notes Treatment Notes Treatment Clinical Notes Oct, GERD [Gastroesophageal reflux di sease] (ICD9-CM - 530.81) [employer] Other 12-18-2023 Evaluation note* Encounter Date Diagnosis [...] reviewed and amended by provider signed below. 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 Oct,Screening mammogram, encounter for (ICD-10 - Z12.31) Oct,Encounter for gynecological examination without abnormal finding (ICD-10 - Z01.419)Clinical impressions discussed. Monthly SBE advised along with yearly mammograms. Colon and osteoporosis screening reviewed and ordered if indicated (see preventative tab below). I will contact pt. with the results of her pap testing and arrange follow up based on the results. 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 Take the Medrol Dosepak as prescribed until gone. Wear the Everette wrap for comfort and compression. Ice and elevate your foot 2-3 times a day you may continueto use the Voltaren cream as needed. Take Tylenol as needed for pain. Follow-up with your family physician if no improvement in 2 to 3 days [employer] Other 04-06-2023 Evaluation note* Encounter Date Diagnosis [...] trips for work that are coming up. [employer] Other 03-22-2023 Note [id number]:127[facility] 02-07-2023 Hospital Discharge instructions Patient Education 02/07/2023 13:45:47 Colonoscopy, Care After Surgery Salam (CUSTOM) Colonoscopy Care After Surgery Please read the instructions outlined below and refer to this sheet in the next few weeks. These discharge instructions provide you with general information on caring [facility] Your doctor may also give you specific [...] 08/03/2005 Document Revised: 02/22/2019 Document Reviewed: 02/22/2019 [employer] Patient Education 2020 [employer]. 02/07/2023 13:45:47 Hemorrhoids, Qvem-nn-Iryg Hemorrhoids Hemorrhoids are swollen veins that may [...] 3 times a day. General instructions Take boxh-bsy-duuwdum and prescription medicines only as told by [...] 08/16/2009 Document Revised: 11/15/2019 Document Reviewed: 03/29/2019 [employer] Patient Education 2020 [employer]. Follow Up Care 12/10/2022 15:05:12 With:Vishal WOODARD Address: [address] [place] [address]. [address] [place] [address] [facility] (1) When:1 to 2 weeks Comments:Call for any problems. Office will call to schedule follow up appointment. [facility]03-20-2023 Evaluation + Plan noteExtracted from: Title:ANES Post-operative Note - GeneralAuthor:Ellis Prescott Jr., DO GDate: 02/07/23 Plan Transfer/Discharge: Transfer/Discharge Discharge when meets criteria ( From PACU to Ambulatory Surgery Unit, and To home ). Extracted from:Title:ANES Pre-operative Note - EndoAuthor:Ellis Prescott Jr., DO GDate:02/07/23 Plan [place] [employer]esthesiologists (ASA) physical status classification: Class II. Anesthetic Preoperative Plan: Anesthesia General, and -TIVA.[facility]11-23-2021 Evaluation note* Encounter Date Diagnosis Assessment Notes Treatment Notes Treatment Clinical Notes Sep, Contact with and (lemos spected) exposure to other viral communicable diseases (ICD-10 [...] is performed too soon. It is recommended thateven if results are negative and you have been exposed to someone that has COVID that you follow current CDC recommendations. These can be found at CDC.GOV. Follow up with primary care provider if symptoms persist or do not improve Sep,easonal allergic rhinitis, unspecified trigger (ICD-10 - J30.2) Take medication as directed. Use saline nasal spray may help with symptom relief. Follow up with primary care provider if symptoms persist as a therapy plan may need to be made. Sep,Other Additional time spent conducting pre-visit phone call, screening for symptoms, instructions on social distancing, application and removal of PPE, and cleaning of examination room, equipment and supplies was preformed. Patient education given for testing methodology and results. Patient care instructions given in writting by [facility] Care At Home document. [facility] Other Evaluation + Plan note Future Appointments Appointment Date:02/07/2023 01:30:00 PM Scheduled Provider: Location:[facility] Appointment Type:Surgery FT [facility] HospitalEvaluation noteNo assessment information available [facility] Work Phone: Evaluation noteNo InformationNortNorristown State Hospital [facility] Other History general Narrative - Reported* Type Description Date Medical History Hyperlipidemia Medical HistoryAcid refluxSurgical Historyhip surgery as a child [employer] [facility] Other Hisavby general Narrative - Reported* Type Description Date Medical History Hyperlipidemia Medical HistoryAcid refluxMedical HistoryArthritisSurgical Historyhip surgery as a child [facility] Other Hospital course Narrative No data available for this section [facility] Discharge instructions No data available for this section [facility] HospitalProgress note No data available for this section [facility] Summary Purpose Family History Relationship Condition Age at Onset Recorded Date/T mary ann father Unknown motherFamily history of mental disorderUnknown Advance Directives Advance Directive Response Recorded Date/ Time Advance Directives No May 26 7:24pm Advance Directive Response Recorded Date/ Time Advance Directives No May 26 6:24pm Chief Complaint and Reason for Visit Chief Complaint cold with laryn Chief Complaint Admit Date Not Feeling Well October 15, 2024 8:31am Reoccuring Cough December 18, 2024 8 :35am Reason for Visit Admit Date Sinusitis, acute maxillary September 8:31am Chief Complaint Admit Date Sore throat March 27, 2025 6:24pm Additional Source Comments REASON FOR VISIT (unrecogniz ed section and content) #6 BLACK EQUINOX, SINUS X 2 DAYS, COVID Provider VisitCOVID Positive- [phone] FOOT ON TOP, THROBBING PAINmessagewellnessRefilllabs Patient Care team informatio n (unrecognized section and content) Team Status: Active Member Role Status Dates Yun Glover MD Primary Care Provider Active Team Status: Inactive Member Role Status Dates Yun Glover MD Primary Care Provider Active Camila Mcdonald NP-CAttending ProviderActive Team Status: Inactive Member Role Status Dates Yun Glover MD Attending Provider Active Team Status: Inactive Member Role Status Dates Yun Glover MD Primary Care Provider Active Start: June 10, 2024 End: June 10, 2024Antoinette Choudhury ProviderActiveStart: June 10, 2024 End: June 10, 2024 Team Status: Inactive Member Role Status Dates Yun Glover MD Primary Care Provide r, Attending Provider Active Start: October 15, 2024 End: October 15, 2024 Team Status: Inactive Member Role Status Dates Yun Glover MD Primary Care Provide r, Attending Provider Active Start: December 18, 2024 End: December 18, 2024 Team Status: Inactive Member Role Status Dates Yun Glover MD Primary Care Provider Active Start: March 27, 2025 End: March 27, 2025Antoinette Choudhury ProviderActiveStart: March 27, 2025 End: March 27, 2025 INFORMATION SOURCE (unrecogn ized section and content) DATE CREATED AUTHOR 02/25/2023 [facility] DATE CREATED AUTHOR AUTHOR'S ORGANIZ ATION 04/29/2023 [facility] DATE CREATED AUTHOR AUTHOR'S ORGANIZ ATION 11/11/2023 [facility] Goals (unrecognized section and content) Goals may [...] BE BASED ON THE PRIMARY CLINICAL RECORDS. [employer] [facility]. provides no warranty or guarantee of the accuracy or completeness of information in this document.
== END 2025-11-18 09:00 | disposition home or self-care (01) ==
PROVIDERS: PCP Family Medicine; Visit Provider Orthopaedic Surgery Orthopaedic Trauma
DX: M25.532 Pain in left wrist (principal); M85.88 Other specified disorders of bone density and structure, other site
CPT/HCPCS: 73110

== ENCOUNTER 2025-11-18 10:30 | Outpatient (OUT) | payer MEDICARE, SELFPAY ==
--- OUTSIDE RECORDS SUMMARY | 2025-11-18 05:25 | XMS_ITS | Continuity of Care Document ---
Author Organization [facility] Address [address] [place] [address] Phone Care Team Providers Care Appointment Coordinator Name Role Phone Yun Belcher MD Primary Care Provider Yun Belcher MD Attending Provider [phone] Rene Tafoya DO Attending Provider [phone] Care Teams Patient Care Team Team Status: Active Member Role/Relationship Status Dates Yun Belcher MD Primary Care Provider Active Visit Care Team Team Status: Inactive Member Role/Relationship Status Dates Yun Belcher MD Primary Care Provider Active Start: October 31, 2025 End: October 31, 2025Levy Cardenas ProviderActiveStart: October 31, 2025 End: October 31, 2025 Visit Care Team Team Status: Inactive Member Role/Relationship Status Dates Yun Belcher MD Attending Provider Active St art: October 31, 2025 End: October 31, 2025 Visit Care Team Team Status: Active Member Role/Relationship Status Dates Yun Belcher MD Attending Provider Active St art: November 09, 2025 Patient Care Team Team Status: Inactive Member Role/Relationship Status Dates Rene Tafoya DO Attending Provider Active S tart: November 18, 2025 End: November 18, 2025Jeancarlos Cardenas Care ProviderActiveStart: November 18, 2025 End: November 18, 2025 Chief Complaint and Reason for Visit Chief Complaint Admit Date Wellness/PAP October 31, 2025 8:29am Z01.419 October 31, 2025 8:53am 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 LT WRIST SPRAIN NX November 182024 9:34am Reason for Visit Admit Date Benign hypertension October 31, 2025 8:29am Hyperlipidemia October 31, 2025 8:29am Pain in metatarsus, bilateral October 212024 8:29am Sprain of carpometacarpal (CMC) joint of left hand October 31, 2025 8:29am Wellness examination October 31, 2025 8:29am Osteoarthritis of basilar joint of thumb November 18, 2025 9:34am Reason for Referral Type Reason(s) Provider Provider Contact Information P ceciliovider Address Start Date Sprain of carpometacarpal (CMC) joint of left hand S63.8X2A - Sprain of other part of left wrist and hand, initial encounterPain in metatarsus of both feet M89.8X7 - Other specified disorders of bone, ankle and footS63.8X2A - Sprain of other part of left wrist and hand, initial encounterFPG [facility] Phone: [phone] [facility] [address]Csfjyuuk 2024M89.8X7 - Other specified disorders of bone, ankle and footAuburnerLong Beach Doctors Hospitaler 2024 Allergies, Adverse Reactions, Alerts Allergen Type Severity Reaction Last Updated Verified Status No Known Allergies Allergy Unknown November 18, 2025 9:59amYesActive Social History Smoking Status Status Start Date End Date Date of Observa tion Ex-smoker (finding) June 10, 2024 11:42am Observation Status Observation Response Date of Response Legal Sex Female (finding) Sex Assigned At BirthFemalely 1954 Family History Relationship Condition Age at [...] March 27, 2025 6:05pm Unknown Ac tive Osteoarthritis of basilar diana int of thumb November 18, 2025 10:16am Unknown Active Inactive/Resolved Problems Problem Diagnosis/Recorded Date Onset Date [...] 2023 12:00amJune 2023 10:34amMeloxicam 15 mg tablet Discontinued0.ROUTE.FUEQKLR612Rivwz 2023 9:04amJune 2023 10:34amTAKE 1 TABLET BY MOUTH EVERY DAY FOR 30 DAYSAtorvastatin 20 mg tabletDiscontinued0 .ROUTE.WYVGKKT040Wqx 2023 11:40amMay 2024 10:40amTAKE 1 TABLET BY MOUTH EVERY DAYMeloxicam 15 mg tabletDiscontinued0.ROUTE.GHHFBTJ038Lnxl 2023 10:34amJuly 2023 9:00amTAKE 1 TABLET BY MOUTH EVERY DAY FOR 30 DAYS Pantoprazole 40 mg tablet,delayed release (DR/EC)Discontinued0.ROUTE.BYEAQGA845 May 14, 2024 10:34amMarch 2024 1:05pmTAKE 1 TABLET BY MOUTH EVERY DAY Meloxicam 15 mg tabletDiscontinued0.ROUTE.TXRECDW710Ivgi 2023 9:00am September 14, 2024 8:09pmTAKE 1 TABLET BY MOUTH EVERY DAY FOR 30 DAYSMeloxicam 15 mg tabletDiscontinued0.ROUTE.ZRPWMRS574Hdmqjoj 2023 8:09pmNovember 2023 10:31amTAKE 1 TABLET BY MOUTH EVERY DAY FOR 30 DAYSMeloxicam 15 mg tabletDiscontinued0.ROUTE.NRYWXUR152Kovzjtkd 2023 10:31amDecember 2023 8:02amTAKE 1 TABLET BY MOUTH EVERY DAY FOR 30 DAYSMeloxicam 15 mg tablet Discontinued0.ROUTE.OIYZRJO177Rukvyaxl 2023 8:02amMarch 2024 1:35pm TAKE 1 TABLET BY MOUTH EVERY DAY FOR 30 DAYSPantoprazole 40 mg tablet,delayed release (DR/EC)Discontinued0.ROUTE.IGNSZCG622KcikeJanuary 28, 2025 1:05pmSept2024 7:43amTAKE 1 TABLET BY MOUTH EVERY DAYMeloxicam 15 mg tablet Discontinued0.ROUTE.EQCKKMJ256AoeusFebruary 07, 2025 1:35pmJuly 2024 8:06amTAKE 1 TABLET BY MOUTH EVERY DAY FOR 30 DAYSAtorvastatin 20 mg tabletActive0.ROUTE .HNYBTXA996Piq2024 10:40amTAKE 1 TABLET BY MOUTH EVERY DAYComplies with drug therapyMeloxicam 15 mg tabletDiscontinued0.ROUTE.AYFEVOE548Sime2024 8:06amOctober 2024 11:53amTAKE 1 TABLET BY MOUTH EVERY DAY FOR 30 DAYS Pantoprazole 40 mg tablet,delayed release (DR/EC)Active0.ROUTE.JNLQZZZ212 July 24, 2025 7:43amTAKE 1 TABLET BY MOUTH EVERY DAYComplies with drug therapyMeloxicam 15 mg tabletActive0.ROUTE.JFIUHSH928Wkpakln2024 11:53am TAKE 1 TABLET BY MOUTH EVERY DAYComplies with drug therapyLosartan 50 mg tablet Jxagpp25LOLFZhcyp177Lahdhayj 2024 11:42amComplies with drug therapy Cholecalciferol (Vitamin D3) 25 mcg (1,000 unit) uwmzytJnbwiuwkghxm60XXQLMMpelg February 05, 2024 11:00pmJuly 2023 10:40amOmeprazole 20 mg capsule,delayed release(DR/EC)Wrorvswzdmxw44RQPDErmrxShgmm 2023 11:00pmJuly 2023 10:40amAspirin 81 mg tablet,delayed release (DR/EC)Prjehjhzhbny89DMEZLthwrKgzty 2023 11:00pmJuly 2023 10:40amMeloxicam 15 mg tvloguNykmgzmgvrye14EM PODailyMarch 2023 11:00pmMarch 2023 9:04amAtorvastatin 20 mg tablet Cilaswnzkuvt75HCFJMjnnlApppq 2023 11:00pmMay 2023 11:40amGuaifenesin (Mucinex) 600 mg tablet extended release 60qtCkqxqpjsubkd679FCALKfaon dailyJuly 2023 11:00pmNovember 2023 8:38amCalcium Carbonate 500 mg calcium (1,250 mg) zqouibOrbztl059ELKQExiegWnotvgvg 11th, 2025 12:00amComplies with drug therapyLoratadine (Allergy Relief (Loratadine)) 10 mg mphwzfXbztyy70NJBKAjigr October 31, 2025 12:00amComplies with drug therapyFluticasone Propionate (Flonase Allergy Relief) 50 mcg/actuation spray,nltpyjfstqMqvtbt4TZIAYSZMKSTGSKC DailyDece2024 12:00amadminister into each nostrilComplies with drug therapyLosartan 25 mg tqxydoMsnvqajqrxie04HZPLVcmnc922Yjjmghja 11th, 2025 12:00amDecember 2024 11:42amCefdinir 300 mg wjnbsgzZcwiiqenskmy006NSBN Twice fivnt382QirnetraOctober 15, 2024 12:00amJanuary 2024 8:43amBenzonatate 200 mg wuvmbqhHdwcmizlofjt629OBMA8-3 TIMES PER DAY as needed for qivft316 October 15, 2024 12:00amJanuary 2024 8:42amCoenzyme Q10 (Co Q-10) 10 mg uacqaebNxhgwt70CNLNQggxsJfj 6th, 2025 11:00pmComplies with drug therapy Immunizations Immunization Event Date Not Given Reason Dose Number [place] [employer] Lot Number Reason(s) Given Vaccine Information Statement (VIS) Detail Administration Location COVID-19 Josh Stewart ([employer]) May 11 influenza, unspecified formulationOctober 2017influenza, unspecified formulationDeceer 2020influenza, unspecified formulationFormerly [facility] 2021Tetanus, Diphtheria adult, 5 Lf pres free absOctober 2011 Relevant Diagnostic Tests and/or Laboratory Data Laboratory Results Test Collection Date/Time Result Date/Time Result Interpretation Reference Range Result Comment Performing Site Basophils # (Auto) November 09, 2025 7:06am November 09, 2025 7:06am 0.0 10 3/uL 0.0-0.1Cholesterol/HDL RatioNovember 09, 2025 7:06amNovember 09, 2025 7:06am 2.93.3 - 4.4 LOW RISK4.4 - 7.1 AVERAGE RISK7.1 - 11.0 MODERATE RISK>11.0 HIGH RISKAnion GapNovember 09, 2025 7:06amDe2024 7:06am11.7Basophils (%) (Auto)November 09, 2025 7:06amNovember 09, 2025 7:06am0.5 %0.2-2.0 Cholesterol LevelDe2024 7:06amNovember 09, 2025 7:56eh116 mg/dL <=200Albumin/Globulin RatioNovember 09, 2025 7:06amNovember 09, 2025 7:06am 1.1Eosinophils # (Auto)November 09, 2025 7:06amNovember 09, 2025 7:06am0.4 10 3/uL0.0-0.7HDL CholesterolNovember 09, 2025 7:06amDe2024 7:06am64 mg/dLAbove high rqiaxx52-21> or =60 mg/dl - LOW CARDIOVASCULAR RISK<40 mg/dl - HIGH CARDIOVASCULAR RISKAlbuminNovember 09, 2025 7:06amDe2024 7:06am3.6 g/dL3.4-5.0Eosinophils (%) (Auto)November 09, 2025 7:06am November 09, 2025 7:06am5.6 %0.9-7.0LDL Cholesterol, CalculatedNovember 09, 2025 7:06amDe2024 7:13vg480.0 mg/dL<100 mg/dl RDCWZDL078-207 mg/dl NEAR OR ABOVE KHPGPQI478-537 mg/dl BORDERLINE MZRI532-183 mg/dl HIGH>190 mg/dl VERY HIGHAlkaline PhosphataseDe 20th, 2025 7:06amNovember 09, 2025 7:06am92 U/K71-877KqzogbnvuqNscyggdp 20th, 2025 7:06amNovember 09, 2025 7:06am 42.7 %36.0-48.0Triglycerides LevelDe2024 7:06amNovember 09, 2025 7:06am79 mg/dL<=150Alanine Aminotransferase (ALT/SGPT)November 09, 2025 7:06am November 09, 2025 7:06am24 U/J43-50GhsioiylotNwwyuwff 20th, 2025 7:06am November 09, 2025 7:06am13.2 g/dL12.0-16.0VLDL CholesterolNovember 09, 2025 7:06amDe2024 7:06am15.8 mg/dLAspartate Amino Transf (AST/SGOT) November 09, 2025 7:06amDe2024 7:06am17 U/W89-22Lzbhzlcb Granulocyte # (Auto)November 09, 2025 7:06amNovember 09, 2025 7:06am0.02 10 3/uL0.00-0.03BUN/Creatinine RatioDe2024 7:06amDe2024 7:06am16.8Immature Granulocyte % (Auto)November 09, 2025 7:06amDe2024 7:06am0.3 %0.0-0.5Blood Urea NitrogenDe2024 7:06amNovember 09, 2025 7:06am16.0 mg/dL7.0-18.0Lymphocytes # (Auto)November 09, 2025 7:06amDe2024 7:06am2.6 10 3/uL1.2-3.8Calcium LevelDe2024 7:06amDe2024 7:06am9.0 mg/dL8.5-10.1Lymphocytes (%) (Auto) November 09, 2025 7:06amDece2024 7:06am38.3 %20.5-60.0Chloride LevelNovember 09, 2025 7:06amDece2024 7:90ko534 mmol/Q34-400Fpox Corpuscular HemoglobinDe2024 7:06amDe2024 7:06am27.7 pg26.7-34.0Carbon Dioxide LevelNovember 09, 2025 7:06amDe2024 7:06am30.3 mmol/L21.0-32.0Mean Corpuscular Hemoglobin ConcentNovember 09, 2025 7:06amDe2024 7:06am30.9 g/dL29.9-35.2CreatinineD2024 7:06amDe2024 7:06am0.95 mg/dL0.55-1.02Mean Corpuscular Volume November 09, 2025 7:06amDe2024 7:06am89.7 fL81.0-99.0Estimated GFR ()November 09, 2025 7:06amNovember 09, 2025 7:06am>60 >=60 mL/min/1.73m 2Monocytes # (Auto)November 09, 2025 7:06amNovember 09, 2025 7:06am0.4 10 3/uL0.3-0.8Estimated GFR (Non- AmericanDe2024 7:06amDece2024 7:31dx58Tiame low normal>=60 mL/min/1.73m 2 Monocytes (%) (Auto)November 09, 2025 7:06amDece2024 7:06am6.6 % 1.7-12.0GlobulinNovember 09, 2025 7:06amDe2024 7:06am3.2 g/dLMean Platelet VolumeNovember 09, 2025 7:06amDe2024 7:06am9.5 fL 9.5-13.5Glucose LevelNovember 09, 2025 7:06amDece2024 7:06am92 mg/cF82-378Oquubpmbrlk # (Auto)November 09, 2025 7:06amDece2024 7:06am3.2 10 3/uL1.4-6.5Potassium LevelNovember 09, 2025 7:06amDece2024 7:06am4.0 mmol/L3.5-5.1Neutrophils (%) (Auto)November 09, 2025 7:06am November 09, 2025 7:06am48.7 %43.0-75.0Sodium LevelDe2024 7:06am November 09, 2025 7:90rv230 mmol/X662-999Fvasqmpc CountDe2024 7:06amDe2024 7:74uy414 10 3/tQ634-918Silit BilirubinNovember 09, 2025 7:06amDece2024 7:06am0.4 mg/dL0.2-1.0Red Blood CountNovember 09, 2025 7:06amDece2024 7:06am4.76 10 6/uL4.20-5.40Total Protein November 09, 2025 7:06amDece2024 7:06am6.8 g/dL6.4-8.2Red Cell Distribution WidthNovember 09, 2025 7:06amDece2024 7:06am13.0 % 11.0-15.0Corrected White Blood CountDe2024 7:06amDe2024 7:06am6.7 10 3/uL4.0-11.0IG Pap w/Ct-Ng & HPV (Off-Site)October 31, 2025 8:53amDece2024 2:08pmNote.TESTS RESULT FLAG UNITS REF RANGE LAB Clinician Provided Cytology Information No. of containers..01 ThinPrep VialDIAGNOSIS: 01 NEGATIVE FORINTRAEPITHELIAL LESION OR MALIGNANCY.Specimen adequacy: 01 Satisfactory for evaluation. Endocervical and/or squamous metaplastic cells (endocervical component) are present.Performed by: 01 Mary Campo Opticianry Teacher ([facility]). 01Note: Note 01 The Pap smear is a screening test designed to aid in the detection of premalignant and malignant conditions of the uterine cervix. It is not a diagnostic procedure and should not be used as the sole means of detecting cervical cancer. Both false-positive and false-negative reports do occur.Test Methodology: Note 01 This liquid based ThinPrep(R) pap test wasinterpreted using the Unight(R) Swoon Editions(TM) Cervical Algorithm whole slide imaging system.. 01 The HPV DNA reflex criteria were not met with this specimen result therefore, no HPV testing was performe d. FLAG LEGEND: L- Low Normal,H-High Normal,LL-Alert Low,HH-Alert High <-Panic Low,>-Panic High,A-Abnormal,AA-Critical Abnormal-------- Performed at:[address] [facility] [id number] Argelia Stewart MD, SmqLlso trachomatis (LUIS) (LAB)October 31, 2025 8:53amDecemb2024 2:08pmNegativeNegativeLabCorp Neisseria gonorrhoeae (LUIS) (LAB)October 31, 2025 8:53amDecember 2024 2:08pmNegativeNegativePerformed at: [facility] - [facility] [address] [id number] Director: Argelia Stewart MD, Phone: [phone] at: =G - [facility] [address] [id number] Director: Argelia Stewart MD, Phone: [phone] Vital Signs Vital Reading Result Reference Range Collection Date/Time Height 67 [in_i] October 31, 2025 8:70klAutjjb50.25 kgDe[facility]2024 8:36amHeart Rate57 /awl02-485EcwvbpjnOctober 31, 2025 8:52amBP Rijejzaa700 mm[Hg]100-140Dece2024 8:52amBP Axvqtwyfx79 mm[Hg]60-100Decephoenix [facility] 2024 8:52amBMI (Body Mass Index)32.8 kg/q3Idvrllzj2024 8:30vzJzvaqj07 [in_i]November 18, 2025 9:53hcJystgs85.98 kgDehu [facility] 2024 9:58amBMI (Body Mass Index)32.1 kg/m2 November 18, 2025 9:58am Advance Directives Advance Directive Response Recorded Date/ Time Advance Directives No May 26 6:24pm Insurance Providers Guarantor Sharyn Oneil Address [address] [place] [address]Lluzalv Info.Home Phone: Coverage Status Update:2024 Payer Group Member ID Coverage Type Subscriber Relationship to Subscriber Effective Date Expiration Date Medicare J C [id number] Noe Id: [id number] [address] [place] [address] Home Phone: SelfAARP Health Claims Zina Hernandez Id: Plan [id number] Noe Id: [id number] [address] [place] [address] Home Phone: Self Encounters Encounter Location(s) Arrival/Admit Date Discharge/Departure Date Discharge/Departure Disposition Provider(s) Departed Physician/ Provider Office Visit -[facility] October 31, 2025 8:29am October 31, 2025 9:30am Discharged to home care or self care (routine discharge) Yun Belcher MD Departed Referred -[facility] October 31, 2025 8:53am October 31, 2025 8:54am Discharged to home care or self care (routine discharge) Yun Belcher MD Non-patient / Non-visit -[facility] 2024 7:06am [facility] 2024 9:34amDecember 2024 10:24amDischarged to home care or self care (routine discharge)Rene Tafoya , DO Recent Diagnosis Onset Date Admit Date Benign hypertension Unknown October 8:29am Hyperlipidemia Unknown October 31, 025 8:29am Pain in metatarsus, bilateral Unknown De cember 2024 8:29am Sprain of carpometacarpal (C MC) joint of left hand Unknown October 31, 2025 8:29am Wellness examination Unknown October 312024 8:29am Osteoarthritis of basilar joint of thumb Unknown November 18, 2025 9:34am Assessments Diagnosis Onset Date Resolution Status Admit Date Benign hypertension acuteDe2024 8:29amHyperlipidemiaacuteDece2024 8:29amPain in metatarsus, bilateralacuteDece2024 8:29amSprain of carpometacarpal (CMC) joint of left handacuteOctober 31, 2025 8:29amWellness examinationacuteOctober 31, 2025 8:29amOsteoarthritis of basilar joint of thumbacuteNovember 18, 2025 9:34am Plan of Treatment Author Yun Belcher [facility] 2024 6:34pmPersonalized health advice was given to the beneficiary to health education of preventative counseling services or programs aimed at reducing identified risk factors and improving self-management or community-based lifestyle interventions to reduce health risks and promote self-management and wellness, including physical activity and nutrition. check labs, continue atorvastatin check home bp readings agrees to ortho referral Agrees to podiatry referral Author Alie Martníez [facility] 2024 10:22amDiscussed with patient and company on the patient's symptoms, exam, and imaging. Likely etiologies of the patient's symptoms were discussed. Patient has symptoms consistent with left basilar thumb arthritis. We discussed various treatment options. Advised patient she could use Voltaren cream for pain at home and wear a brace for support when she is working. At this point we will pursue conservative management in the form of cortisone injections. We discussed an injection at this time and patient wishes to proceed. Under sterile condition, 0.5 cc of Kenalog/0.5 cc bupivacaine were injected into the left thumb. AAOS handout for thumb arthritis given to the patient. Patient tolerated the procedure well. Patient will follow-up in the future as needed for reevaluation. Future Tests Future scheduled test information is unavailable Pending Tests Test Name Ordered Date Scheduled Date XR wrist LT min 3V* November 15, 2025 11:55am Future Visits Future appointment information is unavailable Future Procedures Future procedure information is unavailable Future Medications Future medication information is unavailable Patient Instructions Patient instructions are unavailable
--- OUTSIDE RECORDS SUMMARY | 2025-11-18 10:34 | XMS_ITS | Clinical Summary ---
Author Organization [facility] Address [address] [facility] [place] [address] Care Team Providers Care Operating Cost Clerk Name Role Phone Unavailable Primary Care Provider Unavailabl e Social History Tobacco UseTypesPacks/DayYears UsedDateSmoking Tobacco: Never Assessed CommentsUnknownSex and Gender InformationValueDate RecordedSex Assigned at Not on fileLegal RobHqwbaq47/15/2023 6:41 PM EDTGender IdentityNot on fileSexual OrientationNot on file Last Filed Vital Signs Vital SignReadingTime TakenCommentsBlood Slujodjt110/8007 12:00 PM EDT Pulse--Temperature--Respiratory Rate--Oxygen Saturation--Inhaled Oxygen Concentration--Lwzrbw02.7 kg (200 lb)06/10/2020 12:00 PM DCUZeughd854.2 cm (5' 7 )06/10/2020 12:00 PM EDTBody Mass Index31.32006/10/2020 12:00 PM EDT Plan of Treatment Not on file
--- OUTSIDE RECORDS SUMMARY | 2025-11-18 10:37 | XMS_ITS | CCD ---
Author Organization [facility] CliniSyvt Care Team Providers Care Dirt Bike Racer Name Role Phone KamleshCabreraie Unavailable YUN GLOVER Primary Care Physician Vishal WOODARD Attending Unavailable Vishal WOODARD Referring [...] Unavailable ADALBERTO, DR YUN Tijerina Attending Unavailable TRAIL, DR SOLOMON Byrne Consulting Unavailable ADALBERTO, DR [...] reviewed by nurse or physiciaPropensity to adverse wucemutsw66-08-1753Cklbycr:[employer] Other (5 sources)Allergies ReconciledPropensity to adverse reactionsRush Memorial HospitalPaydiant Other Medications Current Medications MedicationDrug Class(es)DatesSig (Normalized)Sig (Original)Aspir-81 81 MG (7 sources)take 1 tablet by mouth once dailyAspir-81 81 MG 1 tablet Orally Once a day Activeatorvastatin 20 mg oral tablet (16 sources)HMG-CoA Reductase InhibitorStart: 04-02-2024 End: 21-19-7603ifag 1 tablet by mouth once dailyAtorvastatin 20 mg tablet Active 0 .ROUTE .COMPLEX 90 March 25, 2025 11:40am TAKE 1 TABLET BY MOUTH EVERY DAY Start: 02-06-2024 End: 30-09-7632ilpb 2 tablets by mouth once dailyAtorvastatin 20 mg tablet Discontinued 40 MG PO Daily February 06, 2024 12:00am April 02, 2024 12:40pm Start: 02-06-2024 End: 13-93-8317ptev 40 mg by mouth once dailyAtorvastatin Discontinued 40 MG PO Daily February 06, 2024 12:00am April 02, 2024 12:40pmStart: 56-29-9303buwl 1 tablet by mouth once daily at [...] tablet (2 sources)Histamine-2 Receptor AntagonistStart: 12-10-2022 End: 93-82-4657ehyq 1 tablet by mouth once daily at bedtimePepcid 20 mg Tab 20 mg = 1 tab(s), Oral, Once a day (at bedtime), X 90 day(s), # 90 tab(s), Refills( s) 0, Pharmacy: [facility]/pharmacy #[id number], 169, cm, 12/10/22 14:03:00 EST, Height/Length Dosing, 92.2, kg,12/10/22 14:03:00 EST, Weight Dosing Start Date: 12/10/22 Stop Date: 03/10/23 Status: Orderedmagnesium sulfate 225 MG / potassium chloride 188 MG / sodium sulfate 1479 MG Oral Tablet [Sutab] (1 source)Start: 88-48-6390fbez 1 tablet by mouth onceSutab oral tablet See Instructions, 1 EA, Refill(s) 0, BOB, Please follow instructions per packaging and physician's handout, [facility]/pharmacy #[id number], 169, cm, 12/10/22 14:03:00 EST, Height/Length Dosing,92.2, kg, 12/10/22 14:03:00 EST, Weight Dosing Start Date: 12/10/22 Status: Orderedmeloxicam 15 mg oral tablet (20 sources)Nonsteroidal Anti-inflammatory DrugStart: 02-06-2024 End: 95-68-2202ohva 1 tablet by mouth once dailyMeloxicam 15 mg tablet Active 0 .ROUTE .COMPLEX February 07, 2025 2:35pm TAKE 1 TABLET BY MOUTH EVERY DAY FOR 30 DAYSStart: 02-06-2024 End: 22-34-2871lkuv 1 tablet by mouth once dailyMeloxicam 15 mg tablet Discontinued 15 MG PO Daily February 06, 2024 12:00am February 06, 2024 10:04am take 1 tablet by mouth every twenty-four hoursMeloxicam 15 MG 1 tablet Orally Once a day for 30 days ActivemethylPREDNISolone 4 mg oral tablet (2 sources)CorticosteroidStart: 61-06-2006Urwbqz 4 MG as directed Orally As Directed for 6 days Jul, Activemontelukast 10 mg oral tablet (2 sources)Leukotriene Receptor AntagonistStart: 90-45-8931rzmq 10 mg by mouth once dailymontelukast 10 mg, Oral, Daily, Refills(s) 0, Allergy symptoms Start Date: 07/15/21 Status: Orderedpantoprazole 40 mg delayed release oral tablet (11 sources)Proton Pump InhibitorStart: 05-14-2024 End: 96-66-9195ajlg 1 tablet by mouth once dailyPantoprazole 40 mg tablet,delayed release (DR/EC) Active 0 .ROUTE .COMPLEX January 28, 2025 2:05pm TAKE 1 TABLET BY MOUTH EVERY DAYStart: 01-09-2024 End: 78-68-3232eodk 1 tablet by mouth once dailyPantoprazole 40 mg tablet,delayed release (DR/EC) Discontinued 40 MG PO Daily January 09, 2024 1:00am May 14, 2024 11:34amStart: 12-10-2022 End: 57-74-2952hada 1 tablet by mouth once dailyPantoprazole [address] Tab 40 mg = 1 tab(s), Oral, Daily, X 90 day(s), # 90 tab(s), Refills(s) 2, Pharmacy: [facility]/pharmacy #[id number], 169, cm, 12/10/22 14:03:00 EST, Height/Length Dosing, 92.2, kg, 12/10/2313:03:00 EST, Weight Dosing Start Date: 12/10/22 Stop Date: 09/06/23 Status: Orderedubidecarenone 10 mg oral capsule (1 source)Start: 04-88-1440Hsgnwrnl Q10 (Co Q-10) 10 mg capsule Active 10 MG PO Daily March 27, 2025 12:00am Completed/Discontinued Medications MedicationDrug Class(es)DatesSig (Normalized)Sig (Original)aspirin 81 mg delayed release oral tablet (5 sources)Platelet Aggregation Inhibitor, Nonsteroidal Anti-inflammatory Drug Start: 02-06-2024 End: 59-12-5435zmnv 1 tablet by mouth once dailyAspirin 81 mg tablet,delayed release (DR/EC) Discontinued 81 MG PO Daily February 06, 2024 12:00am June 10, 2024 11:40amStart: 37-62-7343uxkm 1 tablet by mouth once dailyaspirin 81 mg oral tablet 81 mg = 1 tab(s), Oral, Daily, Refills(s) 0, Prophylaxis Start Date: 02/15/13 Status: Orderedbenzonatate 200 mg oral capsule (2 sources)Non-narcotic AntitussiveStart: 10-15-2024 End: 29-66-9592Cbugyuvcgzs 200 mg capsule Discontinued 200 MG PO 2-3 TIMES PER DAY as needed for cough 2023 1:00am December 18, 2024 9:42am cefdinir 300 mg oral capsule (2 sources)Cephalosporin AntibacterialStart: 10-15-2024 End: 18-27-7454wthd 1 capsule by mouth twice dailyCefdinir 300 mg capsule Discontinued 300 MG PO Twice daily October 15, 2024 1:00am December 18, 2024 9:43amcholecalciferol 0.025 mg oral tablet (3 sources)Vitamin DStart: 02-06-2024 End: 61-97-4524ohoc 1 tablet by mouth once dailyCholecalciferol (Vitamin D3) 25 mcg (1,000 unit) tablet Discontinued 25 MCG PO Daily February 06, 2024 12:00am June 10, 2024 11:40amDocusate (7 sources)Doculase Not-Taking/PRNDoculase Not-TakingDoculase Rgdirm37 hr guaiFENesin 600 mg extended release oral tablet (3 sources)Start: 06-10-2024 End: 40-57-7693ogjn 1 tablet by mouth twice daily, then take 1 tablet by mouth every twelve hoursGuaifenesin (Mucinex) 600 mg tablet extended release 12hr Discontinued 600 MG PO Twice daily June 10, 2024 12:00am October 15, 2024 9:38amomeprazole 20 mg delayed release oral capsule (10 sources)Proton Pump InhibitorStart: 02-06-2024 End: 27-19-2080udox 1 capsule by mouth once dailyOmeprazole 20 mg capsule,delayed release(DR/EC) Discontinued 20 MG PO Daily February 06, 2024 12:00am June 10, 2024 11:40amtake 1 capsule by mouth once dailyPriLOSEC 20 MG 1 capsule Orally Once a day Activepaxlovid (300/100) 20 x 150 mg & 10 x 100mg tablet therapy pack (3 sources)Start: 90-39-8037agqd 3 tablets by mouth every twelve hoursPaxlovid (300/100) 20 x 150 MG & 10 x 100MG 3 tablets Orally Twice a day for 5 days Feb, Not-Taking/PRNtriamcinolone acetonide 40 mg/ml injectable suspension (6 sources)CorticosteroidStart: 60-75-9064Bntoilt-40 May, 40 mgVitamin D 1000 UNIT (7 [...] Tablet) } Pack [Paxlovid 5-Day] (3 sources)Start: 85-64-3273does 3 tablets by mouth every twelve hoursPaxlovid (300/100) 20 x 150 MG & 10 x 100MG 3 tablets Orally Twice a day for 5 days Feb, Not-TakingStart: 19-53-7595yjpy 3 tablets by mouth every twelve hours Paxlovid (300/100) 20 x 150 MG & 10 x 100MG 3 tablets Orally Twice a day for 5 days Feb, Active Problems Active Problems Problem ClassificationProblemDateDocumented DateEpisodic/ChronicCoagulation and hemorrhagic disorders (5 sources)Spontaneous ecchymosis; Translations: [Spontaneous ecchymoses] EpisodicDisorders of lipid metabolism (10 sources)Hyperlipidemia; Translations: [Hyperlipidemia, unspecified]Chronic Diverticulosis and diverticulitis (2 sources)Xfvscqdlnuidxm91-29-4112PhabuoyD Codes: Struck by; against (1 source)Walked into furniture, initial encounter; Translations: [WALKED INTO FURNITURE INITIAL ENC]Onset: 71-85-2578KpibhdknKfjwhbmnox disorders (13 sources)Gastroesophageal reflux disease; Translations: [GERD [Gastroesophageal reflux disease]]50-17-8017LvpkeygCikbcibpm and duodenitis (2 sources)Chronic fykuwqlua49-78-4479PmdookiMuhykrhwaxk (2 sources)Yqaznluyknk21-83-0440MangxwdyPknqu disorders and dislocations; trauma-related (6 sources)Patellofemoral stress syndrome; Translations: [Patellofemoral disorders, right knee]ChronicOsteoarthritis (5 sources)Primary osteoarthritis, left ankle and foot; Translations: [Osteoarthritis of left foot]ChronicOther aftercare (1 source)FDC (current) use of aspirin; Translations: [CUSTODIAL CURRENT USE OF ASPIRIN]Onset: 64-81-0146XcloxmpiQezsl and unspecified benign neoplasm (6 sources)History of polyp of aognw91-53-9587LxaioxjyJjkhq and unspecified benign neoplasm (3 sources)Polyp of colon; Translations: [Polyp of colon]Onset: 02-07-2023 26-56-8561IewqcaiwDolvi circulatory disease (2 sources)Feeling of lump in bredga78-79-3488KffewfbzYhtwf connective tissue disease (3 sources)Other specified soft tissue disorders; Translations: [OTHER SPEC SOFT TISSUE DISORDERS]Onset: 73-93-7434HnrhcqdbLbqiq connective tissue disease (1 source)Pain in left footEpisodicOther gastrointestinal disorders (2 sources)Abdominal wind trld36-01-9355XyyzfwnxUmrxt gastrointestinal disorders (2 sources)Lnugkdyfu51-31-0096VzhwjikyFkike lower respiratory disease (6 sources)Chronic cough; Translations: [Chronic cough]86-40-6004PruraxpzXviio non-traumatic joint disorders (5 sources)Arthralgia of the lower leg; Translations: [Pain in right knee] EpisodicOther nutritional; endocrine; and metabolic disorders (5 sources)Obese class I; Translations: [Body mass index (BMI) 31.0-31.9, adult] ChronicOther screening for suspected conditions (not mental disorders or infectious disease) (5 sources)Encounter for screening mammogram for malignant neoplasm of breast; Translations: [ENC SCR MAMMO MALIG NEOPLASM BREAST]Onset: 31-07-0537Phjzqhvx Other upper respiratory disease (12 sources)Seasonal allergic rhinitis; Translations: [Other seasonal allergic rhinitis]ChronicOther upper respiratory disease (1 source)Other seasonal allergic rhinitisOnset: 10-13-2021 Resolved: 37-24-9033EfeaqclQvekz upper respiratory disease (5 sources)Allergic rhinitis; Translations: [Allergic rhinitis, unspecified] ChronicOther upper respiratory infections (11 sources)Acute maxillary sinusitis; Translations: [Acute recurrent maxillary sinusitis]Onset: 907785-56-6254KnnbggzgPkarcgem codes; unclassified (2 sources)Family history of cancer of rzvik76-07-0749NyvlfyleDwigvxqc codes; unclassified (2 sources)Family history of polyp of -87-6982UfjbaceuAwtzckoc codes; unclassified (5 sources)Family history of breast [...] dependence; Translations: [PERSONAL HISTORY OF NICOTINE DEPEND]Onset: 88-36-7519ThjzvuloHzvkiohtwdc injury; contusion (1 source)Contusion of right lower leg, initial encounter; Translations: [CONTUSION RIGHT LOWER LEG INITIAL]Onset: 10-46-3698TqbmhkxsLsncepzhcefu (1 source)Encounter for screening for malignant neoplasm of cervix; Translations: [Encounter for screening for malignant neoplasm of cervix]Onset: 59-18-0320Eyktiqxuekno (1 source)Pain in left foot; Translations: [Pain in left foot]Onset: 08-06-2023 Past or Other Problems Problem ClassificationProblemDateDocumented DateEpisodic/ChronicAcute bronchitis (5 sources)Acute bronchitis; Translations: [Acute bronchitis, unspecified]Onset: 83-17-1001NfubajexBpkpplmswr associated with dizziness or vertigo (5 sources)Benign paroxysmal positional vertigo; Translations: [Benign paroxysmal positional vertigo]Onset: 75-75-5693HjjlesfoQawmqmhxji disorders (1 source)Esophageal disordersImmunizations and screening for infectious disease (6 sources)Contact with and (suspected) exposure to other viral communicable diseases; Translations: [Vaccination given]Onset: 09-14-2018 Resolved: 19-75-6654EtjwerlgZqrkfav (5 sources)Candidiasis; Translations: [Candidiasis, unspecified]Onset: 48-19-4132GokielamAiqtm connective tissue disease (1 source)Myalgia/myositis - multiple; Translations: [Unspecified myalgia and myositis]Onset: 83-77-5300PfabhfgsGutqh connective tissue disease (5 sources)Hand pain; Translations: [Pain in unspecified hand]Onset: 12-25-2013 EpisodicOther connective tissue disease (5 sources)Spasm; Translations: [Spasm of muscle]Onset: 35-54-8557FagpxrzgVxokn connective tissue disease (4 sources)Muscle pain; Translations: [Unspecified myalgia and myositis]Onset: 25-04-1351LmsjvvcqAqfyc non-traumatic joint disorders (5 sources)Shoulder joint pain; Translations: [Pain in joint, shoulder region] Onset: 07-61-4420VxcfnskeOoijq upper respiratory disease (5 sources)Bleeding from nose; Translations: [Epistaxis]Onset: 09-14-2018 EpisodicResidual codes; unclassified (1 source)Family history of malignant neoplasm of breast; Translations: [FAMILY HX MALIG NEOPLASM OF BREAST]Onset: 51-13-8553BarvyjqsBszwqhtc codes; unclassified (1 source)Family history of malignant neoplasm of digestive organs; Translations: [FAM HX MALIG NEOPLASM DIGESTIV ORGN]Onset: 52-27-9201Dznkvfzv Residual codes; unclassified (1 source)Family history of malignant neoplasm of other organs or systems; Translations: [FAM HX MALIG NEOPLASM OTH ORGN/SYS]Onset: 82-78-4008Neaetyxe Urinary tract infections (5 sources)Acute cystitis; Translations: [Acute cystitis]Onset: 09-10-2015 EpisodicViral infection (1 source)COVID-19 Results Test NameValueInterpretationReference RangeFacilityIGP,Aptima HPV,Age Gdlnon 77-32-2187Zve Image GuidedNoteNormal.Green Cross HospitalComment on above:Order Comment: COLLECTION TECHNIQUE:: BROOM-ALONE GYNOCOLOGICAL BODY SITE:: CERVIX ENDOCERVIXResult Comment: TESTS RESULT FLAG UNITS REF RANGE LAB Clinician Provided Cytology Information Source.............Cervix;Endocervix No. of containers..01 ThinPrep Vial Age Algo ACOG Allyn... Note 01 <21 or >65 or no age provided FLAG LEGEND: L-Low Normal,H-High Normal,LL-Alert Low,HH-Alert High <-Panic Low,>-Panic High,A-Abnormal,AA-Critical Abnormal Performed at: 01 =G [facility] [place] [address] Argelia Stewart MD, Krxolefkx By: #### PAP [id number] #### [facility] ,Result Comment: TESTS RESULT FLAG UNITS REF RANGE LAB DIAGNOSIS: 02 NEGATIVE FOR INTRAEPITHELIAL LESION OR MALIGNANCY. CELLULAR CHANGES ASSOCIATED WITH ATROPHY ARE PRESENT. Specimen adequacy: 02 Satisfactory for evaluation. Endocervical component may not be distinguished in cases of atrophy. Performed by: 02 [place], [place] Former ([facility]) . 02 Note: Note 02 The Pap [...] <-Panic Low,>-Panic High,A-Abnormal,AA-Critical Abnormal Performed at: [address] [address] Argelia Stewart MD, Performed at: =G - [facility] [address] [id number] Senior Integration Architect: Argelia Stewart MD, Phone: [phone] Performed at: - [facility] [address] [id number] Senior Integration Architect: Argelia Stewart MD, Phone: [phone] PERFORMED BY: [facility] [address] [facility] SHOREJesús [place] [id number] PATHOLOGIST RESIDENCE SUPERVISOR ROSALAB SONI M.D.XR foot LT min 3V*on 21-33-0397VF foot LT min 3V*[facility] [employer] Other XR foot LT min 3V*[facility] [employer] Other XR foot LT min 3V*[address] [place] [address] [employer] Other XR foot LT min 3V*[facility] [employer] Other XR foot LT min 3V*[facility] [employer] Other XR foot LT min 3V*[facility] [employer] Other XR foot LT min 3V*Patient: Sharyn Riggs MR#: [id number] [facility] [employer] Other XR foot LT min 3V*: 1955 Acct:[id number] [employer] Other XR foot LT min 3V*Age/Sex: 68 / F ADM Date: 08/06/23 [facility] [employer] Other XR foot LT min 3V*Loc: XDUCLY Room: Type: REG CLINorth [employer] Other XR foot LT min 3V*Attending Dr: Camila WINSLOW [facility] [employer] Other XR foot LT min 3V*Copies to: GOLDY Broderick [facility] [employer] Other XR foot LT min 3V*Ordering Provider: [facility]ickSt[facility] [employer] Other XR foot LT min 3V*Date of Service: 08/06/23[place] [employer] Other XR foot LT min 3V* XR/XR foot LT min 3V*: LEFT FOOT PAINHamersville [employer] Other XR foot LT min 3V*XR foot LT min 3V* 08/06/2023 11:23 [facility] [employer] Other XR foot LT min 3V*SIGNS AND SYMPTOMS: Left foot pain along the dorsum of the left foot/metatarsals for 3 weeksHamersville [employer] Other XR foot LT min 3V*PROTOCOL: Frontal, lateral, and oblique radiographs of the left footHamersville [employer] Other XR foot LT min 3V*COMPARISON: [facility] [employer] Other XR foot LT min 3V*FINDINGS:[employer] Other XR foot LT min 3V*The bones are in anatomic alignment. There is no fracture or dislocation. Degenerative changes [facility] [employer] Other XR foot LT min 3V*noted throughout the midfoot with mild soft tissue swelling over the dorsum of the midfoot. [facility] [employer] Other XR foot LT min 3V*plantar and Achilles surface calcaneal spurring is noted.[employer] Other XR foot LT min 3V* XR/XR foot LT min 3V*[employer] Other XR foot LT min 3V*IMPRESSION:[employer] Other XR foot LT min 3V*No acute bony injury.[employer] Other XR foot LT min 3V*Degenerative changes are noted in the midfoot with soft tissue swelling over the dorsum of [employer] Other XR foot LT min 3V*midfoot.[employer] Other XR foot LT min 3V*Impression dictated by: Jay Bowling M.D.08/06/2023 11:49 [facility] [employer] Other XR foot LT min 3V*Dictation Location: HRTSF-NN-07Dttmz [employer] Other XR foot LT min 3V*Transcribed By: NICKY 08/06/23 [facility] [employer] Other XR foot LT min 3V*Dictated By: Jay Bowling II, MD 08/06/23 [facility] CenterMer[facility] Other XR foot LT min 3V*Signed By:[employer] Other XR foot LT min 3V*08/06/23 [facility] Center[facility] Other XR foot LT min 3V*[facility] [place] [address] XRay Report Signed Patient: Sharyn Riggs MR#: [id number] : 1955 Acct:[id number] Age/Sex: 68 / F ADM Date: 08/06/23 Loc: XDUCLY Room: Type: [facility] CLI Attending Dr: Camila WINSLOW Copies to: [...] Jay Bowling M.D.08/06/2023 11:49 AM Dictation Location: [place] [address] Transcribed By: [facility] 08/06/23 1149 Dictated By: Jay Bowling II, MD 08/06/23 1147 Signed By: 08/06/[address] [facility] Medical CenterPostoperative Documentson 28-89-4602Tsqhgptjfwuct Documents [id number]#1.00CD:127[facility] HospitalPatient Letter FTon 12-26-3293Tnrgcwg Letter [facility] February 15, 2023 SHARYN RIGGS [address] [place] [address] SHARYN RIGGS 1955 Below is a summary [...] reminder letter prior to your next duedate. [facility] [phone] 14-21-6819Ruowkgnjc From: Elisabeth Beck I To: [facility] - Reminders/Recalls; Sent: 02/15/2023 14:22:52 EDT Show up: 12/10/2027 14:22:00 EST Subject: Colonoscopy Recall Due Date/Time: 02/08/2028 14:22:00 EDT Reminder/Recall 5 year colon recall 02/08/2028 Dr. [facility]jeeGe[facility] HospitalIntraOperative Documentson 02-11-2023 IntraOperative [id number]#1.00CD:127 [facility] HospitalCoding Summary.on 78-75-0809Scbnpv Summary. CD:002565Abmb84BIx5lNp+PGhlYWQ+XS1MLEHhN83yyFIvbY3dK2WTGAwHKbsjATVNLKuJJwUhwgKlA S8trPMxXWUi [file] LhMgf1pf (more content not included)...[facility] HospitalMain OR Intraoperative Recordon 07-98-2637Fjok OR Intraoperative RecordIntraOp Document Type FT Summary Primary Physician: Vishal WOODARD MD Finalized Date/Time: 02/10/23 07:41:19 Pt. Name: SHARYN RIGGS/Sex: 1955 Female Med Rec #: [id number] Physician: Vishal WOODARD MD Financial #: [id number] Pt. Type: O Room/Bed: / Admit/Disch: 02/07/23 [...] MCDONNELL, Huong PENA, Ann Irizarry Role Performed PRODUCT MANAGER FINANCIAL SERVICES Chief Clinical Officer - Primary Staff - Other Time In [...] and tissue Entry 1 Skin Integrity Intact, [place], Warm, and Skin Abnormality No Dry Outcomes [...] 1 Procedure COLONOSCOPY( (more content not included)...NormalFisher [facility] Western MarylandConsenton 08-08-2695Wkqcwym [id number]#1.00CD:127NormChillicothe VA Medical CenterDischarge Instructionson 24-79-8319Fpytpybgi Instructions [id number]#1.00CD:127NoOhioHealth Riverside Methodist HospitalConsent for Treatmenton 10-51-8732Idcgoph for Treatment [id number]#1.00CD:127NoOhioHealth Riverside Methodist HospitalEndoscopic Procedure Report - Otheron 30-62-9010Wceupzhylc Procedure Report - OtherPatient: SHARYN RIGGS Age: [...] mucosal bridge noted, 1 cm, [facility] Comment on above:Result Comment: Electronically Signed By: SAMIR ZAMUDIO, Vishal\.br\Date and Time Signed: 02/07/23 14:08 EDTOther Comment: Missing Attachment - attachment storage system not supported [id number] Can be viewed in source system Missing Attachment - attachment storage system not supported [id number] Can be viewed in source systemMissing Attachment - attachment storage system not supported [id number] Can be viewed in source systemMissing Attachment - attachment storage system not supported [id number] Can be viewed in source systemMissing Attachment - attachment storage system not supported [id number] Can be viewed in source systemMain OR PACU I Recordon 22-55-8399Mxrp OR PACU I RecordPACU Phase I Document Type FT Summary Primary Physician: Vishal WOODARD MD Finalized Date/Time: 02/07/23 14:20:26 Pt. Name: SHARYN RIGGS [place]/Sex: 1955 Female Med Rec #: [id number] Physician: Vishal WOODARD MD Financial #: [id number] Pt. Type: O Room/Bed: / Admit/Disch: 02/07/23 [...] By: Stephanie Bustillo I 02/07/23 14:20NormalSelect Medical [facility] Hospital - DublinMain OR Preoperative Recordon 56-98-7089Otlb OR Preoperative RecordHolding Area Document Type FT Summary Primary Physician: Vishal WOODARD MD Finalized Date/Time: 02/07/23 12:51:47 Pt. Name: SHARYN RIGGS /Sex: 1955 Female Med Rec #: [id number] Physician: Vishal WOODARD MD Financial #: [id number] Pt. Type: O Room/Bed: / Admit/Disch: 02/07/23 [...] Signatures Signed By: Mak Scott RN 02/07/23 12:51NormChillicothe VA Medical CenterMonitor Recordon 28-93-8892Kqtvyzf Record [id number]:127NoianSelect Medical Ohiohealth Rehabilitation Hospital - DublinMonitor [id number]:127Normdandre [facility] - DublinProgress Note-Physicianon 22-24-9443Cugygjng Note-PhysicianPatient: SHARYN RIGGS Age: 67 years Sex: Female : 1955 Associated Diagnoses: None Author: Ellis Prescott Jr., DO Postoperative Information Postoperative disposition: Postoperative disposition: Home. Optimetrix number: Optimetrix number [id number]. Anesthetic utilized: General. Physical Examination Vital Signs [...] to Ambulatory Surgery Unit, and To home ).[facility] Comment on above:Result Comment: Electronically Signed [...] # 90 tab(s), Refills(s) 2, Pharmacy: [facility]/pharmacy #[id number], 169, cm, 12/10/22 14:03:00 EST, Height/Length Dosing, 92.2, kg, 12/10/22 14:03:00 EST, Weight Dosing Pepcid 20 mg Tab: 20 mg = 1 tab(s), Oral, Once a day (at bedtime), X 90 day(s), # 90 tab(s), Refills(s) 0, Pharmacy: [facility]/pharmacy #[id number], 169, cm, 12/10/22 14:03:00 EST, Height/Length Dosing, 92.2, kg, 12/10/22 14:03:00 EST, Weight Dosing Sutab oral tablet: See Instructions, 1 EA, Refill(s) 0, BOB, Please follow instructions per packaging and physician's handout, [facility]/pharmacy #[id number], 169, cm, 12/10/22 14:03:00 EST, Height/Length [...] All Problems Chronic gastritis / SNOMED CT 06605061 / Confirmed Colon polyps / SNOMED CT 067721495 / Confirmed Diverticulitis / SNOMED CT 581061710 / Confirmed Encounter for colonoscopy due to history of colonic polyp / SNOMED CT 1314069769 / Confirmed Family history of colon cancer / SNOMED CT 960218651 / Confirmed Family history of colonic polyps / SNOMED CT 3981721080 / Confirmed Gas pain / SNOMED CT 630665692 / Confirmed Heartburn / SNOMED CT 77740659 / Confirmed Hemorrhoids / SNOMED CT 588570653 / Confirmed History of colon polyps / SNOMED CT 2245004357 / Confirmed History of rectal polyps / SNOMED CT 9902016892 / Confirmed Obesity / ICD-9-CM 278.00 / Possible Sensation of lump in throat / SNOMED CT 396766929 / Confirmed Histories Past Medical History: No active or resolved past medical history items have been selected or recorded. Procedure history: Esophagogastroduodenoscopy and biopsy (5029120487) on 08/31/2021 at 66 Years. Colonoscopy (906725130) on 09/24/2019 at 64 Years. Tonsillectomy (680210701). Social History Social & Psychosocial Habits Alcohol [...] Respirations are non-labored. Cardiovascular: Regular rhythm. Plan [place] Society of Anesthesiologists (ASA) physical status classification: Class II. Anesthetic Preoperative Plan: Anesthesia General, and -TIVA.[facility]sworth-Rittman HospitalComment on above:Result Comment: Electronically Signed By: Ellis Prescott Jr., DO.clem\Date and Time Signed: 02/07/23 12:30 EDTCoding Summary.on 01-76-7326Iwvxvg Summary. CD:[id number]:[id number]+PGhlYWQ+AK0WBFGyC29srDJknB2AJ3oMZB6DHDPGKPZWRT7WQG9uv OZ1PYrqC7RxryHk [file] Y29s (more content not included)...[facility]-Rittman HospitalConsent for Procedure/Surgeryon 97-25-1044Mffeffz for Procedure/Surgery [id number]#1.00CD:127NormChillicothe VA Medical CenterAmbulatory Visit Summaryon 37-74-4432Wkinelyykk Visit Summary SHARYN RIGGS :1955 Visit Date:12/10/2022 [...] Follow-Up Appointments Tuesday 1:30 PM EDT Where: [facility] You Need to Schedule the Following Appointments Follow Up with Racheal Macias CNP When: Within 1 to 2 weeks Comments: Following colonoscopy. Where: Medications What How Much When Why Instructions New famotidine (Pepcid 20 mg Tab) 1 Tablets By Mouth Once a day (at bedtime) Heartburn Duration: 90Days Pickup at [facility]/pharmacy #6148 New magnesium sulfate/ potass Cl/ sodium sulf (Sutab oral tablet) See instructions Please follow instructions per packaging and physician's handout Pickup at [facility]/pharmacy #[id number] Changed pantoprazole (Pantoprazole [address] Tab) 1 Tablets By Mouth Every day Heartburn Duration: 90 Days Pickup at [facility]/pharmacy #6177 Unchanged aspirin (aspirin 81 mg oral tablet) 1 Tablets By Mouth Every day Contact prescribing physician if questions or concerns Unchanged atorvastatin (Lipitor 10 mg Tab) 1 Tablets By Mouth Once a day (at bedtime) Contact prescribing physician if questions or concerns Unchanged montelukast 10 Milligram By Mouth Every day Contact prescribing physician if questions orconcerns Pharmacy Information [facility]/pharmacy #[id number]: [address], [place] [id number] [phone] Allergies No Known Allergies Problems Ongoing - [...] including vitamins, herbs, eye drops, creams, and emvh-eva-zraewco medicines. ? Any problems you or family [...] colon: ? (more content not included)...NormalSelect Medical [facility] Rehabilitation Hospital - DublinBMPon 12-10-2022 Anion gap [Moles/Vol]9 mmol/LNormal6-16[facility] Hospital - DublinComment on above:Performed By: #### [id number], [id number], 4086455, [id number] ####[facility] [address] [place], [place] [address]Amclpbl [Mass/Vol]9.4 mg/dLNormal8.9-11.1FNorwalk Memorial HospitalComment on above:Performed By: #### [id number], 8052518, 8240567, [id number] ####[facility] [address] [place], [place] [address]Hxwjvqbg [Moles/Vol]108 mmol/LNormal 101-111[facility] Hospital - DublinComment on above:Performed By: #### [id number], 5165498, [id number], [id number] ####[facility] [address] [place], [place] [address]PD1 [Moles/Vol]29 mmol/SRcchqn46-80IgmsgfSelect Medical Ohiohealth Rehabilitation Hospital - DublinComment on above:Performed By: #### 1409327, 1471923, 3679567, [id number] ####[facility] [address] [place], [place] [address]Fdvfixhpbh [Mass/Vol]0.8 mg/dLNormal0.5-1.3FNorwalk Memorial Hospital Comment on above:Performed By: #### 0854981, 3582068, 7883050, [id number] ####[facility] [address] [place] [address] Glucose [Mass/Vol]72 mg/hRLpyejv71-924HugscaSelect Medical Ohiohealth Rehabilitation Hospital - DublinComment on above:Result Comment: If this glucose result represents a fasting glucose, interpretation should refer tothe following reference range: 55-99 mg/dL Performed By: #### 6303886, 1139374, 1682865, 08586704 ####[facility] [address] [place], [place] [address]Ggxxqvecm [Moles/Vol]4.0 mmol/LNormal3.5-5.3FNorwalk Memorial HospitalComment on above:Performed By: #### 4902447, 4289777, 8041207, 69450889 ####[place] [place], [place] [address]Efhuyx [Moles/Vol]142 mmol/LNormal 135-145[facility] Hospital - DublinComment on above:Performed By: #### 7298952, 7120742, 1739353, [id number] ####[facility] [address] [place], [place] [address]Qbzy nitrogen [Mass/Vol]17 mg/dLNormal5-21[facility] Hospital - DublinComment on above:Performed By: #### 8926178, 7528958, 0116153, 64390450 ####[facility] [address] [place], [place] [address]Xipx nitrogen/Creatinine [Mass ratio]21 No GekpuNqtm73-87 [facility] Hospital - DublinComment on above:Performed By: #### 5681683, 5561433, 7216173, 59286948 ####[facility] [address] [place], [place] [address]HJKKAEENQEhjojei By: SYSTEM SYSTEM on 88-27-3841Cuiyh gap [Moles/Vol]9 mmol/LNormal6 - 16 mEq/LFTMC RemisolCalcium [Mass/Vol]9.4 mg/dL Normal8.9 - 11.1 mg/dLFTMC RemisolChloride [Moles/Vol]108 mmol/BRkzcjd965 - 111 mmol/LFTMC RemisolCO2 [Moles/Vol]29 mmol/BRsnzao58 - 31 mmol/LFTMC Remisol Cobalamin (Vitamin B12) [Mass/Vol]209 pg/xPUjnsvn41 - 1500 pg/mLFTMC Remisol Creatinine [Mass/Vol]0.8 mg/dLNormal0.5 - 1.3 mg/dLFTMC RemisolGFR/1.73 sq M.predicted among blacks MDRD (S/P/Bld) [Vol rate/Area]mL/min/1.73 h1Vahbwx >=59mL/min/1.73 m2FTMC Chem SGFR/1.73 sq M.predicted among non-blacks MDRD (S/P/Bld) [Vol rate/Area]mL/min/1.73 n2Jgpzgj>=59mL/min/1.73 m2FTMC Chem S Glucose [Mass/Vol]72 mg/gREjorti37 - 199 mg/dLFTMC RemisolMagnesium [Mass/Vol] 2.1 mg/dLNormal1.3 - 2.4 mg/dLFTMC RemisolPotassium [Moles/Vol]4.0 mmol/LNormal 3.5 - 5.3 mmol/LFTMC RemisolSodium [Moles/Vol]142 mmol/TQsmlux075 - 145 mmol/L FT RemisolUrea nitrogen [Mass/Vol]17 mg/dLNormal5 - 21 mg/dLFTMC RemisolUrea nitrogen/Creatinine [Mass ratio]21 mg/jfMtal36 - 20FTMC RemisolConsent for Treatmenton 64-05-1930Yepoijq for Treatment [id number]#1.00CD:127NormalLex [facility] MarylandGastroenterology Office/Clinic Noteon 38-06-8922Jwaykbpesyxmdrbi Office/Clinic NoteChief Complaint Colonoscopy recheck. HPI Staff [...] # 90 tab(s), Refills(s) 0, Pharmacy: [facility]/pharmacy #[id number], 169, cm, 12/10/22 14:03:00 EST, Height/Length Dosing, 92.2, kg, 12/10/22 14:03:00 EST, Weight Dosing pantoprazole, 40 mg = 1 tab(s), Oral, Daily, X 90 day(s), # 90 tab(s), Refills(s) 2, Pharmacy: [facility]/pharmacy #[id number], 169, cm, 12/10/22 14:03:00 (more content not included)...NormalFisher Upmc Western MarylandComment on above:Result Comment: Electronically Signed By: Racheal Macias CNP\.br\Date and Time Signed: 12/10/22 14:51 ESTMagnesiumon 70-63-3878Ifkxxfzky [Mass/Vol]2.1 mg/dL Normal1.3-2.4Fisher Upmc Western MarylandComment on above:Performed By: #### [id number], 7619779, 1982254, [id number] ####[facility] [address] [place], [place] [address]Vqnkupp Educationon 33-04-2313Prfzqpd EducationRadiology Colonoscopy, Adult A colonoscopy is an [...] including vitamins, herbs, eye drops, creams, and wvni-iip-utmabpu medicines. ? Any problems you or family [...] air t (more content not included)...NormalSelect Medical Ohiohealth Rehabilitation Hospital - DublinVit B12on 27-34-9087Gromppgwa (Vitamin B12) [Mass/Vol]209 pg/rACmfong30-9456TsqvsrSelect Medical Ohiohealth Rehabilitation Hospital - DublinComment on above:Performed By: #### 8928643, 2148939, 3569405, [id number] ####[facility] [address] [place], [place] [address]wDCXia 56-82-1158AZX/1.73 sq M.predicted among blacks MDRD (S/P/Bld) [Vol rate/Area]mL/min/{1.73_m2}Normal>=59[facility] Hospital - DublinComment on above: Order Comment: Order added by Discern Expert.Result Comment: eGFR is race adjusted. AA=.Performed By: #### 8434157, 4691023, 9280013, [id number] ####[facility] [address] [place], [place] [address]WJU/1.73 sq M.predicted among non-blacks MDRD (S/P/Bld) [Vol rate/Area] mL/min/{1.73_m2}Normal>=59[facility] Hospital - DublinComment on above:Order Comment: Order added by Discern Expert.Result Comment: Chronic kidney disease could be indicated at eGFR's of less than 60 mL/min/1.73m2. Kidney failure is indicated at less than 15 mL/min/1.73m2.Performed By: #### [id number], 7665868, 9551765, [id number] ####[facility] [address] [place], [place] [address]TA MAMM SCREEN 3D FRED CADon 97-17-6015RZ MAMM SCREEN 3D FRED CADPatient: SHARYN RIGGS Exam Date: 11/18/2022 : 1955 Gender:F Ordering : DR YUN GLOVER M.D. Admission #: [id number] Family : Order #: [id number] CLICK HERE TO VIEW EXAM RADIOLOGY REPORT [...] colon cancer at age 87. LOCATION: [facility] BREAST COMPOSITION: Scattered areas fibroglandular density. [...] by: Solomon Vincent MD on 11/18/2022 at 11:45[facility] COVID Quick Testingon 51-12-3999XqdfkiZdfmyckwXfsnm [employer] Other Vital Signs Date TimeVital SignValuePerforming XmysqcxpyCbpguzfv39-08-2522 18:25-0400Body nlrbsi608.18 cmGreen [facility]05-07-2025 18:25-0400Body mass index (BMI) [Ratio]33 kg/e2UytrlwyvyGreen Cross Hospital05-07-2025 18:25-0400Body luytuepstfu94.6 [degF][facility]05-07-2025 18:25-0400Body .7 kgGreen Cross Hospital05-07-2025 18:25-0400Diastolic blood hdaorfpd75 mm[Hg][facility] 03-27-2025 18:25-0400Heart rate72 /[facility] 03-27-2025 18:25-0400Respiratory rate18 /[facility] 03-27-2025 18:25-7456IoV3% (BldA) [Mass fraction]96 %[facility]05-07-2025 18:25-0400Systolic blood nhaaldjf547 mm[Hg][facility]01-28-2025 08:38-0500Body .18 cmGreen Cross Hospital01-28-2025 08:38-0500Body mass index (BMI) [Ratio]32.2 kg/m2 [facility]01-28-2025 08:38-0500Body irngxbajopu44.7 [degF][facility]01-28-2025 08:38-0500Body yowixs63.44 kg [facility]01-28-2025 08:38-0500Diastolic blood pzacmgco59 mm[Hg][facility]01-28-2025 08:38-0500Heart rate62 /min [facility]01-28-2025 08:38-9880MmK6% (BldA) [Mass fraction]96 %[facility]01-28-2025 08:38-0500Systolic blood mm[Hg][facility]11-25-2024 08:34-0500 Body .18 cmGreen [facility] Hospital11-25-2024 08:34-0500Body mass index (BMI) [Ratio]31.4 kg/z0ZzvbclzctGreen Cross Hospital11-25-2024 08:34-0500Body ymcdcilmyih20.1 [degF][facility]11-25-2024 08:34-0500Body jlfvyb46.17 kgGreen Cross Hospital11-25-2024 08:34-0500Diastolic blood tmcorgqh96 mm[Hg][facility] 10-15-2024 08:34-0500Heart rate73 /[facility] 10-15-2024 08:34-0500Systolic blood mm[Hg][facility]07-21-2024 11:34-0400Body aefrlp532.18 cmGreen Cross Hospital07-21-2024 11:34-0400Body mass index (BMI) [Ratio]32.4 kg/x6CztonfgeoGreen Cross Hospital07-21-2024 11:34-0400Body sccbxvmpxba87.7 [degF][facility]07-21-2024 11:34-0400Body kgGreen Cross Hospital07-21-2024 11:34-0400Diastolic blood azsjafxm68 mm[Hg][facility]07-21-2024 11:34-0400Heart rate76 /[facility]07-21-2024 11:34-1091QeT9% (BldA) [Mass fraction]97 %[facility]07-21-2024 11:34-0400Systolic blood ijpnxars734 mm[Hg] [facility]12-18-2023 08:30-0500Body yvroai568.45 cmYun Glover Other [employer] Other 12-18-2023 08:30-0500Body mass index (BMI) [Ratio] 31.17 kg/v0PqpspfYun Glover Other [employer] Other 12-18-2023 08:30-0500Body ucwwph84.63 kgYun Glover Other [employer] Other 12-18-2023 08:30-0500Diastolic blood qbqmlnyy49 mm[Hg] Yun Adalberto Other [employer] Other 12-18-2023 08:30-0500Systolic blood eftdmtby189 mm[Hg] Yun Glover Other [employer] Other 09-16-2023 10:10-0400Body ipryez367.45 cmPamela Tamara Other [employer] Other 09-16-2023 10:10-0400Body mass index (BMI) [Ratio] 30.86 kg/y0Jxqznv Tamara Other [employer] Other 09-16-2023 10:10-0400Body .9 [degF]Camila Tamara Other [employer] Other 09-16-2023 10:10-0400Body .72 kgPamela Atmara Other [employer] Other 09-16-2023 10:10-0400Diastolic blood agytkpdk82 mm[Hg] Camila Tamara Other [employer] Other 09-16-2023 10:10-0400Respiratory rate18 /minPamela Tamara Other [employer] Other 09-16-2023 10:10-5356PdC6% (BldA) [Mass fraction]97 % Camila Tamara Other [employer] Other 09-16-2023 10:10-0400Systolic blood zqnpykiw340 mm[Hg] Camila Mcdonald Other [place] [employer] Other 03-20-2023 14:06-0400Diastolic blood mtpzyxds94 mm[Hg] Rodgers SALAM [place]03-20-2023 14:06-0400Heart rate59 /minMaher SALAM [place]03-20-2023 14:06-0400Mean blood mm[Hg]Rodgers SALAM [place]03-20-2023 14:06-0400 Respiratory rate17 /minMaher SALAM [place]03-20-2023 14:06-6110JtA4% (BldA) [Mass fraction]96 %Rodgers SALAM [place]03-20-2023 14:06-0400 Systolic blood whlydsrw813 mm[Hg]Rodgers SALAM [place]03-20-2023 13:55-0400 Diastolic blood xzgepykx60 mm[Hg]Rodgers SALAM [place]03-20-2023 13:55-0400Heart rate58 /minMaher SALAM [place]03-20-2023 13:55-0400Mean blood mm[Hg]Rodgers SALAM [place]03-20-2023 13:55-0400 Respiratory rate14 /minMaher SALAM [place]03-20-2023 13:55-9178MvT9% (BldA) [Mass fraction]100 %Rodgers SALAM [place]03-20-2023 13:55-0400 Systolic blood pcnxnnoo605 mm[Hg]Rodgers SALAM [place]03-20-2023 13:50-0400 Diastolic blood ufmppzxk77 mm[Hg]Rodgers SALAM [place]03-20-2023 13:50-0400Heart rate50 /minMaher SALAM [place]03-20-2023 13:50-0400Mean blood ggekoxoi01 mm[Hg]Rodgers SALAM [place]03-20-2023 13:50-0400 Respiratory rate15 /minMaher SALAM [place]03-20-2023 13:50-7953HrK3% (BldA) [Mass fraction]98 %Rodgers SALAM [place]03-20-2023 13:50-0400 Systolic blood qdzgsqsu240 mm[Hg]Rodgers SALAM [place]03-20-2023 13:41-0400Body wlxxespiifr99.24 [degF]Rodgers SALAM [place]03-20-2023 12:51-0400Blood Pressure LocationLaher SALAM [place]03-20-2023 12:51-0400Body ytnqpkekxja75.34 [degF]Rodgers SALAM [place]03-20-2023 12:51-0400 Respiratory rate18 /minMaher SALAM [place]11-23-2021 11:15-0500Body ecgvlm302.18 Kevon Whitlock Other [employer] Other 11-23-2021 11:15-0500Body mass index (BMI) [Ratio] 31.32 kg/i3DnytlxnseBabita Whitlock Other [employer] Other 11-23-2021 11:15-0500Body qlhalqsreru58.8 [degF] Babita Whitlock Other [employer] Other 11-23-2021 11:15-0500Body pvsfih86.72 kgStbud Whitlock Other [employer] Other 11-23-2021 11:15-2492MvJ7% (BldA) [Mass fraction]96 % Babita Whitlock Other [employer] Other Encounters Encounter DateEncounter TypeCare ProviderFacilityStart: 03-27-2025 End: 98-67-1571qamgwpsfdbIyjwjmwloFulton County Health Center Work Phone: Start: 03-27-2025 End: 04-76-4513Aimomgh encounter procedureAngel [facility] Work Phone: Start: 12-18-2024 End: 58-22-8550yxxrowkvqgEmssoacfuFulton County Health Center Work Phone: Start: 12-18-2024 End: 21-83-9749Npbbcoq encounter procedureFirwinchester medical [facility] Work Phone: Start: 10-15-2024 End: 27-88-0187Uizghgd encounter procedureFirpotts [facility] Work Phone: Start: 06-10-2024 End: 40-24-6140gizgkewfguYojsjrioxFulton County Health Center Work Phone: start: 06-10-2024 End: 95-92-3047Bcombka encounter procedureAngel [facility] Center [facility] Work Phone: Start: 11-17-2023 End: 25-58-6411kbhucfcbxqKetfou Braun Other [employer] Other Start: 65-92-0526Pbvanqhnw encounterMarcia [facility] Centertart: 11-16-2023 End: 14-60-3167mhdanqmuckAkxgxj Braun Other [employer] Other Start: 22-29-1366Gwbsukpoz encounterMarcia [facility] Care Centertart: 73-05-8377Kiknefcfd for gynecological examination (general) (routine) without abnormal findingsMarcia [facility] Start: 21-88-7458Kniiufg encounter procedureMarcielsa [facility] Start: 11-07-2023 End: 31-29-4764pqlpgyvdioCefggm E BraunFacility:[facility] Hospitaltart: 11-07-2023 End: 83-78-9649xrtelmjmmrVN Yun Adalberto Work Phone: [facility] Work Phone: Start: 11-07-2023 End: 51-14-1296Raiiqble Referred Yun Adalberto Work Phone: [facility] [place] Work Phone: Start: 10-25-2023 End: 88-69-5166igqaxwyggzKphiuo Braun Other [employer] Other Start: 58-00-6156Jifdsbluu for general adult medical examination without abnormal findingsMarcia [facility] Centertart: 80-17-7837Gjkbyxdbo encounterMarcia [facility] ClinicStart: 06-03-0303Uoyzgt outpatient visit 15 minutesPamela DymondFPG [facility] Start: 08-06-2023 End: 52-72-0736tahtmrvfniCY Marcia E Braun Work Phone: [facility] [employer] Other Start: 08-06-2023 End: 59-33-9062Pnshlke encounter procedureMD Yun Glover Work Phone: [facility] Work Phone: Start: 04-16-2023 End: 54-25-5696oxrjylvsheHF MARCIA E BRAUNFacility:J7Cswjj: 11-53-0701psyqywfhhm DR YUN GLOVERFacility:P6Xrpcl: 02-24-2023(Televisit) TelevisitYun Glover [facility]: 02-24-2023 End: 08-22-6651zwaaerugwiPuawff Braun Other [place] [employer] Other Start: 02-07-2023 End: 91-02-6147dkwmjtlnjnGhgbn SALAMFacility:FTMCStart: 02-07-2023 End: 78-09-3022Egempdf encounter procedureMaher SALAM [place] Start: 12-10-2022 End: 85-77-6284oedygdcekeRtqk A MylesmetzFacility:FTMCStart: 12-10-2022 End: 15-66-7684zjmmmqyrvqVhjn A SteinmetzFacility:[facility] DHStart: 12-10-2022 End: 27-53-9213Qpbbmab encounter procedureBeth A Gilberto [place] Start: 11-18-2022 End: 67-01-5843mtrzuaslmcNQGayle GLOVERFacility:M6Slifp: 73-99-2309Oonrb health examinationCamila Mcdonald Other [employer] Other Start: 50-87-9388Ztmolqozapvmm examination normal Camila Mcdonald Other [employer] Other Start: 10-13-2021 End: 04-38-5227udcwkrgfcoHduapmcwi Kamlesh Other [place] [employer] Other Start: 71-22-8803Iogbuo outpatient visit 15 minutes Babita WhitlockFPArun [facility] Procedures DateProcedureProcedure DetailPerforming ClinicianStart: 74-08-3146M-ray of left footMD Yun Glover Work Phone: Start: 53-40-5773XccotlymrhtIbzkb SALAM Start: 73-01-4135Zfaenmoxj and biopsy of upper gastrointestinal tractBeok Macias Start: 90-45-5107DwjpezpuqkjCciw Gilberto Start: 31-59-7472Ncovxujpk for malignant neoplasm of colonCamila Mcdonald Other Start: 96-88-1655Hlhvnwl examination of Johnnie Mcdonald Other TonsillectomyBeok Macias Plan of Treatment DateCare ActivityDetailAuthorStart: 19-17-0708IeucrkojdGreen Cross Hospital Human papilloma virus 16+18+31+33+35+39+45+51+52+56+58+59+66+68 DNA [Presence] in Cervix by Probe with signal amplificationGreen Cross Hospital Immunizations Immunization DateImmunizationNotesCare VosepwlpZgteizpd05-74-4762vfzgnedxf virus vaccine, split virus (incl. purified surface antigen)Camila Mcdonald Other [employer] Other [id number] virus vaccine, unspecified formulationRacheal Macias 787-8912Efilzj-LzkpiMercy Health Defiance Hospital06-21-2022 COVID-19 Vaccine Pfizer - Documentation Purposes Erin Tamara Other [facility]06-21-2022SARS-CoV-2 mRNA (coutlmilgaq-ljtb-rgsvdau) vaccineBeok Macias 154-5752Enlued-IhomyMercy Health Defiance Hospital12-10-2021 influenza virus vaccine, split virus (incl. purified surface antigen)Camila Tamara Other [place] [employer] Other 1403697-91-5713yjldgbtwe virus vaccine, unspecified formulationRacheal Macias 045-6151Gjiamk-RifrdMercy Health Defiance Hospital11-22-2021 SARS-CoV-2 (COVID-19) mRNA-1273 vaccineBeok Macias 678-1662Tkgcki-FrfeiMercy Health Defiance Hospital03-10-2021 SARS-CoV-2 (COVID-19) Ad26 vaccine, recombinantBeok Macias 247-6561Htqhbk-BjrpyMercy Health Defiance Hospital11-16-2019 influenza virus vaccine, unspecified formulationRacheal Macias 731-8895Ziqaqf-NhqayMercy Health Defiance Hospital11-16-2019 pneumococcal polysaccharide vaccine, 23 valentBeok Macias 468-0225Wcfpjl-BtfwsMercy Health Defiance Hospital10-25-2018 influenza virus vaccine, split virus (incl. purified surface antigen)Camila Tamara Other [place] [employer] Other 1284679-44-1494kycoaenfi virus vaccine, unspecified formulationRacheal Macias 762-8202Etksqx-UpgjkMercy Health Defiance Hospital10-02-2012 tetanus and diphtheria toxoids, adsorbed, preservative free, for adult use (5 Lf of tetanus toxoid and 2 Lf of diphtheria toxoid)Camila Tamara Other [facility] Payers DatePayer CategoryPayerPolicy [id number]-qwc [id number] Health [id number] [id number] 2.16.840.1.609254.3.579.2.727 [id number] 2.16.840.1.760652.3.57[id number] 2.16.840.1.883448.3.57[id number] 2.16.840.1.528475.3.57[id number] 2.16.840.1.7[id number] 2.16.840.1.747101.3.579.2.531 [id number] 2.16.840.1.670475.3.579.2.531 Social History DateTypeDetailFacilityUnknown if ever smokedNort [employer] Other Sex Assigned At [facility] Start: 12-10-2022 End: 03-41-3835Itxtqla smoking statusEx-smoker (finding)[facility] Digestive HealthTobacco smoking statusNeverUniversity Hospitals [facility] Digestive HealthStart: 02-29-4607Tsh Assigned At [facility]: 12-18-2024 End: 01-73-9915ZlqSdajzt (finding)[facility] Functional Status CdmnMzkxyytzvwHydknsZkekqpfq54-90-6022Hmbbhjiubn StatusN/AFtonia [facility] Clinical Notes 10-13-2021 to 10-15-2024 Note Date & HhdcIwiuQwknphzs73-03-1230 Evaluation note* Diagnosis Onset Date Resolution Status Admit Date Sinusitis, acute maxillary acuteNovember 2023 8:31am [facility] Work Phone: [phone] Evaluation note* Encounter Date Diagnosis Assessment Notes Treatment Notes Treatment Clinical Notes Oct, GERD [Gastroesophageal reflux di sease] (ICD9-CM - 530.81) [employer] Other 12-18-2023 Evaluation note* Encounter Date Diagnosis [...] her satisfaction and patient sent home stable [employer] Other 12-05-2023 Evaluation note* Encounter Date Diagnosis Assessment Notes Treatment Notes Treatment Clinical Notes Oct, Wellness examination (ICD-10 - Z 00.00) Oct,Mixed hyperlipidemia (ICD-10 - E78.2) [employer] Other 09-16-2023 Evaluation note* Encounter Date Diagnosis [...] no improvement in 2 to 3 days [employer] Other 04-06-2023 Evaluation note* Encounter Date Diagnosis [...] trips for work that are coming up. [employer] Other 03-22-2023 Note [id number]:[id number] 02-07-2023 Hospital Discharge instructions Patient Education 02/07/2023 13:45:47 Colonoscopy, Care After Surgery Salam (CUSTOM) Colonoscopy Care After Surgery Please read the instructions outlined below and refer to this sheet in the next few weeks. These discharge instructions provide you with general information on [facility] Your [facility] may also give you [...] 08/03/2005 Document Revised: 02/22/2019 Document Reviewed: 02/22/2019 [employer] Patient Education 2020 [employer]. 02/07/2023 13:45:47 Hemorrhoids, Kdeu-so-Cuul Hemorrhoids Hemorrhoids are swollen veins that may [...] 3 times a day. General instructions Take mini-hoi-cwbwucb and prescription medicines only as told by [...] 08/16/2009 Document Revised: 11/15/2019 Document Reviewed: 03/29/2019 [employer] Patient Education 2020 [employer]. Follow Up Care 12/10/2022 15:05:12 With:Vishal WOODARD Address: [address] [place] [address]. [address] [place] [address] [facility] (1) When:1 to 2 weeks Comments:Call for any problems. Office will call to schedule follow up appointment. [place]03-20-2023 Evaluation + Plan noteExtracted from: Title:ANES Post-operative Note - GeneralAuthor:Ellis Prescott Jr., DO GDate: 02/07/23 Plan Transfer/Discharge: Transfer/Discharge Discharge when meets criteria ( From PACU to Ambulatory Surgery Unit, and To home ). Extracted from:Title:ANES Pre-operative Note - EndoAuthor:Ellis Prescott Jr., DO GDate:02/07/23 Plan [place] [employer] (ASA) physical status classification: Class II. Anesthetic Preoperative Plan: Anesthesia General, and -TIVA.[place]11-23-2021 Evaluation note* Encounter Date Diagnosis Assessment Notes [...] Patient care instructions given in writting by [facility] Care At Home document. [facility] [employer] Other Evaluation + Plan note Future Appointments Appointment Date:02/07/2023 01:30:00 PM Scheduled Provider: Location:[facility] Appointment Type:Surgery FT [place] note[place] assessment information available [facility] Work Phone: [facility]No [facility] [employer] Other History general Narrative - Reported* Type Description Date Medical History Hyperlipidemia Medical HistoryAcid refluxSurgical Historyhip surgery as a child [facility] [employer] Other Hiszywx general Narrative - Reported* Type Description Date Medical History Hyperlipidemia Medical HistoryAcid refluxMedical HistoryArthritisSurgical Historyhip surgery as a child [facility] [employer] Other Hospital course Narrative No data available for this section [facility] No data available for this section [place] No data available for this section [place] Summary Purpose Family History Relationship Condition Age [...] X 2 DAYS, COVID Provider VisitCOVID Positive- [phone] FOOT ON TOP, THROBBING PAINmessagewellnessRefilllabs Patient Care [...] content) DATE CREATED AUTHOR 02/25/2023 [facility] DATE CREATED AUTHOR AUTHOR'S ORGANIZ ATION 04/29/2023 [facility] DATE CREATED AUTHOR AUTHOR'S ORGANIZ ATION 11/11/2023 [facility] Goals (unrecognized section and content) Goals [...] BE BASED ON THE PRIMARY CLINICAL RECORDS. [employer] [facility]. provides no warranty or guarantee of the accuracy or completeness of information in this document.
--- NOTE | 2025-11-18 10:38 | XR_ITS ---
The [address] [address] Patient Name: JUANITA STOKES MRN: [id number] date: 1955 Sex: F Assigned Patient Location: [facility] Current Patient Location: [facility] Accession/Order Number: [id number] Exam Date: 11/18/2025 10:56 Report Date: 11/18/2025 11:19 At the request of: KENTRELL DAY DPJustine Procedure: XR foot FRED min 3V BILATERAL FEET - 3 views each CLINICAL DATA: Bilateral foot pain and corns COMPARISON: None Weightbearing AP, lateral and oblique views were obtained. There are no acute fractures or dislocation. There is spurring at the dorsum of the tarsals. There is also minor degenerative change at the right first metatarsal phalangeal joint. No soft tissue swelling is noted. XR/XR foot FRED min 3V IMPRESSION: MINOR DEGENERATIVE CHANGES. NO ACUTE BONY FINDINGS. Impression dictated by: Alba Vaughan M.D. 11/18/2025 11:19 AM Dictation Location: [place] [address] Electronically authenticated by: [id number] Y Date: 11/18/2025 11:19
== END 2025-11-18 10:31 | disposition home or self-care (01) ==
LOC: RAD 10:32
PROVIDERS: PCP Family Medicine; Visit Provider Podiatrist Foot & Ankle Surgery
DX: M25.532 Pain in left wrist (principal); M85.88 Other specified disorders of bone density and structure, other site; M79.671 Pain in right foot; M79.672 Pain in left foot
CPT/HCPCS: 73110; 73630